=== PATIENT | female | born 1960 | race Caucasian/White ===

== ENCOUNTER 2020-06-20 12:07 | Outpatient (CLI) | payer BC, SELFPAY ==
[2020-06-20 12:49] LABS: Hematocrit 35.3 % (37.0-47.0); Hemoglobin 11.3 g/dL (12.0-15.0); Mean Corpuscular Hemoglobin 24.6 pg (26-34); Mean Corpuscular Volume 76.7 fl (80-100); Mean Platelet Volume 9.1 fl (7.4-10.4); Platelet Count Result 274 k/mm3 (150-375); Reticulocyte Hemoglobin Conten 27.4 pg (28.2-35.7); Reticulocytes Absolute 0.07 B/L (32.2-175.7); White Blood Count 6.6 K/mm3 (4.5-10.0)
[2020-06-20 13:51] LABS: Iron 34 ug/dL (37-170)
[2020-06-20 14:08] LABS: Folic Acid 12.9 ng/mL (2.76->20)
[2020-06-20 14:27] LABS: Ferritin 5.94 ng/mL (11.1-264)
== END 2020-06-20 12:08 | disposition home or self-care (01) ==
PROVIDERS: PCP Internal Medicine
DX: D50.0 Iron deficiency anemia secondary to blood loss (chronic) (principal)
CPT/HCPCS: 36415; 82607; 82728; 82746; 83540; 85027; 85046

== ENCOUNTER 2022-01-20 19:01 | Emergency (ER) | payer BC, SELFPAY ==
--- NOTE | ~2022-01-20 | XR_ITS ---
XR chest 2V 01/20/2022 19:21 Indication: Cough. Nonsmoker. Procedure: 2 view chest Comparison: 12/10/2016 Findings: There is subsegmental atelectasis of both lungs in the mid thorax. No focal pneumonia, juanito a, effusion or pneumothorax. Borderline heart size. Impression: 1: Bilateral subsegmental atelectasis of the mid lungs. Reviewed, dictated and finalized at location A. Impression: 1: Bilateral subsegmental atelectasis of the mid lungs.
[2022-01-20 19:10] VITALS: BP 219/97; PULSE 82; RESP 16; TEMP 37.1; O2SAT 98
--- NOTE | 2022-01-20 19:11 | ED.URI ---
HPI - URI/Sore Throat General Stated Complaint: sob Time Seen by Provider: 01/20/22 19:11 Source: patient and RN notes reviewed Mode of arrival: ambulatory Limitations: no limitations History of Present Illness HPI Narrative: 61-year-old female presents to the [facility] with complaints of chest pressure, cough and shortness of breath for approximately 1 week. States he got worse 2 days ago. patient called her primary care provider was called in a steroid but came here requesting a chest x-ray. Has not started her medications. Patient states that she did call her primary care provider and was not able to see her in office, was instructed to go the ER if she is having chest pressure. Patient states that when she was talking to her primary they told her to use an inhaler and if it does not get better to go to the ER. Pertinent past history: pneumonia, asthma, seasonal allergies and other (Hypertension) Onset (ago): day(s) (2) Related Data Home Medications Medication Instructions Recorded Confirmed albuterol sulfate 90 mcg/actuation 2 puff inhalation Q4H PRN 06/22/19 aerosol inhaler (ProAir HFA) baclofen 10 mg tablet 10 mg PO BID 06/22/19 celecoxib 200 mg capsule (Celebrex) 200 mg PO DAILY 06/22/19 clobetasol 0.05 % topical ointment 1 applic topical BID 06/22/19 epinephrine 0.1 mg/mL injection 0.1 mg IM Q10M PRN 06/22/19 syringe esomeprazole magnesium 40 mg 40 mg PO DAILY 06/22/19 capsule,delayed release (Nexium) estradiol 0.01% (0.1 mg/gram) 1 gm vaginal 3XW 06/22/19 vaginal cream (Estrace) ketoconazole 2 % topical cream 1 applic topical DAILY 06/22/19 labetalol 200 mg tablet 200 mg PO Q12H 06/22/19 montelukast 10 mg tablet 10 mg PO DAILY 06/22/19 (Singulair) pregabalin 75 mg capsule (Lyrica) 75 mg PO BID 06/22/19 sertraline 100 mg tablet 100 mg PO DAILY 06/22/19 tacrolimus 0.1 % topical ointment 1 applic topical BID 06/22/19 levothyroxine 100 mcg tablet 100 mcg DIRECTED 01/20/22 01/20/22 (Synthroid) losartan 100 mg tablet 100 mg DIRECTED 01/20/22 01/20/22 rosuvastatin 10 mg tablet 10 mg DIRECTED 01/20/22 01/20/22 trazodone 50 mg tablet 50 mg DIRECTED 01/20/22 01/20/22 Allergies Allergy/AdvReac Type Severity Reaction Status Date / Time acetaminophen Allergy Intermediate Unknown Verified 10/03/19 08:54 kiwi Allergy Unknown Swelling Unverified 10/03/19 08:54 propoxyphene AdvReac Unknown Nausea and Unverified 10/03/19 08:54 Vomiting Wasp Allergy Severe Swelling Uncoded 10/03/19 08:54 [employer] Allergy Unknown Swelling Uncoded 10/03/19 08:54 Review of Systems Review of Systems: All systems reviewed & are unremarkable except as noted in HPI and below Constitutional: Constitutional: Reports no additional constitutional complaints, Denies chills and Denies fever(s) Eyes: Eyes: Reports no additional eye complaints ENT: Reports system reviewed and no additional complaints, except as documented Cardiovascular: Cardiovascular: Reports as per HPI and Denies chest pain Respiratory: Respiratory: Reports as per HPI, Reports chest congestion, Reports cough and Reports dyspnea Gastrointestinal: Gastrointestinal: Reports no additional gastrointestinal complaints Musculoskeletal: Musculoskeletal: Reports no additional musculoskeletal complaints Integumentary/Breasts: Skin/Breast: Reports system reviewed and no additional complaints, except as docu Neurologic: Reports system reviewed and no additional complaints, except as documented Psychiatric: Psychiatric: Reports no additional psychiatric complaints Allergic/Immunologic: Allergic/Immunologic: Reports no additional allergic/immunologic complaints [facility] Past Medical History Medical History (Updated 01/20/22 @ 19:49 by Blank Barnes, ADRIANA) FESTUS positive Berg's palsy Chronic cough 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
[2022-01-20 19:47] VITALS: BP 180/106
--- NOTE | 2022-01-20 20:33 | ECG_ITS ---
Measurements Intervals [place] Rate: 75 P: 60 [place]: 155 QRS: 15 QRSD: 92 T: 21 QT: 345 QTc: 387 Interpretive Statements SINUS RHYTHM POSSIBLE LEFT ATRIAL ENLARGEMENT DELAYED PRECORDIAL R/S TRANSITION BORDERLINE ECG Electronically Signed On 01-21-2022 13:25:53 CDT by Mateo Morillo D.O.
== END 2022-01-20 19:47 | disposition short-term general hospital (02) ==
PROVIDERS: Emergency Provider Nurse Practitioner
DX: R06.02 Shortness of breath (principal); I10 Essential (primary) hypertension; J98.11 Atelectasis; M47.816 Spondylosis without myelopathy or radiculopathy, lumbar region
CPT/HCPCS: 71046; 93005; 99213; G0463

== ENCOUNTER 2022-01-20 20:06 | Observation (INO) | payer BC, SELFPAY ==
--- NOTE | 2022-01-20 20:10 | ECG_ITS ---
Measurements Intervals [place] Rate: 74 P: 57 AR: 151 QRS: 13 QRSD: 90 T: 18 QT: 357 QTc: 397 Interpretive Statements SINUS RHYTHM POSSIBLE LEFT ATRIAL ENLARGEMENT DELAYED PRECORDIAL R/S TRANSITION BORDERLINE ECG Electronically Signed On 01-20-2022 21:27:40 CDT by Mateo Morillo D.O.
[2022-01-20 20:31] LABS: Basophils Percent Auto 0.4 % (0.2-1.2); Eosinophils Absolute Auto 0.4 K/mm3 (0-0.3); Eosinophils Percent Auto 4.6 % (0-4.4); Hematocrit 42.1 % (37.0-47.0); Hemoglobin 14.5 g/dL (12.0-15.0); Immature Granulocyte Absolute 0.05 K/mm3 (0.00-0.031); Immature Granulocyte Percent A 0.6 % (0-0.5); Lymphocytes Absolute Auto 1.53 K/mm3 (0.9-3.2); Lymphocytes Percent Auto 16.9 % (18.3-44.2); Mean Corpuscular HGB Conc 34.4 g/dl (32-36); Mean Corpuscular Hemoglobin 31.9 pg (26-34); Mean Corpuscular Volume 92.5 fl (80-100); Mean Platelet Volume 8.6 fl (7.4-10.4); Monocytes Absolute Auto 0.8 K/mm3 (0.1-0.6); Monocytes Percent Auto 8.8 % (2.6-8.5); Neutrophils Absolute Auto 6.2 K/mm3 (1.3-6.7); Neutrophils Percent Auto 68.7 % (45.5-73.1); Platelet Count Result 227 k/mm3 (150-375); Red Blood Count 4.55 M/mm3 (4.2-5.4); Red Cell Distribution Width 13.1 % (11.5-14.5); White Blood Count 9.1 K/mm3 (4.5-10.0)
[2022-01-20 20:34] VITALS: BP 180/86; PULSE 78; RESP 20; TEMP 36.4; O2SAT 98
[2022-01-20 20:41] LABS: Alanine Aminotransferase 22 U/L (6-35); Albumin Level 4.2 g/dL (3.5-5.1); Alkaline Phosphatase 105 U/L (38-126); Anion Gap 6 mmol/L (8-16); Aspartate Amino Transferase 21 U/L (14-36); Bilirubin,Total 0.3 mg/dL (0.2-1.3); Blood Urea Nitrogen 16 mg/dL (7-17); Calcium 9.7 mg/dL (8.4-10.2); Carbon Dioxide 29 mmol/L (22-30); Chloride 98 mmol/L (98-107); Estimated Glomerular Filt Rate > 60; Glucose 113 mg/dL (65-110); Lipase 83 U/L (23-300); Sodium 133 mmol/L (137-145)
[2022-01-20 20:42] LABS: Prothrombin Time 13.2 Seconds (11.1-14.7)
[2022-01-20 20:43] LABS: Partial Thromboplastin Time 25.7 SECONDS (22.3-36.8)
[2022-01-20 20:53] LABS: Troponin I < 0.012 ng/mL (0.000-0.034)
[2022-01-21] VITALS (16 sets, daily range): BP systolic 146–188; BP diastolic 68–100; PULSE 62–88; RESP 15–19; TEMP 36.6–37.1; O2SAT 95–99; BMI 52.6
--- NOTE | 2022-01-21 02:14 | ED.CHESTPAIN ---
HPI - Chest Pain General Chief Complaint: Chest Pain Stated Complaint: chest pain, cough Time Seen by Provider: 01/21/22 01:46 History of Present Illness HPI narrative: Patient is a 61-year-old female who presents ER with central chest pain. Pressure. Constant for 3 days. Makes her short of breath especially with walking. No runny nose or sore throat or productive cough. Took a home COVID test but it was negative. 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 She was referred here by urgent care due to chest pain. No history of coronary disease. No alleviating factors. No radiation. Related Data Home Medications Medication Instructions Recorded Confirmed albuterol sulfate 90 mcg/actuation 2 puff inhalation Q4H PRN 06/22/19 01/20/22 aerosol inhaler (ProAir HFA) Shortness Of Breath Or Wheezing baclofen 10 mg tablet 10 mg PO BID 06/22/19 01/20/22 celecoxib 200 mg capsule (Celebrex) 200 mg PO DAILY 06/22/19 01/20/22 clobetasol 0.05 % topical ointment 1 applic topical BID 06/22/19 01/20/22 epinephrine 0.1 mg/mL injection 0.1 mg IM Q10M PRN Shortness Of 06/22/19 01/20/22 syringe Breath esomeprazole magnesium 40 mg 40 mg PO DAILY 06/22/19 01/20/22 capsule,delayed release (Nexium) estradiol 0.01% (0.1 mg/gram) 1 gm vaginal 3XW 06/22/19 01/20/22 vaginal cream (Estrace) ketoconazole 2 % topical cream 1 applic topical DAILY 06/22/19 01/20/22 labetalol 200 mg tablet 200 mg PO Q12H 06/22/19 01/20/22 montelukast 10 mg tablet 10 mg PO DAILY 06/22/19 01/20/22 (Singulair) pregabalin 75 mg capsule (Lyrica) 75 mg PO BID 06/22/19 01/20/22 sertraline 100 mg tablet 100 mg PO DAILY 06/22/19 01/20/22 tacrolimus 0.1 % topical ointment 1 applic topical BID 06/22/19 01/20/22 levothyroxine 100 mcg tablet 100 mcg DIRECTED 01/20/22 01/20/22 (Synthroid) losartan 100 mg tablet 100 mg DIRECTED 01/20/22 01/20/22 rosuvastatin 10 mg tablet 10 mg DIRECTED 01/20/22 01/20/22 trazodone 50 mg tablet 50 mg DIRECTED 01/20/22 01/20/22 Allergies Allergy/AdvReac Type Severity Reaction Status Date / Time kiwi Allergy Unknown Swelling Verified 01/20/22 20:39 oseltamivir [From Tamiflu] Allergy Hives Verified 01/20/22 20:39 tramadol Allergy Other Verified 01/20/22 20:39 propoxyphene AdvReac Unknown Nausea and Verified 01/20/22 20:39 Vomiting Wasp Allergy Severe Swelling Uncoded 10/03/19 08:54 [place] Allergy Unknown Swelling Uncoded 10/03/19 08:54 Review of Systems Review of Systems: All systems reviewed & are unremarkable except as noted in HPI and below Constitutional: Constitutional: Denies chills and Denies fever(s) ENT: Denies nasal congestion and Denies sore throat Cardiovascular: Cardiovascular: Reports chest pain, Denies rapid heart rate and Denies radiating jaw, neck or arm pain Respiratory: Respiratory: Reports cough, Reports dyspnea and Denies wheezing Gastrointestinal: Gastrointestinal: Denies abdominal pain, Denies nausea and Denies vomiting PMFSH Past Medical History Medical History (Updated 01/21/22 @ 04:34 by Rajendra Bowling MD) FESTUS positive Berg's palsy Chronic cough Hemorrhoid 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
[2022-01-21] MEDS: NITROGLYCERIN SL 0.4 MG TABLET SUBLINGUAL (02:37)
[2022-01-21 02:38] LABS: D Dimer < 0.27 ug/mL (<0.48)
[2022-01-21 02:52] LABS: Troponin I < 0.012 ng/mL (0.000-0.034)
[2022-01-21 05:30] LABS: SARS-CoV-2 RNA PCR Negative
--- NOTE | 2022-01-21 07:35 | ADMGEN ---
This patient, Alan Santiago, was admitted to Intensive Care Unit-4. Patient/family oriented to hospital policies and general routines including ID bracelet, bed and alarms, visiting hours, pain management, procedures, bathroom and other care routines, personal items, smoking policy, room service/diet, and visiting hours. Information on how to activate the Rapid Response Team has been discussed. Patient/Family are encouraged to report perceived risks to care and to ask questions if they do not understand what they are told or what they should do.
[2022-01-21] MEDS: carBAMazepine 200 MG TABLET 400 MG PO (09:29)
[2022-01-21] MEDS: MIRABEGRON 25 MG ER TABLET PO (11:05)
[2022-01-21] MEDS: hydroCHLOROthiazide 12.5 MG CAPSULE PO (11:06)
[2022-01-21] MEDS: LABETALOL HCL 100 MG TABLET 200 MG PO ×2 (11:06→21:26)
[2022-01-21] MEDS: BACLOFEN 10 MG TABLET PO ×2 (11:07→21:25)
[2022-01-21] MEDS: LOSARTAN POTASSIUM 100 MG TABLET BY MOUTH (11:09)
[2022-01-21] MEDS: SERTRALINE HCL 50 MG TABLET 100 MG PO (11:09)
[2022-01-21] MEDS: ROSUVASTATIN 10 MG TABLET PO (11:10)
[2022-01-21] MEDS: CELECOXIB 200 MG CAPSULE PO (11:10)
--- NOTE | 2022-01-21 11:52 | PM.IMHP ---
H&P: HPI History of Present Illness Date/Time: 01/21/22 11:52 Chief Complaint: Patient is a 61-year-old female who presents ER with central chest pain.? Pressure.? Constant for 3 days.? Makes her short of breath especially with walking.? No runny nose or sore throat or productive cough.? Took a home COVID test but it was negative.? 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 She was referred here by urgent care due to chest pain.? No history of coronary disease.? No alleviating factors.? No radiation. 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mily history of congestive heart failure Mother Family history of malignant neoplasm Family history of emphysema Hypertension Family history of arthritis Family history of chronic obstructive pulmonary disease Social History Social History Smoking status: Never smoker Alcohol intake: never Substance use: never Spiritual care concerns: No Meds Home Medications and Allergies Home Medications Medication Instructions Recorded Confirmed Type albuterol sulfate 90 mcg/actuation 2 puff inhalation Q4H PRN 06/22/19 01/21/22 History aerosol inhaler (ProAir HFA) Shortness Of Breath Or Wheezing baclofen 10 mg tablet 10 mg PO BID 06/22/19 01/21/22 History celecoxib 200 mg capsule (Celebrex) 200 mg PO DAILY 06/22/19 01/21/22 History clobetasol 0.05 % topical ointment 1 applic topical BID 06/22/19 01/21/22 History epinephrine 0.1 mg/mL injection 0.1 mg IM Q10M PRN Allergic 06/22/19 01/21/22 History syringe Reaction esomeprazole magnesium 40 mg 40 mg PO BID 06/22/19 01/21/22 History capsule,delayed release (Nexium) estradiol 0.01% (0.1 mg/gram) 1 gm vaginal 3XW 06/22/19 01/21/22 History vaginal cream (Estrace) ketoconazole 2 % topical cream 1 applic topical HS 06/22/19 01/21/22 History labetalol 200 mg tablet 200 mg PO Q12H 06/22/19 01/21/22 History sertraline 100 mg tablet 100 mg PO DAILY 06/22/19 01/21/22 History tacrolimus 0.1 % topical ointment 1 applic topical BID 06/22/19 01/21/22 History levothyroxine 100 mcg tablet 100 mcg DAILY 01/20/22 01/21/22 History (Synthroid) losartan 100 mg tablet 100 mg DAILY 01/20/22 01/21/22 History rosuvastatin 10 mg tablet 10 mg PO DAILY 01/20/22 01/21/22 History trazodone 50 mg tablet 50 mg PO HS 01/20/22 01/21/22 History carbamazepine 200 mg 400 mg PO Q12H 01/21/22 01/21/22 History capsule,extended release [id number] eluxadoline 100 mg tablet (Viberzi) 100 mg PO BID 01/21/22 01/21/22 History hydrochlorothiazide 12.5 mg tablet 12.5 mg PO DAILY 01/21/22 01/21/22 History ibandronate 150 mg tablet 150 mg PO ONCE 01/21/22 01/21/22 History mirabegron 25 mg tablet,extended 25 mg PO DAILY 01/21/22 01/21/22 History release 24 hr (Myrbetriq) Allergies Allergy/AdvReac Type Severity Reaction Status Date / Time kiwi Allergy Unknown Swelling Keyshawn
[2022-01-21] MEDS: PANTOPRAZOLE 40 MG TABLET PO (17:06)
[2022-01-21] MEDS: amLODIPine BESYLATE 5 MG TABLET 10 MG PO (17:07)
[2022-01-21] MEDS: CALCIUM CARBONATE (TUMS) 500 MG (200 MG ELEMENTAL) PO (21:24)
[2022-01-21] MEDS: CARBAMAZEPINE XR 200 MG TAB.ER.12H 400 MG PO (21:25)
[2022-01-21] MEDS: traZODone HCL 50 MG TABLET PO (21:26)
[2022-01-21] MEDS: MICONAZOLE NITRATE 2% CREAM 30 GM TUBE 1 APPLIC TOPICAL (21:27)
[2022-01-22] VITALS (8 sets, daily range): BP systolic 136–149; BP diastolic 75–78; PULSE 60–97; RESP 16–24; TEMP 36.5; O2SAT 95–96
[2022-01-22] MEDS: LEVOTHYROXINE SODIUM 100 MCG TABLET BY MOUTH (06:53)
[2022-01-22] MEDS: CELECOXIB 200 MG CAPSULE PO (08:52)
[2022-01-22] MEDS: ROSUVASTATIN 10 MG TABLET PO (08:52)
[2022-01-22] MEDS: amLODIPine BESYLATE 5 MG TABLET 10 MG PO (08:52)
[2022-01-22] MEDS: MIRABEGRON 25 MG ER TABLET PO (08:52)
[2022-01-22] MEDS: SERTRALINE HCL 50 MG TABLET 100 MG PO (08:52)
[2022-01-22] MEDS: CARBAMAZEPINE XR 200 MG TAB.ER.12H 400 MG PO (08:52)
[2022-01-22] MEDS: PANTOPRAZOLE 40 MG TABLET PO (08:52)
[2022-01-22] MEDS: LABETALOL HCL 100 MG TABLET 200 MG PO (08:52)
[2022-01-22] MEDS: hydroCHLOROthiazide 12.5 MG CAPSULE PO (08:52)
[2022-01-22] MEDS: LOSARTAN POTASSIUM 100 MG TABLET BY MOUTH (08:52)
[2022-01-22] MEDS: TACROLIMUS 0.1% 30 GM OINTMENT 1 APPLIC TOPICAL (08:54)
--- NOTE | 2022-01-22 11:52 | PM.DS ---
DS: Admitting Diagnosis Discharge Date January 22, 2022 Admitting Diagnosis Hypertensive urgency DS: Discharge Diagnosis Discharge Diagnosis (1) Atypical chest pain: Code(s): R07.89 - Other chest pain Status: Acute Assessment and Plan: Likely secondary to elevated blood pressure. Cardiac troponins have been negative. No more chest pain is noted. (2) Hypertension: Code(s): I10 - Essential (primary) hypertension Status: Acute Assessment and Plan: Patient was admitted for hypertensive urgency. Patient reports spikes of blood pressure at home. We adjusted her blood pressure medications and blood pressure came down last blood pressure was 147/90. Patient can be discharged home with increasing her dose of amlodipine. Otherwise she is to continue her prior home medications. (3) Left-sided Berg's palsy: Code(s): G51.0 - Berg's palsy Status: Acute Assessment and Plan: Continue home meds (4) GERD (gastroesophageal reflux disease): Code(s): K21.9 - Gastro-esophageal reflux disease without esophagitis Status: Acute Assessment and Plan: Continue home meds (5) Hyperlipemia: Code(s): E78.5 - Hyperlipidemia, unspecified Status: Acute Assessment and Plan: Continue home meds DS: Summary Hospital Course Hospital Course: See discharge plan diagnoses Time Spent with Patient Time attestation: Total time spent providing and/or coordinating discharge services: Exam Narrative: General: alert and oriented Psych: appropriate mood nad affect Eyes: PERRLA Neck: Trachea midline, no new lesions Skin: no changes Lungs: CTA Cardiac: Normal S1,S2, no MGR ABD: soft, nd, nt, nbs Ext: no new lesions, no cce Vasc: Pulses intact Discharge Plan Discharge Attending physician on discharge: Melvin Steel Discharging Clinician: Melvin Steel Patient Disposition: Home, Self-Care Activity: no preference Diet: as tolerated Patient Instructions: Antibiotic Form, Hypertensive Crisis (DC) Stand Alone Forms: General Discharge Information Follow-up/Referrals: Rik,Pratibha Carter MD [Primary Care Provider] - Discharge Medications: New amlodipine 10 mg tablet 10 mg PO DAILY 30 Days Qty: 30 0RF Continued trazodone 50 mg tablet 50 mg PO HS levothyroxine [Synthroid] 100 mcg tablet 100 mcg DAILY losartan 100 mg tablet 100 mg DAILY rosuvastatin 10 mg tablet 10 mg PO DAILY carbamazepine 200 mg Capsule, Er Multiphase 12 Hr 400 mg PO Q12H ibandronate 150 mg Tablet 150 mg PO ONCE hydrochlorothiazide 12.5 mg Tablet 12.5 mg PO DAILY Myrbetriq 25 mg Tablet Extended Release 24 Hr 25 mg PO DAILY Viberzi 100 mg Tablet 100 mg PO BID Rx Instructions: must administer with a meal/food clotrimazole 1 % cream 1 applic TOPICAL BID PRN (Reason: Yeast Infestion) Rx Instructions: Apply to skin folds baclofen 10 mg tablet 10 mg PO BID celecoxib [Celebrex] 200 mg capsule 200 mg PO DAILY clobetasol 0.05 % ointment 1 applic TOPICAL BID Rx Instructions: To left face epinephrine 0.1 mg/mL syringe 0.1 mg IM Q10M PRN (Reason: Allergic Reaction) estradiol [Estrace] 0.01 % (0.1 mg/gram) cream 1 gm VAGINAL 3XW ketoconazole 2 % cream 1 applic TOPICAL BID PRN (Reason: yeast infection) Rx Instructions: apply to under breast and skin folds labetalol 200 mg tablet 200 mg PO Q12H esomeprazole magnesium [Nexium] 40 mg capsule,delayed release(DR/EC) 40 mg PO BID albuterol sulfate [ProAir HFA] 90 mcg/actuation HFA aerosol inhaler 2 puff INHALATION Q4H PRN (Reason: Shortness Of Breath Or Wheezing) sertraline 100 mg tablet 100 mg PO DAILY tacrolimus 0.1 % ointment 1 applic TOPICAL BID Rx Instructions: Apply to peria[place] No Action amlodipine 5 mg tablet 5
== END 2022-01-22 12:41 | disposition home or self-care (01) ==
LOC: ANHED 01-21 04:34 → ANHICU 01-21 14:47
PROVIDERS: General Practice; Admitting Provider Internal Medicine; Emergency Provider Emergency Medicine; PCP Internal Medicine; Visit Provider Chiropractor
DX: R07.89 Other chest pain (principal); I10 Essential (primary) hypertension; M47.816 Spondylosis without myelopathy or radiculopathy, lumbar region; G51.0 Bell's palsy; Z90.710 Acquired absence of both cervix and uterus; K21.9 Gastro-esophageal reflux disease without esophagitis; E78.5 Hyperlipidemia, unspecified; J98.11 Atelectasis; R76.0 Raised antibody titer; Z20.822 Contact with and (suspected) exposure to COVID-19; Z79.51 Long term (current) use of inhaled steroids; Z79.899 Other long term (current) drug therapy
CPT/HCPCS: 36415; 80053; 83690; 84484; 85025; 85380; 85610; 85730; 93005; 99285; A9270; C9803; G0378; U0003; U0005

== ENCOUNTER 2022-03-25 08:43 | Outpatient (CLI) | payer BC, SELFPAY ==
--- NOTE | ~2022-03-25 | NM_ITS ---
EXAMINATION: NM gian stress w perfusion DATE: 03/25/2022 12:59 INDICATION: Chest pain TECHNIQUE: Rest images were obtained following intravenous administration of 10.4 mCi Tc99m tetrofosm in (Myoview). The patient was infused intravenously with Lexiscan (Regadenoson). Then, 3.8 mCi Tc99m tetrofosmin (Myoview) was administered intravenously, and stress images were obtained initially in th e supine position and with additional prone post stress images also obtained. Data was reconstructed into short axis and horizontal and vertical long axis SPECT images. Gated SPECT images were also obta ined. COMPARISON: None. FINDINGS: There is no definite reversible or fixed perfusion abnormality to suggest ischemia or infar ction. There is normal left ventricular chamber size, wall motion and ejection fraction. Left ventr icular ejection fraction measures >70%. IMPRESSION: 1. Normal myocardial perfusion at rest and during stress. 2. Left ventricular ejection fraction measuring >70%. Reviewed, dictated and finalized at location A.
--- NOTE | 2022-03-25 08:52 | ECHO_ITS ---
Patient Info Name: Alan Santiago Age: 62 years : 1960 Gender: Female Ht: 58 in Wt: 245 lbs BSA: 2.21 m2 HR: 69 bpm BP: 166 / 96 mmHg Technical Quality: Good Exam Date: 03/25/2022 9:18 AM Exam Location: [facility] Pulmonary Patient Status: Outpatient Admit Date: 03/25/2022 Staff Ordering Physician: Mateo Morillo DO Podiatric Medicine Doctor: Carlos Dyer RDCS Attending Provider: Mateo Morillo DO Referring Physician: Ilia SAMUELS; Exam Type: CA echo doppler color flow Study Info Indications R07.9 - Chest pain, unspecified Complete two-dimensional, color flow and Doppler transthoracic echocardiogram is performed. Summary 1. Complete two-dimensional, color flow and Doppler transthoracic echocardiogram is performed. 2. Left ventricular chamber dimension is normal. 3. Left ventricular systolic function is normal, estimated at 65-70%. 4. The left ventricular diastolic function is abnormal. 5. E/e' 14 is mildly elevated. 6. Left atrial chamber dimension is mildly enlarged. 7. There is mild aortic valve sclerosis. 8. The mitral valve has moderately calcified annulus. 9. There is trace pulmonic regurgitation. Left Ventricle E/e' 14 is mildly elevated. Left ventricular chamber dimension is normal. Left ventricular systolic function is normal, estimated at 65-70%. The left ventricular diastolic function is abnormal. Right Ventricle Right ventricular systolic function is normal and with normal TAPSE 2.0 cm. Right ventricular chamber dimension is normal. Left Atria Left atrial chamber dimension is mildly enlarged. Right Atria Right atrial chamber dimension is normal. Aortic Valve The aortic valve is trileaflet. There is mild aortic valve sclerosis. There is no aortic valve stenosis. There is no aortic valve regurgitation. Pulmonic Valve There is trace pulmonic regurgitation. Mitral Valve The mitral valve has moderately calcified annulus. There is no mitral valve stenosis. There is no mitral valve regurgitation. Tricuspid Valve There is no tricuspid valve regurgitation. Pericardium/Pleural There is no pericardial effusion. Inferior Vena Cava Normal inferior vena cava with >50% collapse upon inspiration consistent with normal right atrial pressure, 5 mmHg. Aorta The aortic root size at the sinus of Valsalva is normal. Left Ventricular Outflow Tract Name Value Normal LVOT 2D LVOT Diameter 1.7 cm LVOT Doppler LVOT Peak Gradient 12 mmHg LVOT Mean Gradient 8 mmHg LVOT VTI 40 cm LVOT VTI/AV VTI Ratio 0.9 LVOT Stroke Volume 85 ml LVOT CO 6.4 l/min LVOT CI 2.9 l/min/m2 Mitral Valve Name Value Normal MV Doppler
--- NOTE | 2022-03-25 10:18 | EST_ITS ---
Patient Info Name: Alan Santiago Age: 62 years : 1960 Gender: Female Ht: 60 in Wt: 245 lbs BSA: 2.24 m2 HR: 71 bpm BP: 173 / 74 mmHg Exam Date: 03/25/2022 11:13 AM Exam Location: [facility] Stress Patient Status: Outpatient Admit Date: 03/25/2022 Staff Ordering Physician: Mateo Morillo DO Attending Provider: Mateo Morillo DO Exercise Technologist: Syl Haro CT Exam Type: CA stress gian w NM Study Info Indications R07.9 - Chest pain, unspecified A regadenoson stress test was performed. Summary 1. 1. Negative lexiscan stress test for ischemic ST changes by ECG criteria. 2. 2. Baseline hypertension. 3. 3. Nuclear scan to follow and will be reported separately. Please correlate with it. 4. 4. Patient informed of the above results. Protocol: Lexiscan Stress ECG Details Stage: REST Duration (min): 2 min : 20 sec HR (bpm): 67 SBP (mmHg): 173 DBP (mmHg): 74 Stage: REST Duration (min): 12 min : 43 sec HR (bpm): 70 SBP (mmHg): 173 DBP (mmHg): 74 Stage: STAGE 1 Duration (min): 0 min : 59 sec HR (bpm): 89 SBP (mmHg): 194 DBP (mmHg): 71 Stage: RECOVERY Duration (min): 1 min : 0 sec HR (bpm): 92 SBP (mmHg): 194 DBP (mmHg): 71 Stage: RECOVERY Duration (min): 2 min : 0 sec HR (bpm): 90 SBP (mmHg): 194 DBP (mmHg): 71 Stage: RECOVERY Duration (min): 3 min : 0 sec HR (bpm): 90 SBP (mmHg): 194 DBP (mmHg): 71 Stage: RECOVERY Duration (min): 3 min : 18 sec HR (bpm): 88 SBP (mmHg): 158 DBP (mmHg): 67 Rest HR: 70 bpm Peak HR: 94 bpm Rest Sys BP: 173 mmHg Peak Sys BP: 194 mmHg Max Pred HR: 158 bpm % Max Pred HR: 59 % Target HR: 134 bpm Max RPP: 18,236 bpm*mmHg Termination Reason: Completed protocol Cardiac Symptoms: Shortness of breath, Headache, flushed, nausea Total Time: 1 min : 0 sec Rest Carranza BP: 74 mmHg Peak Carranza BP: 71 mmHg Total Dose: 0.4 mg Resting ECG Sinus rhythm. Stress ECG No ST changes. Arrhythmias None. Report Signatures
== END 2022-03-25 08:44 | disposition home or self-care (01) ==
LOC: ANHCARD 08:44
PROVIDERS: PCP Internal Medicine; Visit Provider Internal Medicine Cardiovascular Disease
DX: R07.89 Other chest pain (principal); R01.1 Cardiac murmur, unspecified
CPT/HCPCS: 78452; 93017; 93306; A9502; J2785

== ENCOUNTER 2022-04-24 14:04 | Emergency (ER) | payer BC, SELFPAY ==
[2022-04-24 14:12] VITALS: BP 151/73; PULSE 76; RESP 18; TEMP 37.5; O2SAT 98
--- NOTE | 2022-04-24 14:14 | ED.URI ---
HPI - URI/Sore Throat General Chief Complaint: Upper Respiratory Infection Stated Complaint: sore throat, cough Time Seen by Provider: 04/24/22 14:14 Source: patient, RN notes reviewed and old records reviewed Mode of arrival: ambulatory Limitations: no limitations History of Present Illness HPI Narrative: 62-year-old female presents to the [facility] with complaints of a sore throat that is progressively gotten worse over the last 2 weeks. Reports cough has been burning. Related Data Home Medications Medication Instructions Recorded Confirmed albuterol sulfate 90 mcg/actuation 2 puff inhalation Q4H PRN 06/22/19 04/24/22 aerosol inhaler (ProAir HFA) Shortness Of Breath Or Wheezing baclofen 10 mg tablet 10 mg PO HS 06/22/19 04/24/22 celecoxib 200 mg capsule (Celebrex) 200 mg PO DAILY 06/22/19 04/24/22 clobetasol 0.05 % topical ointment 1 applic topical BID 06/22/19 04/24/22 epinephrine 0.1 mg/mL injection 0.1 mg IM Q10M PRN Allergic 06/22/19 04/24/22 syringe Reaction esomeprazole magnesium 40 mg 40 mg PO BID 06/22/19 04/24/22 capsule,delayed release (Nexium) estradiol 0.01% (0.1 mg/gram) 1 gm vaginal 3XW 06/22/19 04/24/22 vaginal cream (Estrace) labetalol 200 mg tablet 200 mg PO Q12H 06/22/19 04/24/22 tacrolimus 0.1 % topical ointment 1 applic topical BID 06/22/19 04/24/22 levothyroxine 100 mcg tablet 100 mcg DAILY 01/20/22 04/24/22 (Synthroid) rosuvastatin 10 mg tablet 10 mg PO DAILY 01/20/22 04/24/22 trazodone 50 mg tablet 50 mg PO HS 01/20/22 04/24/22 carbamazepine 200 mg 400 mg PO Q12H 01/21/22 04/24/22 capsule,extended release [id number] eluxadoline 100 mg tablet (Viberzi) 100 mg PO BID 01/21/22 04/24/22 ibandronate 150 mg tablet 150 mg PO ONCE 01/21/22 04/24/22 mirabegron 25 mg tablet,extended 25 mg PO DAILY 01/21/22 04/24/22 release 24 hr (Myrbetriq) clotrimazole 1 % topical cream 1 applic topical BID PRN Itching 01/22/22 04/24/22 (Lotrimin AF (clotrimazole)) duloxetine 30 mg capsule,delayed 30 mg PO HS 01/22/22 04/24/22 release hydrochlorothiazide 12.5 mg tablet 25 mg PO DAILY 02/27/22 04/24/22 ketorolac 0.5 % eye drops 1 drp DIRECTED 04/24/22 04/24/22 Allergies Allergy/AdvReac Type Severity Reaction Status Date / Time kiwi Allergy Unknown Swelling Verified 02/27/22 10:24 oseltamivir [From Tamiflu] Allergy Hives Verified 02/27/22 10:24 tramadol Allergy Other Verified 02/27/22 10:24 propoxyphene AdvReac Unknown Nausea and Verified 02/27/22 10:24 Vomiting Wasp Allergy Severe Swelling Uncoded 02/27/22 10:24 [place] Allergy Unknown Swelling Uncoded 02/27/22 10:24 Review of Systems Review of Systems: All systems reviewed & are unremarkable except as noted in HPI and below Constitutional: Constitutional: Reports no additional constitutional complaints, Denies chills and Denies fever(s) Eyes: Eyes: Reports no additional eye complaints ENT: Reports as per HPI and Reports sore throat Cardiovascular: Cardiovascular: Reports no additional cardiovascular complaints Respiratory: Respiratory: Reports as per HPI and Reports cough Gastrointestinal: Gastrointestinal: Reports no additional gastrointestinal complaints Musculoskeletal: Musculoskeletal: Reports no additional musculoskeletal complaints Integumentary/Breasts: Skin/Breast: Reports system reviewed and no additional complaints, except as docu Neurologic: Reports system reviewed and no additional complaints, except as documented Psychiatric: Psychiatric: Reports no additional psychiatric complaints Allergic/Immunologic: Allergic/Immunologic: Reports no additional allergic/immunologic complaints [facility] Past Medical History Medical History (Updated 04/24/22 @ 20:17 by Blank Barnes APRN) FESTUS positive Berg's palsy Chronic cough Hemorrhoid 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
== END 2022-04-24 14:56 | disposition home or self-care (01) ==
PROVIDERS: Emergency Provider Nurse Practitioner; PCP Internal Medicine
DX: R05.9 Cough, unspecified (principal); J32.9 Chronic sinusitis, unspecified; J02.9 Acute pharyngitis, unspecified
CPT/HCPCS: 87081; 87880; 99213; G0463

== ENCOUNTER 2022-07-17 08:56 | Outpatient (CLI) | payer BC, SELFPAY ==
[2022-07-17 10:38] LABS: Vitamin D 25 Hydroxy 26.3 ng/mL
== END 2022-07-17 08:57 | disposition home or self-care (01) ==
LOC: ANHLAB 08:58
PROVIDERS: PCP Internal Medicine; Visit Provider Anesthesiology
DX: M81.0 Age-related osteoporosis without current pathological fracture (principal)
CPT/HCPCS: 36415; 82306

== ENCOUNTER 2022-11-05 08:21 | Outpatient (CLI) | payer BC, SELFPAY ==
--- NOTE | 2022-11-27 18:58 | WPDSLEEPSTUD ---
Sleep Study Date of Study: 11/05/22 Ordering Provider: Maegan Velazquez Interpreting Physician: Day Mathur MD Sleep Study Type: CPAP Titration Height: 1.5 m Weight: 113.398 kg Body Mass Index: 50.5 Neck Circumference (inches): 15 [place]: 18 Reason for Sleep Study Hypersomnolence; known obstructive sleep apnea Sleep History Alan Santiago is a 62-year-old woman with hypertension, hyperlipidemia and prior COVID infection; she has obstructive sleep apnea and uses CPAP at home. she says she has been struggling to catch her breath since she had COVID June 22, 2022. She has not fully recovered. Both her parents used oxygen with CPAP. She uses a medication to help get to sleep. She frequently awakens from sleep feeling short of breath. She does not awaken at night with heartburn, belching or coughing. Using CPAP, she does not snore. She frequently has trouble sleeping with a cold. She does not wake up gasping for breath at night. She does not sweat excessively at night or notice her heart pounding or beating irregularly at night. She occasionally falls asleep during the day, occasionally falls asleep involuntarily, rarely falls asleep while driving. She does not have loss of muscle tone with strong emotion. She rarely has daytime difficulties due to excessive sleepiness. 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 She does not feel paralyzed on waking or falling asleep. She does not have vivid dreamlike scenes on waking or falling asleep. She does not feel afraid to go to sleep. She does not have nightmares. She occasionally remembers her dreams. She does not have racing thoughts. She occasionally feels sad or depressed. She does not have anxiety. She frequently has muscular tension. She does not notice parts of her body jerking. She does not kick at night. She does not have crawling or aching feelings in her legs. She has no leg pain at night. She does not have morning jaw pain or grind her teeth at night. She always is bothered by pain during the day. She frequently is awakened by pain during the night. Normal bedtime is 11 pm, falling asleep within 5 minutes. She wakes between 2 and 4 times at night. 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 If she accidentally rolls on her left side, this wakes her. She wakes at 7 am. Weekend schedule is the same. She takes naps only since having COVID. A short nap lasting 10-15 minutes may be refreshing. She is drowsy for 3 horus after waking. She feel better i tneh evening compared to other times of day. Habits: Never smoked. Caffeine: 12 oz a day. No alcohol or recreational substances. [facility] Past Medical History Medical History (Updated 11/27/22 @ 19:59 by Day Mathur MD) FESTUS positive Berg's palsy Chronic cough Hemorrhoid Hypertension Left-sided Berg's palsy PREET (obstructive sleep apnea) Spondylosis without myelopathy or radiculopathy, lumbar region Surgical History Surgical History H/O: hysterectomy History of carpal tunnel release Family History Family History Grandparent Cerebrovascular accident Family history of malignant neoplasm Family history of malignant neoplasm of breast Sibling Family history of malignant neoplasm of breast Patient's sister is in good health Family history of malignant neoplasm of breast in first degree relative Father Family history of cardiovascular disease Family history of arthritis Malignant neoplasm of prostate Family history of congestive heart failure Mother Family history of malignant neoplasm Family history of emphysema Hypertension Family history of arthritis Family history of chronic obstructive pulmonary disease Social History Social History Smoking status: Never smoker Alcoho
[2022-11-27 20:10] VITALS: BMI 50.5
== END 2022-11-06 06:37 | disposition home or self-care (01) ==
LOC: ANHCSM 08:22
PROVIDERS: PCP Internal Medicine
DX: G47.33 Obstructive sleep apnea (adult) (pediatric) (principal)
CPT/HCPCS: 95811

== ENCOUNTER → 2023-04-09 07:46 | Outpatient (CLI) | payer BC, SELFPAY ==
--- NOTE | ~2023-04-09 | US_ITS ---
US right upper quadrant INDICATION: Elevated alkaline phosphatase levels PROCEDURE: Realtime right upper abdominal ultrasound. COMPARISON: No prior studies for comparison. FINDINGS: The pancreas is normal without focal mass or pancreatic ductal dilation. Liver echotexture is normal without focal mass or intrahepatic biliary dilatation. There is normal directional flow i n the portal vein. The gallbladder is normal without stones, gallbladder wall thickening or pericholecystic fluid. Comm on bile duct measures 5 mm. No sonographic Moore's sign. IMPRESSION: 1: Normal limited abdominal ultrasound. Reviewed, dictated and finalized at location B.
== END ==
PROVIDERS: PCP Student in an Organized Health Care Education/Training Program; Visit Provider Student in an Organized Health Care Education/Training Program
DX: R74.8 Abnormal levels of other serum enzymes (principal)
CPT/HCPCS: 76705

== ENCOUNTER → 2023-04-19 12:59 | Outpatient (CLI) | payer BC, SELFPAY ==
--- NOTE | ~2023-04-19 | US_ITS ---
EXAMINATION: US carotid duplex BI DATE: 04/19/2023 13:57 INDICATION: Bilateral carotid bruits TECHNIQUE: Grayscale, color Doppler, and pulsed Doppler images of the cervical carotid arteries were obtained. The degree of vessel stenosis is placed in one of the following categories: normal, <50%, 5 0-69%, >=70% but less than near-occlusion, near-occlusion, or total occlusion. Note that percent sten osis relative to normal distal artery lumen diameter is indirectly measured from velocity measurement s as described by Nate, et al. Radiology 2003; 229:340-346. Notes: Normal: Peak systolic velocity <125 centimeters/sec and no plaque <50%. Peak systolic velocity <125 ( EDV <40; ICA/CCA PSV ratio <2.0; used these factors only a tandem lesions or low cardiac output or co ntralateral disease) 50-69 %: PSV 125-230 (EDV 40-100; ratio 2-4) >= 70% but less than near occlusion: PSV greater than 230 (EDV > 100; ratio> 4.0) Near Occlusion: PSV that is variable; markedly narrowed lumen Occlusion: Absent flow on color/spectral Doppler and no lumen on khanna scale. COMPARISON: None. FINDINGS: RIGHT: The right common carotid artery (CCA) peak systolic velocity (PSV) is 78 cm/s. The right internal car otid artery (ICA) PSV is 66 cm/s. The right ICA end-diastolic velocity (EDV) is 12 cm/s. The right IC A/CCA PSV ratio is 0.9. The external carotid artery (ECA) PSV is 99 cm/s. There is antegrade flow in the right vertebral artery. LEFT: The left CCA PSV is 69 cm/s. The left ICA PSV is 54 cm/s. The left ICA EDV is 14 cm/s. The left ICA/C CA PSV ratio is 0.8. The ECA PSV is 90 cm/s. There is antegrade flow in the left vertebral artery. IMPRESSION: 1. Less than 50% stenosis in the right internal carotid artery by sonographic criteria. 2. Less than 50% stenosis in the left internal carotid artery by sonographic criteria. Reviewed, dictated and finalized at location B. IMPRESSION: 1. Less than 50% stenosis in the right internal carotid artery by sonographic c lorenzo. 2. Less than 50% stenosis in the left internal carotid artery by sonographic cr stephane.
== END ==
PROVIDERS: PCP Student in an Organized Health Care Education/Training Program; Visit Provider Nurse Practitioner Family
DX: I65.23 Occlusion and stenosis of bilateral carotid arteries (principal); R09.89 Other specified symptoms and signs involving the circulatory and respiratory systems
CPT/HCPCS: 93880

== ENCOUNTER 2024-06-04 15:19 | Emergency (ER) | payer BC, SELFPAY ==
[2024-06-04 15:28] VITALS: BP 146/75; PULSE 65; RESP 18; TEMP 37.3; O2SAT 98
[2024-06-04 15:40] LABS: EDUAAPPEAR Cloudy; EDUABILI 1+ (Negative); EDUABLOOD 2+ (Negative); EDUACOLOR1 Amber; EDUAGLUCOSE Negative (Negative); EDUAKETONE Trace (Negative); EDUALEUKO 1+ (Negative); EDUANITRATE Negative (Negative); EDUAPH 7.5; EDUAPROTEIN 2+ (Negative)
--- NOTE | 2024-06-04 15:47 | ED_ITS ---
HPI - Female Genitourinary General Chief complaint: Urogenital-Female Stated complaint: UTI Time Seen by Provider: 06/04/24 15:40 Source: patient and RN notes reviewed Mode of arrival: ambulatory Limitations: no limitations History of Present Illness HPI Narrative: Patient presents today complaining urinary frequency, urgency, 2 episodes of urinary incontinence, and pain at the end of her urine flow. Symptoms began last night. Denies abdominal pain, flank pain, fever, sweats or chills, nausea or vomiting. No [id number] treatment prior to arrival. Related Data Home Medications Medication Instructions Recorded Confirmed albuterol sulfate 90 mcg/actuation 2 puff inhalation Q4H PRN 06/22/19 06/04/24 aerosol inhaler (ProAir HFA) Shortness Of Breath Or Wheezing baclofen 10 mg tablet 10 mg PO HS 06/22/19 06/04/24 celecoxib 200 mg capsule (Celebrex) 200 mg PO DAILY 06/22/19 06/04/24 clobetasol 0.05 % topical ointment 1 applic topical BID 06/22/19 06/04/24 epinephrine 0.1 mg/mL injection 0.1 mg IM Q10M PRN Allergic 06/22/19 06/04/24 syringe Reaction esomeprazole magnesium 40 mg 40 mg PO BID 06/22/19 06/04/24 capsule,delayed release (Nexium) labetalol 200 mg tablet 200 mg PO Q12H 06/22/19 06/04/24 tacrolimus 0.1 % topical ointment 1 applic topical BID 06/22/19 06/04/24 carbamazepine 200 mg 400 mg PO Q12H 01/21/22 06/04/24 capsule,extended release [id number] mirabegron 25 mg tablet,extended 25 mg PO DAILY 01/21/22 06/04/24 release 24 hr (Myrbetriq) duloxetine 30 mg capsule,delayed 60 mg PO HS 04/07/24 06/04/24 release eluxadoline 100 mg tablet (Viberzi) 100 mg PO BID 04/07/24 06/04/24 ibandronate 150 mg tablet 150 mg PO MONTHLY 04/07/24 06/04/24 levothyroxine 100 mcg tablet 112 mcg PO DAILY 04/07/24 06/04/24 (Synthroid) trazodone 50 mg tablet 100 mg PO HS 04/07/24 06/04/24 Allergies Allergy/AdvReac Type Severity Reaction Status Date / Time amoxicillin Allergy Mild Hives Verified 06/04/24 15:21 levopropoxyphene Allergy Mild Hives Verified 06/04/24 15:21 kiwi Allergy Unknown Swelling Verified 06/04/24 15:21 oseltamivir [From Tamiflu] Allergy Hives Verified 06/04/24 15:21 tramadol Allergy Other Verified 06/04/24 15:21 propoxyphene AdvReac Unknown Nausea and Verified 06/04/24 15:21 Vomiting Wasp Allergy Severe Swelling Uncoded 06/04/24 15:21 [place] Allergy Unknown Swelling Uncoded 06/04/24 15:21 Review of Systems Review of Systems: CONSTITUTIONAL: Denies body aches, fever, chills, or sweats. EYES: Denies visual changes, redness, or discharge. ENT: Denies rhinorrhea, congestion, sore throat, or otalgia. CARDIOVASCULAR: Denies chest pain, palpitations, or edema. RESPIRATORY: Denies cough or dyspnea. GASTROINTESTINAL: Denies abdominal pain, nausea, vomiting, or diarrhea. GENITOURINARY: +dysuria, incontinence, frequency, urgency SKIN: Denies rash, itching, or wounds. MUSCULOSKELETAL: Denies back pain, joint pain, or myalgia. NEUROLOGIC: Denies headache, numbness, tingling, or weakness. PSYCH: Denies depression or anxiety. [facility] Past Medical History Medical History FESTUS positive Berg's palsy Chronic cough Hemorrhoid Hypertension Left-sided Berg's palsy PREET (obstructive sleep apnea) Spondylosis without myelopathy or radiculopathy, lumbar region Surgical History Surgical History H/O: hysterectomy History of carpal tunnel release Family History Family History Grandparent Cerebrovascular accident Family history of malignant neoplasm Family history of malignant neoplasm of breast Sibling Family history of malignant neoplasm of breast Patient's sister is in good health Family history of malignant neoplasm of breast in first degree relative Father Family history of cardiovascular disease Family history of arthritis Malignant neoplasm of prostate Family history of congestive heart failure Mother Family history of malignant neoplasm Family history of emphysema Hypertension Family history of arthritis Family history of chronic obstructive pulmonary disease Social History Social History Smoking status: Never smoker Alcohol intake: never Substance use: never Do You Feel Safe in your Home?: Yes Lack of Transportation: No Lack of Food: Never True Current Housing: I Have Housing Concerned About Future Housing: No Difficulty Paying Gas/Electric Bills: No Difficulty Paying for Meds: No Currently Unemployed: No Education: High School Diploma/GED Difficulty w/ Childcare or Family Care: No Spiritual care concerns: No Comments At time of signature, I have reviewed and agree with nursing past medical, surgical, social and family history unless otherwise noted. Please see nursing chart for further information. There is no relevant family history pertinent to the presenting complaint Exam Narrative: GENERAL: Well-appearing, well-nourished, and in no acute distress. HEAD: Normocephalic, atraumatic. Left facial droop due to previous Berg's Palsy EYES: EOMI. No redness or drainage. Conjunctivae normal. ENT: Mucous membranes pink and moist. NECK: Normal AROM. CHEST: No respiratory distress. Clear to auscultation. HEART: Regular rate and rhythm. No murmur appreciated. ABDOMEN: Soft, nontender, nondistended, normal active bowel sounds. SKIN: Warm, dry, no rash. Capillary refill normal. Normal skin turgor. NEURO: No focal deficits. Alert and oriented x3. Gait steady. PSYCH: Normal affect. No signs of depression or anxiety. Course Course Level of Care: Express Care Visit Vital Signs Vital signs: Vital Signs Temperature 99.1 F 06/04/24 15:28 Pulse Rate 65 06/04/24 15:28 Respiratory Rate 18 06/04/24 15:28 Blood Pressure 146/75 H 06/04/24 15:28 Pulse Oximetry 98 06/04/24 15:28 Oxygen Delivery Room Air 06/04/24 15:28 Temperature 99.1 F 06/04/24 15:28 Pulse Rate 65 06/04/24 15:28 Respiratory Rate 18 06/04/24 15:28 Blood Pressure 146/75 H 06/04/24 15:28 Pulse Oximetry 98 06/04/24 15:28 Oxygen Delivery Room Air 06/04/24 15:28 Reviewed MDM - Female Genitourinary MDM Narrative Medical decision making narrative: Urinalysis is consistent with UTI. Patient will be started on a course of Keflex. Culture pending. Anticipatory guidance given Differential Diagnosis Differential diagnosis: Likely urinary tract infection, vaginitis, cystitis and other (Pyelonephritis) Lab Data Attestation: I reviewed the patient's lab results. Labs: Lab Results 06/04/24 Range/Units 15:37 POC Urine Color Radha POC Urine Clarity Cloudy POC Urine pH 7.5 POC Ur Specif [place] 1.020 POC Urine Protein 2+ (Negative) POC Ur Glucose (UA) Negative (Negative) POC Urine Ketones Trace (Negative) POC Urine Blood 2+ (Negative) POC Urine Nitrite Negative (Negative) POC Urine Bilirubin 1+ (Negative) POC Urine Urobilinogen 1.0 POC U Leukocyte Esteras 1+ (Negative) Critical Care Time Critical Care Time Critical Care Time: No Discharge Plan Discharge Clinical Impression: UTI (urinary tract infection) Patient Disposition: Home, Self-Care Condition: Stable Instructions: Antibiotic Form, Urinary Tract Infection in Women (DC) Additional Instructions: Your urine shows infection today. Take Keflex as prescribed until gone. Your urine will be sent of for a culture to identify what type of bacteria is causing your infection. If the culture shows that your medication will not get rid of your infection, you will be notified and a new antibiotic will be called in for you. If your symptoms worsen to include fever, sweats, chills, nausea, vomiting, severe abdominal or back pain, please go to the ER for further evaluation. You may take some irro-tak-[id number] medications such as Cystex, Urostat or Azo to help with your urinary discomfort Your blood pressure was elevated above 120/80 today at Urgent Care. This puts you above the threshold for follow up. Please schedule a followup visit with your personal physician as soon as possible, for further evaluation and treatment. Even blood pressure exceeding 120/80 may indicate pre-hypertension. Prescriptions: New cephalexin 500 mg capsule 500 mg PO Q6H 7 Days Qty: 28 0RF No Action levothyroxine [Synthroid] 100 mcg tablet 112 mcg PO DAILY trazodone 50 mg tablet 100 mg PO HS amlodipine 10 mg tablet 5 mg PO DAILY 30 Days Qty: 15 0RF hydrochlorothiazide 50 mg tablet 50 mg PO DAILY Qty: 90 2RF carbamazepine 200 mg Capsule, Er Multiphase 12 Hr 400 mg PO Q12H mirabegron [Myrbetriq] 25 mg Tablet Extended Release 24 Hr 25 mg PO DAILY duloxetine 30 mg capsule,delayed release(DR/EC) 60 mg PO HS Viberzi 100 mg tablet 100 mg PO BID Rx Instructions: must administer with a meal/food ibandronate 150 mg tablet 150 mg PO MONTHLY fluticasone propionate [Flonase Allergy Relief] 50 mcg/actuation spray,suspension 1 spray intranasal Q12H Qty: 16 0RF Rx Instructions: administer into each nostril baclofen 10 mg tablet 10 mg PO HS celecoxib [Celebrex] 200 mg capsule 200 mg PO DAILY clobetasol 0.05 % ointment 1 applic TOPICAL BID Rx Instructions: To left face epinephrine 0.1 mg/mL syringe 0.1 mg IM Q10M PRN (Reason: Allergic Reaction) labetalol 200 mg tablet 200 mg PO Q12H esomeprazole magnesium [Nexium] 40 mg capsule,delayed release(DR/EC) 40 mg PO BID albuterol sulfate [ProAir HFA] 90 mcg/actuation HFA aerosol inhaler 2 puff INHALATION Q4H PRN (Reason: Shortness Of Breath Or Wheezing) tacrolimus 0.1 % ointment 1 applic TOPICAL BID Rx Instructions: Apply to per[place] hydralazine 50 mg tablet See Rx Instructions .ROUTE .COMPLEX Qty: 270 2RF Dose Instruction: TAKE 1 TABLET 3 TIMES A DAY Rx Instructions: TAKE 1 TABLET 3 TIMES A DAY Follow-up/Referrals: Carson,DO John [Primary Care Provider] - Time of Disposition: 15:49
== END 2024-06-04 16:00 | disposition home or self-care (01) ==
PROVIDERS: Emergency Provider Nurse Practitioner; PCP Student in an Organized Health Care Education/Training Program
DX: N39.0 Urinary tract infection, site not specified (principal); I10 Essential (primary) hypertension
CPT/HCPCS: 81003; 87086; 99213; G0463

== ENCOUNTER 2025-01-20 16:00 | Emergency (ER) | payer BC, SELFPAY ==
--- NOTE | ~2025-01-20 | CT_ITS ---
CT facial bones wo con Ordering provider: Chadwick Langston APRN History: . s/p fall . Comparison: None. Technique: Thin slice axial CT of the facial bones was performed without contrast. Coronal and sagit yomaira reformatted images were also obtained. . Automated exposure control and iterative reconstruction technique were employed. The dose-length product was 278.53 mGy-cm. FINDINGS: PARANASAL SINUSES: Minimal bilateral ethmoid sinus disease. Bilateral maxillary sinus disease. Otherw ise, Well aerated. BONES: No facial fracture including no nasal bone fracture. ORBITS AND SUPERFICIAL SOFT TISSUES: The optic globes and orbits are normal. Scalp hematoma is seen a nteriorly. The superficial soft tissues are normal. Right parapharyngeal lymph nodes enlargement seen with the largest measures 1.4 cm. VISUALIZED MASTOIDS: Well aerated. LIMITED VISUALIZED BRAIN PARENCHYMA: Normal. IMPRESSION: No facial fracture. Reviewed, dictated and finalized at location A. IMPRESSION: No facial fracture.
--- NOTE | ~2025-01-20 | CT_ITS ---
CT brain wo con Ordering provider: Chadwick Langston APRN History: 64 years Female with . s/p fall . Comparison: None. Technique: CT of the head without contrast. Radiation reduction technique utilized. The dose-length p roduct was 605.33 mGy-cm. FINDINGS: BRAIN PARENCHYMA AND CSF SPACES: No midline shift, mass effect or hemorrhage. The brain parenchyma a nd CSF spaces are otherwise normal. VISUALIZED PARANASAL SINUSES: Well aerated. MASTOIDS: Well aerated. BONES: The bones appear intact. SOFT TISSUES: Visualized nasopharynx is normal. Superficial soft tissues are normal. IMPRESSION: No acute intracranial findings. Reviewed, dictated and finalized at location A.
--- OUTSIDE RECORDS SUMMARY | 2025-01-20 16:03 | XMS_ITS | Encounter Summary ---
Author Organization [facility] Healthcare Address [address] [place] [address] Care Team Providers Care Business And Financial Counsel Name Role Phone Pratibha Jolly MD Primary Care Provider + Asia Tafoya MD Unavailable John Byrd DO Primary Care Provide r Encounter Details Date Type Department Care Team (Late st Contact Info) Description 03/26/2021 Telephone [facility] [address] [facility] 1st [place] [address] Ami Narvaez, RN Social History Tobacco Use Types Packs/Day Years Used Date Smoking Tobacco: Never Smokeless Tobacco: Never Alcohol Use Standard Drinks/Week Comments No 0 (1 standard drink = 0.6 oz pur e alcohol) rarely AUDIT-C Answer Date Recorded Q1: How often do you have a drink containing alc ohol? 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 Procedure Date, Time, Location 03/28/2021 0800 ??? Arrival 15 minutes prior to appointment yes Discharge transportation is needed yes ??? Oral intake: [x] Able to eat, drink, and take medications as normal. [] No solid food for 6 hours; No liquids for 3 hours; Take medications with sips of water. ??? Blood thinner: [x] Notify the office immediately if taking a new blood thinner [] Notify the office immediately if blood thinner: was not stopped on date: ??? Lab work [] Lab work is required prior to the procedure. Please arrive 1 hour early to have the following test: [] CBC [] PT/INR ??? Notify the office immediately if: a. In the last 10 days have you had any respiratory symptoms including cough, shortness of breath/trouble breathing, fever, sudden loss of taste or smell, sore throat, or body aches? b. Any antibiotics in the last 7 days? c. Have received a Covid-19 vaccine in the last 2 weeks or plan to receive a Covid-19 vaccine in the next 2 weeks? d. Are currently being tested for Covid-19? e. Have tested positive for Covid-19 within the last 14 days? f. Have had close contact with anyone confirmed or suspected Covid-19 in the past 2 weeks? documented in this encounter Plan of Treatment Not on file documented as of this encounter Goals Goal Patient Goal Type Associated Problems Recent Progress Patient-Stated? Author CCM Chronic Pain Care Plan Chronic Care Management On track(2024 7:58 AM CDT) No Renetta Grimm, LAISHA Note: Problem: Chronic Pain Goals: 1. Minimize further functional decline 2. Maximize quality of life 3. Control pain Strategies: - Activity/exercise program recommendation - Conservative stepwise pain medicine strategy with multi-disciplinary approach - Recommend healthy lifestyle strategies and compensatory methods as needed Reduce the likelihood of falling Lifestyle Improving( 7:58 AM CDT) No Renetta Grimm, LAISHA Note: Below are four things you can do to prevent falls: Begin an exercise program to improve your leg strength & balance Ask your doctor or pharmacist to review your medicines Get annual eye check-ups & update your eyeglasses Make your home safer by: Removing clutter & tripping hazards Putting railings on all stairs & adding grab bars in the bathroom Having good lighting, especially on stairs Contact your local community or [facility] for information on exercise, fall prevention programs, or options for improving home safety. documented as of this encounter Visit Diagnoses Not on filedocumented in this encounter Care Teams Business And Financial Counsel Relationship Specialty Start Date End Date Pratibha Jolly MD PCP - General Internal Medicine 02/17/18 08/17/22 John Byrd DO [address] [place] [id number] PCP - General Family Medicine 08/18/22 Asia Tafoya MD Consulting Physician Pain Management 01/05/22 documented as of this encounter
--- OUTSIDE RECORDS SUMMARY | 2025-01-20 16:03 | XMS_ITS | Clinical Summary ---
Author Organization [facility] Address [address] [place] [address] Phone Care Team Providers Care Crate Icer Name Role Phone Unavailable Primary Care Provider Unavailabl e Allergies Active Allergy Reactions Criticality Noted Date Comments Amoxicillin Hives High 06/04/2024 Amoxicillin-Pot Clavulanate Hives High 03/18/2022 Fruit Extracts Swelling Low 06/04/2024 LIPS Hymenoptera Allergenic Extract Swelling Medium 09/03/2014 Kiwi Hives,Swelling High 01/03/2015 Lip swelling Other reaction(s): Hives Lip swelling Levopropoxyphene Napsylate Hives High 03/18/2022 Mariposa Swelling High 01/03/2015 Lip swelling Oseltamivir Hives,Itching,Oth er (See Comments) High 08/29/2019 Other reaction(s): Hives Propoxyphene Nausea and Vomiting,Unknown Low 12/20/2020 Propoxyphene-Acetaminophe n Nausea and Vomiting Low 08/19/2020 Topiramate Hives,Other (See Comments) High 08/21/2015 Constipation & Insomnia Other reaction(s): Hives Constipation & Insomnia Constipation & Insomnia Other reaction(s): Hives Tramadol Dizziness,Other (See Comments) Low 10/07/2020 Venom-Wasp Protein Swelling Medium 09/03/2014 Medications Fish Oil-Montrose-3 Fatty Acids 300-500 mg Capsule Take 500 mg by mouth daily. Active ondansetron (ZOFRAN ODT) 4 mg Tablet, Rapid Dissolve 12/31/19 24 Active tacrolimus (PROTOPIC) 0.1 % Ointment Active traZODone (DESYREL) 50 mg tablet TAKE 2 TABLETS EVERY NIGHT AT BEDTIME 11/03/19 25 Active amLODIPine (NORVASC) 5 mg tablet Take 5 mg by mouth daily. 11/15/19 23 Active aspirin (GERDA CHEWABLE) 81 mg Tablet, Chewable Take 81 mg by mouth daily. 09/01/19 25 026 Active atorvastatin (LIPITOR) 40 mg tablet Take 40 mg by mouth daily at bedtime. 08/31/19 25 Active baclofen (LIORESAL) 10 mg tablet Take 1 Tablet by mouth daily at bedtime. 11/24/19 24 Active calcium as CARBONATE-gema min D3 (OS-JENN 500+D) 500 mg-5 mcg (200 unit) tablet Take 1 Tablet by mouth. Active carBAMazepine (CARBATROL) 200 mg Extended Release 12 hour capsule Take 400 mg by mouth 2 times daily. 11/02/19 25 Active celecoxib (CeleBREX) 200 mg capsule Take 200 mg by mouth daily. Active DULoxetine (CYMBALTA) 30 mg Capsule, Delayed Release(E.C.) Take 60 mg by mouth daily. 02/20/20 22 Active esomeprazole (NexIUM) 40 mg Capsule, Delayed Release(E.C.) Take 20 mg by mouth 2 times daily. 11/01/19 25 Active ibandronate (BONIVA) 150 mg tablet Take 150 mg by mouth every 30 days. 12/24/19 24 Active labetaloL (NORMODYNE) 200 mg tablet Take 200 mg by mouth 2 times daily. 07/24/19 25 Active levothyroxine 100 mcg tablet Take 112 mcg by mouth daily in the morning. Active mirabegron (MYRBETRIQ) 50 mg Extended Release 24 hour tablet Take 50 mg by mouth daily. 11/03/19 25 Active semaglutide, weight loss, (WEGOVY) 0.25 mg/0.5 mL Pen InjectorIndica tions:Spinal cord infarction (CMS/HCC),Clas s 2 obesity,BMI 39.0-39.9,adul t Inject 0.5 mL (0.25 mg) by subcutaneous injection every 7 days. 2 mL 2 01/11/20 25 Active semaglutide, weight loss, (Wegovy) 0.25 mg/0.5 mL Pen Injector INJECT 0.25 MG INTO THE SKIN ONCE A WEEK. INDICATIONS: WEIGHT LOSS 11/05/19 24 025 Discontinued Active Problems Problem Noted Date Diagnosed Date Incontinence of feces 11/02/2024 Spinal cord infarction 11/02/2024 Urinary incontinence 08/26/2024 Tendinitis of right rotator cuff 08/09/2024 Tendinitis of left rotator cuff 10/18/2023 GERD (gastroesophageal reflux disease) Obstructive sleep apnea syndrome 12/18/2022 Hyperlipidemia 07/17/2022 Irritable bowel syndrome 07/17/2022 Osteoporosis 07/17/2022 Osteoarthritis of knee 11/20/2021 Trochanteric bursitis of both hips 11/20/2021 PVD (posterior vitreous detachment), bilateral 0 11/10/2021 Overview (01/10/2025): Last Assessment & Plan: Urgent visit today for new floater right eye (OD) X 2 days -retina flat and attached both eyes (OU) -pt ed s/s retinal detachment (RD); RTC nishant if noted -otherwise rtc as scheduled with RW Pseudophakia of both eyes 08/10/2020 Overview (01/10/2025): Last Assessment & Plan: POW#3 sp phaco/IOL right eye (OD); Doing well; cont pred/ket per taper schedule right eye (OD) left eye (OS) with mild PCO; follow Atypical face pain 02/09/2020 Moderate major depression 10/30/2019 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 MRI of the brain, Chuck level, Lyme antibody titers have all been unrevealing. Supportive care is appropriate at this time. 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 cpm with celluvisc 5 times per day. Add pm ramone. Keep f/u with Dr. Garcia as scheduled. 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 01/03/2015 Herniation of intervertebral disc of cervical re gion 08/16/2014 Hypertension 09/15/2001 Hypothyroidism 06/07/2001 Asthma 06/10/2000 Encounters Date Type Department Care Team Description 01/16/2025 External Device Data [facility] ABSTRACTION Provider, Abstract 01/16/2025 External Device Data [facility] ABSTRACTION Provider, Abstract 01/16/2025 External Device Data [facility] ABSTRACTION Provider, Abstract 01/10/2025 2:30 PM CDT Office Visit [facility] - [address] [id number] Tiffanie Bowers MD Berry, Kym Tomas RD Spinal cord infarction (CMS/HCC) (Primary Dx); Class 2 obesity; BMI 39.0-39.9,adult; Primary hypertension; Osteoarthritis of lumbar spine, unspecified spinal osteoarthritis complication status; Irritable bowel syndrome with diarrhea; Primary osteoarthritis of knee, unspecified laterality from Last 3 Months Social History Tobacco Use Types Packs/Day Years Used Date Smoking Tobacco: Never Assessed Comments Unknown Sex and Gender Information Value Date Recorded Sex Assigned at Not on file Legal Sex Female 10:36 AM CDT Gender Identity Not on file Sexual Orientation Not on file Last Filed Vital Signs Vital Sign Reading Time Taken Comments Blood Pressure 134/82 01/10/2025 2:32 PM CDT Pulse 78 01/10/2025 2:32 PM CDT Temperature - - Respiratory Rate - - Oxygen Saturation 98% 01/10/2025 2:32 PM CDT Inhaled Oxygen Concentration - - Weight 87.7 kg (193 lb 6.4 oz) 01/10/2025 2:32 P M CDT Height 148.6 cm (4' 10.5) 01/10/2025 2:32 PM CD T Body Mass Index 39.73 01/10/2025 2:32 PM CDT Plan of Treatment Upcoming Encounters Date Type Department Care Team (Late st Contact Info) Description 04/16/2025 2:00 PM CDT Video Visit [facility] - [facility] [address] [facility], [facility] [address] [place] [address] [place] [address] [place] [place] [address] Health Maintenance Due Date Last Done Comments Pre-Diabetes and Diabetes Screening 1960 COLORECTAL SCREENING 2005 Colorectal Cancer Screening 2005 FIT-DNA Q 3 years 2005 FIT/FOBT Q 1 year 2005 Flex Sig/CT Colonography Q 5 years 2005 RSV VACCINE (60+ or ) (1 - Risk 60-74 years 1-dose series) 2020 DTAP/TDAP/TD VACCINES (2 - T d or Tdap) 07/17/2024 07/17/2014 BREAST CANCER SCREENING 09/19/2024 09/20/19 24, 09/20/2023, 06/05/2022, Additional history exists INFLUENZA VACCINE (#1) 2025 , 05/06/2021, 05/01/2020, Additional history exists ZOSTER VACCINE Completed 10/11/2018, 10/2018, 05/01/2018 COVID-19 Vaccine Completed 04/24/2024, , 05/15/2022, Additional history exists Insurance FEDERAL
--- OUTSIDE RECORDS SUMMARY | 2025-01-20 16:03 | XMS_ITS | Encounter Summary ---
Author Organization [facility] Address [facility] [place] [address] Care Team Providers Care Financial Business Analyst Name Role Phone John Byrd DO Primary Care Provider + Encounter Details Date Type Department Care Team (Late st Contact Info) Description 07/30/2023 MyChart Message Enc [facility] Family Medicine - [place] [address] [facility], [address] [place] [address] [place] [address] [place] [address] counseling options Social History Tobacco Use Types Packs/Day Years Used Date Smoking Tobacco: Never Passive Smoke Exposure: Never Smokeless Tobacco: Never Alcohol Use Standard Drinks/Week Comments Not Currently 0 (1 standard drink = 0.6 oz pur e alcohol) rarely PHQ-2 Answer Date Recorded Patient Health Questionnaire-2 Score 4 07/17/2022 Comments No Sex and Gender Information Value Date Recorded Sex Assigned at Female 08/22/2024 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 Legal Sex Female 7:06 PM CDT Gender Identity Female 09/19/2024 11:04 AM CDT Sexual Orientation Not on file documented as of this encounter Plan of Treatment Upcoming Encounters Date Type Department Care Team (Latest Contact Info) Description 01/23/2025 11:40 AM CDT Appointment [facility] Mammography [address] [place] [address] John Byrd DO [address] [place] [address] 02/09/2025 11:20 AM CDT Office Visit [facility] Family & Internal Medicine - [place] [address] [place] [address] John Byrd DO [address] [place] [address] 03/28/2025 3:30 PM CDT Hospital Encounter [facility] [place] [address] Ed Mi MD [address] [address] 03/28/2025 3:30 PM CDT - 03/28/2025 4:00 PM CDT Surgery [facility] [place] Endo/[place] [address] Ed Mi MD [address] [address] COLONOSCOPY DIAGNOSTIC WITH/WITHOUT SPECIMEN BRUSH/WASH Scheduled Procedures Name Priority Associated Diagnoses Date/Ti me COLONOSCOPY DIAGNOSTIC WITH/WITHOUT SPECIMEN BRUSH/WASH Incontinence of feces, unspecified fecal incontinence type Diarrhea, unspecified type History of adenomatous and serrated colon polyps 03/28/2025 3:30 PM CDT documented as of this encounter Visit Diagnoses Not on filedocumented in this encounter Care Teams Financial Business Analyst Relationship Specialty Start Date End Date John Byrd DO [address] [place] [address] PCP - General FAMILY PRACTICE 07/17/22 documented as of this encounter
--- OUTSIDE RECORDS SUMMARY | 2025-01-20 16:03 | XMS_ITS | Encounter Summary ---
Author Organization [facility] Healthcare Address [address] [place] [address] Care Team Providers Care Coffee Shop Attendant Name Role Phone Pratibha Jolly MD Primary Care Provider + Asia Tafoya MD Unavailable John Byrd DO Primary Care Provide r Encounter Details Date Type Department Care Team (Late st Contact Info) Description 06/07/2019 Telephone [facility] [address] [facility] 1st [place] [address] Venice Echavarria RN Social History Tobacco Use Types Packs/Day Years Used Date Smoking Tobacco: Never Smokeless Tobacco: Never Alcohol Use Standard Drinks/Week Comments No 0 (1 standard drink = 0.6 oz pur e alcohol) rarely Comments No Sex and Gender Information Value Date Recorded Sex Assigned at Not on file Legal Sex Female 10:45 AM 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
--- OUTSIDE RECORDS SUMMARY | 2025-01-20 16:03 | XMS_ITS | Clinical Summary ---
Author Organization [facility] Address [address] [place] [address] Care Team Providers Care Marketing Intelligence Manager Name Role Phone Asia Tafoya MD Unavailable John Byrd DO Primary Care Provide r Allergies Active Allergy Reactions Criticality Noted Date Comments Amoxicillin-Pot Clavulanate Hives Medium 03/18/2022 Propoxyphene-Acetaminophen Vomiting Low Flavoring Agent (Bulk) Hives Medium 03/18/2022 Kiwi Swelling High 01/03/2015 Lip swelling Kiwi (Actinidia Chinensis) Hives,Swelling High 01/03 Lip swelling Other reaction(s): Hives Levopropoxyphene Napsylate Hives Medium 2 Black Swelling High 01/03/2015 Lip swelling Black Flavor Hives Medium 03/18/2022 Oseltamivir Hives,Itching,Other (See comments) Medium 08/29/2019 Other reaction(s): Hives Propoxyphene Unknown 03/12/2022 Topiramate Other (See comments),Hives Medium 08/21/2015 Constipation & Insomnia Constipation & Insomnia Other reaction(s): Hives Tramadol Dizziness,Other (See comments) Low 10/07/2020 Allergen Jo-Tnchi-Wrlu Protein Swelling Medium 09/03/2014 Medications PROAIR HFA 90 mcg/actuation inhaler Inhale 2 puffs every 6 (six) hours as needed for wheezing (asthma) 12/12/19 18 Active calcium carbonate-vitamin D3 1,250mg (500mg elemental) - 5 mcg (200 units) per tablet Take 1 tablet by mouth daily after lunch Active celecoxib (CeleBREX) 200 mg capsule Take 1 capsule (200 mg total) by mouth nightly Active esomeprazole DR (NexIUM) 40 mg capsuleIndications :Mucositis Prophylaxis Take 1 capsule (40 mg total) by mouth 2 (two) times a day Active ibandronate (BONIVA) 150 mg tabletIndications: Post-Menopausal Osteoporosis Take 1 tablet (150 mg total) by mouth every 30 (thirty) days Active labetalol (NORMODYNE,TRANDAT E) 200 mg tabletIndications: hypertension Take 1 tablet (200 mg total) by mouth 2 (two) times a day Active levothyroxine (SYNTHROID) 100 mcg tablet Take 112 mcg by mouth sea foam kiss maker before breakfast Active diclofenac sodium (VOLTAREN) 1 % gel Apply 1 g topically 2 (two) times a day as needed (R knee) 07/10/20 19 Active traZODone (DESYREL) 50 mg tablet Take 1 tablet (50 mg total) by mouth nightly 11/23/[address] (CYMBALTA) 30 mg capsule Take 2 capsules (60 mg total) by mouth daily 11/21/19 22 Active hydrALAZINE (APRESOLINE) 50 mg tablet Take 1 tablet (50 mg total) by mouth 3 (three) times a day 02/28/20 22 Active hydroCHLOROthiazid e (HYDRODIURIL) 50 mg tablet Take 1 tablet (50 mg total) by mouth daily Active amLODIPine (NORVASC) 5 mg tablet Take 1 tablet (5 mg total) by mouth daily 11/15/19 23 Active Wegovy 0.25 mg/0.5 mL auto-injector Inject 0.25 mg under the skin once a week 11/05/19 24 Active ondansetron ODT (ZOFRAN-ODT) 4 mg disintegrating tablet Take 1 tablet (4 mg total) by mouth every 8 (eight) hours as needed 12/31/19 24 Active acetaminophen 500 mg capsule Take 2 capsules (1,000 mg total) by mouth every 6 (six) hours 08/31/19 25 Active atorvastatin (LIPITOR) 40 mg tablet Take 1 tablet (40 mg total) by mouth nightly 08/31/19 25 Active aspirin 81 mg chewable tablet Take 1 tablet (81 mg total) by mouth daily 30 tablet 11 09/01/19 25 026 Active senna-docusate (PERICOLACE) 8.6-50 mg Take 1 tablet by mouth 2 (two) times a day Hold for diarrhea 08/31/19 25 Active lidocaine (LIDODERM) 5 % Place 1 patch on the skin daily Remove & discard patch within 12 hours or as directed by . 09/01/19 25 Active carBAMazepine ER (CARBATROL) 200 mg 12 hr capsule TAKE 2 CAPSULES TWICE DAILY, MAY TAKE AN EXTRA CAPSULE ONCE DAILY NEEDED 400 capsule 11/02/19 25 Active baclofen (LIORESAL) 10 mg tablet TAKE 1 AND 1/2 TABLETS TWICE DAILY 270 tablet 1 11/02/19 25 Active Additional Information Patient taking differently: 10 mg oral Nightly, Reported on 01/04/2025 mirabegron ER (MYRBETRIQ) 50 mg tablet extended release 24 hr Take 1 tablet (50 mg total) by mouth daily 11/04/19 25 Active eluxadoline (Viberzi) 100 mg tablet Take 1 tablet (100 mg total) by mouth as needed Active nystatin powder Apply topically 4 (four) times a day Active docosahexaenoic acid/epa (FISH OIL ORAL) Take by mouth Active EPINEPHRINESNAP INJ Inject as directed Active Active Problems Problem Noted Date Diagnosed Date Constipation 08/30/2024 Assessment & Plan (09/01/2024 9:28 AM INSURANCE ADMINISTRATIVE ASSISTANT): Patient has not been able to have a BM for the past several day -> Miralax, Senna, Mag citrate x1 given -Lactulose 08/30 --> multiple bowel movements subsequently -RESOLVED Spinal cord stroke 08/26/2024 Assessment & Plan (09/01/2024 9:29 AM INSURANCE ADMINISTRATIVE ASSISTANT): Presented to OSH with acute low back pain, weakness in bilateral legs, incontinence, and poor rectal tone initially concerning for cauda equina syndrome. - MRI L spine without evidence of cauda equina syndrome - MRI T/C spine with potential cord signal change at the level of the conus followed by dedicated MRI of the T-spine showing two areas of diffusion restriction concerning for infarct - Neurosurgery consulted, initially recommended dexamethasone, but subsequently signed off given results as above - Neurology consulted -- overall concern for infarct > myelitis, will f/u outpatient for longitudinal response, no LP needed curently - MOG antibody ordered - TTE showed Ef of 71% with left ventricular diastolic parameters consistent with Grade I diastolic dysfunction. No left ventricular thrombus visualized - Cardiology asked for a repeat TTE on 08/29 and was not diagnostic for HCM; does have features borderline with HCM and will need clincial correlation and 1 year follow up TTE to see if there have been any changes - Increased atorvastatin to 40mg - Start asa 81mg daily - SMART consult - Stroke clinic referral at d/c - PT/OT rec IPR Incontinence of urine 08/26/2024 Assessment & Plan (08/28/2024 6:12 PM INSURANCE ADMINISTRATIVE ASSISTANT): - Hole home mirabegron while galan in place Depression, major, recurrent 08/26/2024 Assessment & Plan (08/26/2024 2:31 AM INSURANCE ADMINISTRATIVE ASSISTANT): Cont cymbalta and trazodone Posterior capsular opacification, right eye 08/0 11/2021 PVD (posterior vitreous detachment), bilateral 0 11/10/2021 Assessment & Plan (11/10/2021 2:44 PM CDT): Urgent visit today for new floater right eye (OD) X 2 days -retina flat and attached both eyes (OU) -pt ed s/s retinal detachment (RD); RTC nishant if noted -otherwise rtc as scheduled with RW Pseudophakia of both eyes 08/10/2020 Assessment & Plan (11/10/2021 2:45 PM CDT): POW#3 sp phaco/IOL right eye (OD); Doing well; cont pred/ket per taper schedule right eye (OD) left eye (OS) with mild PCO; follow Medication monitoring encounter 04/08/2020 Assessment & Plan (04/08/2020 10:11 AM CDT): I will obtain a CBC and electrolyte panel to screen for leukopenia and hyponatremia, both of which are potential complications of continued carbamazepine usage. Atypical face pain 02/09/2020 Assessment & Plan (03/31/2021 10:13 AM CDT): Patient continues on carbamazepine 200 mg t.i.d. at this time. She reports a recent exacerbation in facial pain is interested in augmentation of her treatment. Gone laboratory demonstrating normal sodium level. I will increase her carbamazepine to 200 mg q.i.d. an effort to further reduce facial pain. She will follow-up in 6 months time for reassessment. Assessment & Plan (10/07/2020 10:13 AM CDT): Since last being seen 6 months ago, patient had exacerbation of her left rebekah facial atypical face pain. Carbamazepine was increased to 200 mg t.i.d. from 100 mg t.i.d. with some interval improvement. She still says she notices the pain to return when the medication effect or wearing off. I will maintain her carbamazepine to 200 mg t.i.d.. She has had a recent CBC which is unrevealing upon personal review. I will obtain electrolyte panel to screen for potential hyponatremia associated with continued carbamazepine dosing. I will see her back in office in 6 months for reassessment. Assessment & Plan (04/08/2020 10:10 AM CDT): Patient has history of left-sided atypical facial pain and has received symptomatic improvement with carbamazepine 100 mg t.i.d.. MRI brain with and without contrast, Chuck level, and Lyme antibody titers are all normal. I will continue her carbamazepine 100 mg t.i.d. for neuropathic pain relief, and I will obtain a CBC and electrolyte panel to screen for neutropenia and hyponatremia which can be associated with continued carbamazepine usage. I will plan on seeing her back in 6 months. Assessment & Plan (02/09/2020 5:05 PM CDT): Patient has a history of left facial pain involving all 3 branches of the trigeminal nerve beginning in 2014 which today have been unresponsive to trials of gabapentin and pregabalin. Her onset of left facial pain which predated 2 years earlier with the abrupt onset of a left facial motor nerve paralysis bring into question the possibility of conditions producing multiple cranial neuropathies. Trigeminal neuralgia is a possibility but in concert with her antecedent facial nerve palsy, alternate etiologies must be excluded. For pain control I will place her on a trial of carbamazepine 100 mg t.i.d., and I have asked that she reduce her pregabalin by 1 tab per day each week until weaning herself completely off of the in 5 weeks time. She within remain on the carbamazepine 100 mg t.i.d. for face pain, and I will plan on seeing her back in 2 months time for reassessment. In the interim I will check a MRI of the brain with and without contrast to exclude current structural aberration, and I will also check angiotensin-converting enzyme and Lyme antibody titer levels to screen for sarcoidosis and Lyme disease, respectively. 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 MRI of the brain, Chuck level, Lyme antibody titers have all been unrevealing. Supportive care is appropriate at this time. Assessment & Plan (02/09/2020 5:01 PM CDT): Patient has a history he from 2015 of the left facial nerve palsy. She has undergone trials of medication including steroids and antiviral therapy at the time of onset and more recent a rehabilitative course of treatment without much resolution. In 2017 she started to develop the left atypical face pain, which brings in the possibility almost of bulbar pathologies which could affect multiple cranial nerves. Assessment & Plan (01/10/2019 9:19 AM CDT): Longstanding left bells palsy and left hemifacial spasm, treated by Dr. Garcia with botox injections. 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 cpm with celluvisc 5 times per day. Add pm ramone. Keep f/u with Dr. Gacria as scheduled. Exposure keratopathy, left 01/10/2019 Assessment & Plan (01/10/2019 9:21 AM CDT): Very mild. Minimal impact on vision today. 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 She recently has had an exacerbation of lower cervical and upper thoracic pain. She currently exhibits normal neurological examination with no evidence of radicular sensory loss or motor weakness. I will place her through a course of physical therapy with follow-up in Neurology Clinic thereafter. Spondylosis of cervical spine without myelopathy 04/16/2015 Hemifacial spasm of left side of face 03/14/2015 Auriculotemporal syndrome 01/03/2015 Dizziness 01/03/2015 Hypothyroidism, unspecified 01/03/2015 Assessment & Plan (08/28/2024 6:11 PM INSURANCE ADMINISTRATIVE ASSISTANT): Continue home synthroid Facial pain 12/04/2014 Decreased thyroid stimulating hormone (TSH) leve l 09/03/2014 Hypertension 09/03/2014 Assessment & Plan (08/26/2024 2:09 AM INSURANCE ADMINISTRATIVE ASSISTANT): Home medication are 5 mg amlodipine, 50 mg HCTZ at night, 50 mg hydralazine t.i.d., 200 mg labetalol b.i.d. We will continue all home blood pressure medications Herniation of intervertebral disc of cervical re gion 08/16/2014 Resolved Problems Problem Noted Date Diagnosed Date Resolved Date Osteoporosis 08/26/2024 08/28/2024 Assessment & Plan (08/26/2024 2:07 AM INSURANCE ADMINISTRATIVE ASSISTANT): Take ibanddronate every month, hold during admission Lichen planus 08/26/2024 08/26/2024 Assessment & Plan (08/26/2024 2:08 AM INSURANCE ADMINISTRATIVE ASSISTANT): Monitor, will hold vario IBS (irritable bowel syndrome) 08/26/2024 08/28/2024 Assessment & Plan (08/26/2024 2:17 AM INSURANCE ADMINISTRATIVE ASSISTANT): On viberzi will hold during admission Left posterior capsular opacification 01/10/2019 08/10/2020 Assessment & Plan (01/10/2019 9:18 AM CDT): With complaints of glare and decreased VA OS. Schedule for yag cap consult with RHW. Wait on SRx until after yag. Age-related nuclear cataract of right eye 01/10/2019 10/22/2021 Assessment & Plan (01/10/2019 9:19 AM CDT): Approaching vis sig. Refractive shift today. Surgery not yet indicated. SRx after yag. 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 Asthma 06/13/2019 Encounters Date Type Department Care Team Description 01/18/2025 9:00 AM CDT Procedure visit [facility] [address] [facility] 6th [place] [address] Nik Garcia MD Facial nerve spasm (Primary Dx) 01/17/2025 11:40 AM CDT - 01/17/2025 11:59 PM CDT Hospital Encounter [facility] Neuro Interventional Radiology [address] [place] [address] Spinal cord stroke (HCC); Leg weakness, bilateral Discharge Disposition: Discharge to home or self care 01/16/2025 Telephone [facility] Cardiology [address] [facility] 8th [place] [address] [place] [address] Tip Holley MD 01/16/2025 Telephone [facility] Interventional Radiology [address] [place] [address] Gisel Velasquez, LAISHA 01/15/2025 3:15 PM CDT Therapy [facility] - [place] [address] [place] [address] Riccardo Juarez, PT Spinal cord stroke (HCC) (Primary Dx) 01/15/2025 Telephone [facility] Interventional Radiology [address] [place] [address] Gisel Velasquez, LAISHA 01/11/2025 10:32 AM CDT - 01/11/2025 11:59 PM CDT Hospital Encounter [facility] [address] [place] [id number] Spinal cord stroke (HCC); Atypical face pain Discharge Disposition: Discharge to home or self care 01/09/2025 3:15 PM CDT Therapy [facility] - [place] [address] [place] [address] Juliet Olivares, PT Spinal cord stroke (HCC) (Primary Dx) 01/09/2025 Telephone [facility] Interventional [facility]iology [address] [place] [address] Gisel Velasquez RN 01/04/2025 9:42 AM CDT - 01/04/2025 11:59 PM CDT Hospital Encounter [facility] [address] [phone] Asia Tafoya MD Cervical radiculopathy (Primary Dx); Sacroiliitis Discharge Disposition: Discharge to home or self care 01/03/2025 1:00 PM CDT Therapy [facility] - [place] [address] [place] [address] Juliet Olivares, PT Spinal cord stroke (HCC) (Primary Dx) 01/02/2025 Telephone [facility] [address] [facility] 1st [place] [phone] Pam Alvarado RN Pre Arrival 01/01/2025 8:30 AM CDT Therapy [facility] [place] [address] Riccardo Juarez, PT Spinal cord stroke (HCC) (Primary Dx) 12/29/2024 8:30 AM CDT Therapy [facility] Physical Therapy [place] [address] Riccardo Juarez, PT Spinal cord stroke (HCC) (Primary Dx) 12/28/2024 3:15 PM CDT Therapy [facility] [place] [address] Juliet Olivares, PT Spinal cord stroke (HCC) (Primary Dx) 12/21/2024 6:15 PM CDT Therapy [facility] [place] [address] Riccardo Juarez, PT Spinal cord stroke (HCC) (Primary Dx) 12/20/2024 1:00 PM CDT Therapy [facility] [place] [address] Juliet Olivares, PT Spinal cord stroke (HCC) (Primary Dx); Urge incontinence; Neuromuscular dysfunction of bladder, unspecified 12/15/2024 8:30 AM CDT Therapy [facility] [place] [address] Riccardo Juarez, PT Spinal cord stroke (HCC) (Primary Dx) 12/13/2024 1:45 PM CDT Therapy [facility] [place] [address] Juliet Olivares, PT Spinal cord stroke (HCC) (Primary Dx); Urge incontinence; Neuromuscular dysfunction of bladder, unspecified 12/06/2024 7:45 AM CDT Therapy [facility] [place] [address] Juliet Olivares, PT Spinal cord stroke (HCC) (Primary Dx); Urge incontinence; Neuromuscular dysfunction of bladder, unspecified 11/29/2024 2:30 PM CDT Therapy [facility] [place] [address] Riccardo Juarez, PT Spinal cord stroke (HCC) (Primary Dx) 11/22/2024 4:00 PM CDT Therapy [facility] Physical [facility] [place] [address] Juliet Olivares, PT Neuromuscular dysfunction of bladder, unspecified (Primary Dx); Urge incontinence; Spinal cord stroke (HCC) 11/17/2024 Telephone [facility] Cardiology [address] [place] [address] 8th [place] [address] [place] [address] Tip Holley MD 11/15/2024 2:30 PM CDT Therapy [facility] Physical [facility] [place] [address] Juliet Olivares, PT Neuromuscular dysfunction of bladder, unspecified; Urge incontinence 11/15/2024 Plan of Care Documentation [facility] Physical [facility] [place] [address] 11/15/2024 Telephone [facility] General Neurology [address] [facility] 6th [address] [place] [address] Micah Salcido RN 11/09/2024 [facility]phone [facility] [address] [facility] [address] [place] [address] Yash Britton MD 11/08/2024 4:30 PM CDT Office Visit [facility] Neurology [address] [facility] 6th [address] [place] [address] Darwin Hoskins MD PhD Atypical face pain (Primary Dx); Spinal cord stroke (HCC) 11/07/2024 7:37 AM CDT - 11/07/2024 11:59 PM CDT Hospital Encounter [facility] at [address] [address] Asia Tafoya MD Spondylosis of lumbar region without myelopathy or radiculopathy (Primary Dx); Cervical radiculopathy Discharge Disposition: Discharge to home or self care 11/03/2024 Telephone [facility] [address] [address] Pam Alvarado RN Pre Arrival 11/02/2024 4:00 PM CDT - 11/02/2024 11:59 PM CDT Hospital Encounter [address] [address] Asia Tafoya MD Torticollis, acquired (Primary Dx); Facial pain; Cervical radiculopathy; Spondylosis of lumbar region without myelopathy or radiculopathy Discharge Disposition: Discharge to home or self care 10/23/[address]th [place] [address] [place] [address] Tip Holley MD from Last 3 Months Immunizations Immunization Administration Dates Next Due Influenza, Quadrivalent, Rec ombinant, Egg Free, Preservative Free, Intramuscular 05/01/2020,03/27/2019 Influenza, Quadrivalent, Spl it, Intramuscular 04/26/2018 Influenza, Quadrivalent, Spl it, Preservative Free, Intramuscular 05/06/2021,04/19/2017 Influenza, Trivalent, IM (MDV) 04/13/2017,2015 Pfizer SARS-CoV-2 Monovalent Vaccination (12+ Yrs) PURPLE 10/02/2020,09/10/2020 Pneumococcal Polysaccharide PPV23 05/30/2014 Tdap 07/17/2014 ZOSTER LIVE 05/01/2018 ZOSTER Recombinant 10/11/2018,08/15/2018, 018 Surgical History Surgery Date Site/Laterality Comments EPIDURAL INJECTION LUMBOSACRAL 09/26/2015 N/A EPIDURAL INJECTION LUMBOSACRAL 08/09/2015 N/A EPIDURAL INJECTION LUMBOSACRAL 06/24/2015 N/A HEMORROIDECTOMY CARPAL TUNNEL RELEASE 07/12/1992 - 07/11/1993 Right OTHER SURGICAL HISTORY ulner release and elbow surgery CATARACT EXTRACTION W/ INTRAOCULAR LENS IMPLANT 07/12/2014 - 07/11/[address] Morrison EYE SURGERY 07/12/2012 - 07/11/2013 Dr Garcia HYSTERECTOMY 07/12/2014 - 07/11/2015 STEROID INJECTION KNEE Left IR INJECTION KNEE RIGHT Right synovisc LUMBAR PUNCTURE WO INJECTION , DIAGNOSTIC 01/17/2025 N/A Medical History Medical History Date Comments Allergy status to unspecifie d drugs, medicaments and biological substances status History of seasonal allergie s - (Added by TW Conv) Personal history of other di seases of the respiratory system History of asthma - (Added b y TW Conv) Personal history of other di seases of the nervous system and sense organs History of catarac t - (Added by TW Conv) Personal history of other di seases of the nervous system and sense organs History of glaucom a - (Added by TW Conv) Personal history of other me ntal and behavioral disorders History of depression - (Add ed by TW Conv) Anxiety disorder Anxiety - (Adde d by TW Conv) Personal history of other di seases of the circulatory system History of hypertension - (A dded by TW Conv) Personal history of other di seases of the digestive system History of gastroesophageal reflux (GERD) - (Added by TW Conv) Hypertension Depression Neck pain Cataract GERD (gastroesophageal reflux disease) 1994 Arthritis 2002 Asthma 1992 Osteoporosis 2015 Thyroid disease 1998 Autoimmune disease 2018 Sleep apnea 2016 uses cpap Family History Medical History Relation Name Comments Arthritis Father Reymundo Cancer Father Reymundo Heart disease Father Reymundo Arthritis Mother Era COPD Mother Era Cancer Mother Era Hypertension Mother Era Stroke Mother Era Breast cancer Sister 1 Hypertension Sister 1 Thyroid disease Sister 1 Breast cancer Sister 2 Hypertension Sister 2 Thyroid disease Sister 2 Cancer Sister 3 Angi Hypertension Sister 3 Angi Cancer Sister 4 [place] Glaucoma Neg Hx Macular degeneration Neg Hx Relation Name Status Comments Father Reymundo Mother Era Sister 1 Alive Sister 2 Alive Sister 3 Angi Sister 4 [place] Social History Tobacco Use Types Packs/Day Years Used Date Smoking Tobacco: Never Smokeless Tobacco: Never Tobacco Cessation:Counseling Given: Not Answered Alcohol Use Standard Drinks/Week Comments No 0 (1 standard drink = 0.6 oz pur e alcohol) rarely AUDIT-C Answer Date Recorded Q1: How often do you have a drink containing alc ohol? Never 07/15/2022 Average Number of Drinks Not on file 023 Frequency of Binge Drinking Not on file 10/2022 Personal Safety Answer Date Recorded Have you ever been in or are you currently in a harmful physical or emotional relationship or is someone making you feel afraid or unsafe? Denies 08/26/2024 Comments No Sex and Gender Information Value Date Recorded Sex Assigned at Not on file Legal Sex Female 10:45 AM INSURANCE ADMINISTRATIVE ASSISTANT Gender Identity Not on file Sexual Orientation Not on file Obstetrics History Last Filed Vital Signs Vital Sign Reading Time Taken Comments Blood Pressure 180/77 01/17/2025 2:00 PM CDT Pulse 60 01/17/2025 2:00 PM CDT Temperature 36.4 C (97.5 F) 01/17/2025 2:00 PM CDT Respiratory Rate 14 01/17/2025 2:00 PM CDT Oxygen Saturation 97% 01/17/2025 2:00 PM CDT Inhaled Oxygen Concentration - - Weight 89.1 kg (196 lb 8 oz) 11/08/2024 4:20 PM CDT Height 148.6 cm (4' 10.5) 11/08/2024 4:20 PM CD T Body Mass Index 40.37 11/08/2024 4:20 PM CDT Plan of Treatment Health Maintenance Due Date Last Done Comments Colon Cancer Screening-Colonoscopy 1960 Depression Screening 1960 Hepatitis C Screening 1960 Hepatitis B Screening 1978 Regular Well Visit/Exam 18-64 1978 Pneumococcal vaccine <65 (2 of 2 - PCV) 05/30/2015 05/30/2014 Covid-19 Vaccine ( - 2023-2 5 season) 2024 05/15/2022, 05/30/2021, 10/02/2020, Additional history exists DTaP/Tdap/Td Vaccine (2 - Td or Tdap) 07/17/2024 07/17/2014 Breast Cancer Screening-Mammogram 09/19/2024 09/20/2023, 09/20/2023, 06/05/2022, Additional history exists Influenza Vaccine (#1) 2025 , 05/30/2023, 05/15/2022, Additional history exists Zoster Vaccine Completed 10/11/2018, 10/2018, 05/01/2018, Additional history exists Goals Goal Patient Goal Type Associated Problems Recent Progress Patient-Stated? Author CCM Chronic Pain Care Plan Chronic Care Management On track(2024 7:58 AM CDT) No Renetta Grimm, RN Note: Problem: Chronic Pain Goals: 1. Minimize further functional decline 2. Maximize quality of life 3. Control pain Strategies: - Activity/exercise program recommendation - Conservative stepwise pain medicine strategy with multi-disciplinary approach - Recommend healthy lifestyle strategies and compensatory methods as needed Reduce the likelihood of falling Lifestyle Improving( 7:58 AM CDT) Renetta Longo, LAISHA Note: Below are four things you [...] on stairs Contact your local community or senior center for information on exercise, fall prevention programs, or options for improving home safety. Medical Devices Implanted Type Area Laundry Machine Tender Device Identifier Shelf Expiration Date Model / Serial / Lot [employer] Acrysof Iq Natural Stableforce Acrysert 6mm 13mm 1 Piece Foldable [id number] - [id number] - [id number] Implanted:Qty: 1 on 10/22/2021 by Tip Morrison MD at [facility] Lens Right: Eye [employer] [id number] 04/16/2026 [id number].18 0 / [id number] / Procedures Procedure Name Priority Date/Time Associated Diagnosis Comments FUNCTIONAL INJECTION, BOTULINUMTOXIN - FACIAL NERVE - OS - LEFT EYE Routine 01/18/2025 2:27 PM CDT Facial nerve spasm IR LUMBAR PUNCTURE, DIAGNOSTIC INCL FLUORO GUIDANCE Schedule Routine, Read Routine (OP Routine) 01/17/2025 12:50 PM CDT Spinal cord stroke (HCC) Leg weakness, bilateral OLIGOCLONAL BANDS Routine 01/17/2025 12:22 PM CDT GLUCOSE, CSF Routine 01/17/2025 12:22 PM CDT CELL COUNT W REFLEX DIFFERENTIAL, CSF Routine 01/17/2025 12:22 PM CDT CSF PROTEIN Routine 01/17/2025 12:22 PM CDT CYTOLOGY Routine 01/17/2025 12:20 PM CDT Spinal cord stroke (HCC) Leg weakness, bilateral MRI THORACIC SPINE W WO CONTRAST Schedule Routine, Read Routine (OP Routine) 01/11/2025 12:39 PM CDT Spinal cord stroke (HCC) Atypical face pain MRI INTERNAL AUDITORY CANAL INCL BRAIN W WO CONTRAST Schedule Routine, Read Routine (OP Routine) 01/11/2025 12:39 PM CDT Spinal cord stroke (HCC) Atypical face pain PAIN MGMT IMAGING CERVICAL/THORACIC EPIDURAL STEROID INJ Schedule Routine, Read Routine (OP Routine) 01/04/2025 10:28 AM CDT Cervical radiculopathy PAIN MGMT IMAGING LUMBAR/SACRAL ABLATION BILATERAL Schedule Routine, Read Routine (OP Routine) 11/07/2024 8:38 AM CDT Spondylosis of lumbar region without myelopathy or radiculopathy from Last 3 Months Results * Functional Injection, Botulinumtoxin - Facial Nerve - OS - Left Eye (01/18/2025 2:27 PM CDT) Anatomical Region Laterality Modality Head Other Narrative 01/18/2025 2:27 PM CDT Injection, Botulinumtoxin The injection site was prepped with a alcohol prep pad. Bacteriostatic saline at 5 units per 0.1ml. The medication administered today will not be billed to the patient or insurance. Post-op there were no complications during today's treatment. The patient received verbal post procedure care education. Nik Garcia MD [facility] PROCEDURES Final Result * IR Lumbar Puncture, Diagnostic incl Fluoro Guidance (01/17/2025 12:50 PM CDT) Anatomical Region Laterality Modality Spine N/A Radio Fluoroscop y 01/17/2025 1:52 PM CDT Impressions 01/17/2025 3:26 PM CDT Successful diagnostic lumbar puncture under fluoroscopic guidance. Dictated by: Patricio Aguilera M.D. The radiology attending physician has personally reviewed this study, and had reviewed and/or edited this written report and agrees with it. Electronically signed by: Cammy Gold M.D. Narrative 01/17/2025 3:26 PM CDT EXAMINATION: Diagnostic fluoroscopically guided lumbar puncture HISTORY: Concern for atypical cord infarct versus demyelination. TECHNIQUE: The risks and benefits of the lumbar puncture including, but not limited to infection, bleeding, spinal headache, cerebrospinal fluid (CSF) leak requiring blood patch procedure, and irritation or damage to nerves causing pain or permanent injury were discussed with the patient. The patient was given the opportunity to ask questions. The patient acknowledged understanding, gave verbal and written consent, and wished to proceed. A time-out was performed prior to the procedure. Attending physician: Dr. Cammy Gold M.D. was present for the entire procedure. The L3-L4 level was localized with fluoroscopy. The ribs were counted and this level confirmed. The skin overlying this level was sterilely prepped, draped, and infiltrated with 1% lidocaine for local anesthesia. Under intermittent fluoroscopic guidance, a 20 gauge 5 inch Quincke spinal needle was inserted into the thecal sac at this level. Clear CSF was identified. A total of 12 ml of CSF was removed and placed into 5 specimen tubes. The patient was then transferred to the nursing area for further observation and 1 hour of bedrest. OPENING PRESSURE: Not performed. Procedure Note Cammy Gold MD - 01/17/2025 EXAMINATION: Diagnostic fluoroscopically guided lumbar puncture HISTORY: Concern for atypical cord infarct versus demyelination. TECHNIQUE: The risks and benefits of the lumbar puncture including, but not limited to infection, bleeding, spinal headache, cerebrospinal fluid (CSF) leak requiring blood patch procedure, and irritation or damage to nerves causing pain or permanent injury were discussed with the patient. The patient was given the opportunity to ask questions. The patient acknowledged understanding, gave verbal and written consent, and wished to proceed. A time-out was performed prior to the procedure. Attending physician: Dr. Cammy Gold M.D. was present for the entire procedure. The L3-L4 level was localized with fluoroscopy. The ribs were counted and this level confirmed. The skin overlying this level was sterilely prepped, draped, and infiltrated with 1% lidocaine for local anesthesia. Under intermittent fluoroscopic guidance, a 20 gauge 5 inch Quincke spinal needle was inserted into the thecal sac at this level. Clear CSF was identified. A total of 12 ml of CSF was removed and placed into 5 specimen tubes. The patient was then transferred to the nursing area for further observation and 1 hour of bedrest. OPENING PRESSURE: Not performed. IMPRESSION: Successful diagnostic lumbar puncture under fluoroscopic guidance. Dictated by: Patricio Aguilera M.D. The radiology attending physician has personally reviewed this study, and had reviewed and/or edited this written report and agrees with it. Electronically signed by: Cammy Gold M.D. Darwin Hoskins MD PhD IMG FLUOROSCOPY PROCE SONNY Final Result * (ABNORMAL) Cell count w/reflex diff, CSF (01/17/2025 12:22 PM CDT) Tube Number, CSF Tube 1 Color, CSF Colorless Colorless [facility] Clarity, CSF Clear Clear [facility] Xanthochromia , CSF Absent Absent [facility] Nucleated cells, CSF 0 0 - 5 /cumm [facility] RBC, CSF 21(H) 0 - 0 /cumm [facility] CSF 01/17/2025 12:2 2 PM CDT 01/17/2025 2:50 PM CDT us Darwin Hoskins MD PhD LAB BODY FLUIDS AND S TOOLS ORDERABLES Final Result [facility] [place] [address] * Oligoclonal banding (01/17/2025 12:22 PM CDT) Oligoclonal bands, CSF 5 bands [place] ref [facility] Oligoclonal bands 5 bands [facility] Oligoclonal bands, interp 0 <2 bands [facility] Comment: The oligoclonal band assay detected no unique IgG bands in the CSF. This is a negative result. Test Performed by: [facility] [address] [place] [address] Analyst Microbiology Lab: Harriett Vazquez Ph.D.; CLIA# [id number] Blood/Cerebrospi nal fluid 01/17/2025 12:22 PM CDT 01/17/2025 3:55 PM CDT us Darwin Hoskins MD PhD LAB BLOOD ORDERABLES Final Result Performing Organization Address [facility] Co de Phone Number [facility] Department [place] [address] [place] ref [facility] * (ABNORMAL) Protein, total, CSF (01/17/2025 12:22 PM CDT) Protein, CSF 51(H) 5 - 45 mg/dL CSF 01/17/2025 12:2 2 PM CDT 01/17/2025 3:19 PM CDT us Darwin Hoskins MD PhD LAB BODY FLUIDS AND S TOOLS ORDERABLES Final Result Performing Organization Address City/[facility]/ZIP Co de Phone Number [facility] Department [place] [address] * Glucose, CSF (01/17/2025 12:22 PM CDT) Glucose, CSF 52 mg/dL Comment: Reference Interval Information: CSF Glucose should be 60-66% of the most current plasma glucose concentration (milligrams/deciliter) CLIN. CHEM. 41/3, 343-360 (1994), Clinical Utility of Biochemical Analysis of Cerebrospinal Fluid, Shaggy Lombardo and Dayne Steinberg. Current interpretive data was last revised on 2019. CSF 01/17/2025 12:2 2 PM CDT 01/17/2025 3:19 PM CDT Darwin Hoskins MD PhD LAB BODY FLUIDS AND S TOOLS ORDERABLES Final Result [facility] [place] [address] * Cytology (01/17/2025 12:20 PM CDT) Fluid (Cerebrospinal Fluid (Cytology)) 01/17/2025 12:20 PM CDT Narrative PATHOLOGY [facility] - 01/20/2025 12:26 PM CDT EPIC results best viewed via link to PDF [facility] [place] [address] Note to Patients: This report may contain a detailed description of human tissue sent by a health care provider to the laboratory for pathologic evaluation. The content of this report is essential for diagnosis and may provide important critical findings. This information may be unfamiliar to patients to review without a medical professional present. It is advised that the patient review this report in the presence of a health care provider who can answer questions and explain the details. CYTOPATHOLOGY REPORT FINAL Patient Name: BLADE KENNEDY Gender: F : 1960 (Age: 64) Address: [address] [place] [id number] [facility] #: [id number] Taken:01/17/2025 Received:01/17/2025 Reported: 01/20/2025 Patient Type: [facility] Ancillary Service: UNKNOWN Location: Physician(s): MD John Chadwick D.O. Enmanuel J. Perez, MD, PhD FINAL DIAGNOSIS A. Cerebrospinal fluid: - Negative for malignancy gp/01/18/2025 12:37 By this signature, I attest that the above diagnosis is based upon my personal examination of the slides(and/or other material indicated in the diagnosis). Mirtha Burnett M.D. Report Electronically Reviewed and Signed Out By Mirtha Burnett M.D. 01/20/2025 12:26:59 [facility] Gross Description A. Cerebrospinal fluid: 5 ml clear fluid - 2 Diff-Quik stained cytospins. (vo) Clinical Diagnosis and History The patient is a 64 year old woman with spinal cord stroke. REPORT IMAGES AND SCANNED DOCUMENTS, IF INCLUDED, ONLY VIEWABLE IN PDF VERSION OF REPORT The performance characteristics of some immunohistochemical stains, in-situ hybridization and fluorescence in-situ hybridization tests and immunophenotyping by flow cytometry cited in this report (if any) were determined by the Surgical Pathology and Flow Cytometry Departments at [facility] as part of an ongoing clinical quality analyst program and in compliance with federally mandated regulations drawn from the Clinical Laboratory Improvement Act of 1988 (CLIA '88). Some of these tests rely on the use of analyte specific reagents and are subject to specific labeling requirements by the US Food and Drug Administration. Such diagnostic tests may only be performed in a facility that is certified by the Department of Health and Human Services as a high complexity laboratory under CLIA '88. The FDA has determined that such clearance or approval is not necessary. This test is used for clinical purposes. It should not be regarded as investigational or for research. Nevertheless, federal rules concerning the medical use of analyte specific reagents require that the following disclaimer be attached to the report: This test was developed and its performance characteristics determined by the Surgical Pathology and Flow Cytometry Departments of [facility]. It has not been cleared or approved by the U. S. Food and Drug Administration. us Darwin Vicente Gato MD PhD LAB CYTOLOGY ORDERABL ES Final Result PATHOLOGY 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 Dictated by: Jovon Bello M.D. The radiology attending physician has personally reviewed this study, and had reviewed and/or edited this written report and agrees with it. Electronically signed by: Yolanda Ruth M.D. Narrative 01/11/2025 3:35 PM CDT EXAMINATION: Magnetic resonance imaging (MRI) of the thoracic spine without and with contrast HISTORY: Myelopathy, follow-up of previous conus lesion, concerning for spinal cord infarct versus myelitis TECHNIQUE: Multiplanar multi-weighted MRI of the thoracic was performed without and with intravenous contrast using the standard protocol. Contrast information: 18 mL Gadoterate Meglumine IV COMPARISON: MR thoracic spine 08/27/2024, and 08/28/2024 FINDINGS: The khanna matter within the distal thoracic spinal cord and conus medullaris demonstrates patchy high T2 signal and volume loss (for example series 5 image #4), most prominent in the ventral horns, consistent with chronic infarct/encephalomalacia. There is no associated abnormal contrast enhancement. A single axial series of postcontrast T1 images were obtained of the internal auditory canals, which are unremarkable. The alignment of the thoracic spine is normal. Vertebral bodies demonstrate predominantly hematopoietic bone marrow signal. There are a few small vertebral hemangiomas. There are no compression fractures. Intervertebral disks have normal height and signal intensity. Cardiomegaly is present. Multiple nonenhancing bilateral renal cysts are present. The aorta is normal. Procedure Note Yolanda Rosenbaum MD - 01/11/2025 EXAMINATION: Magnetic resonance imaging (MRI) of the thoracic spine without and with contrast HISTORY: Myelopathy, follow-up of previous conus lesion, concerning for spinal cord infarct versus myelitis TECHNIQUE: Multiplanar multi-weighted MRI of the thoracic was performed without and with intravenous contrast using the standard protocol. Contrast information: 18 mL Gadoterate Meglumine IV COMPARISON: MR thoracic spine 08/27/2024, and 08/28/2024 FINDINGS: The khanna matter within the distal thoracic spinal cord and conus medullaris demonstrates patchy high T2 signal and volume loss (for example series 5 image #4), most prominent in the ventral horns, consistent with chronic infarct/encephalomalacia. There is no associated abnormal contrast enhancement. A single axial series of postcontrast T1 images were obtained of the internal auditory canals, which are unremarkable. The alignment of the thoracic spine is normal. Vertebral bodies demonstrate predominantly hematopoietic bone marrow signal. There are a few small vertebral hemangiomas. There are no compression fractures. Intervertebral disks have normal height and signal intensity. Cardiomegaly is present. Multiple nonenhancing bilateral renal cysts are present. The aorta is normal. 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 Dictated by: Jovon Bello M.D. The radiology attending physician has personally reviewed this study, and had reviewed and/or edited this written report and agrees with it. Electronically signed by: Yolanda Ruth M.D. Darwin Hoskins MD PhD IMG MRI PROCEDURES Fi nal Result * MRI Internal Auditory Canal Brain W WO Contrast (01/11/2025 12:39 PM CDT) Anatomical Region Laterality Modality Head and Neck N/A Magnetic Resonan ce 01/11/2025 1:47 PM CDT Impressions 01/11/2025 1:47 PM CDT Enhancement involving the left 7th nerve. This is a nonspecific finding and may represent an inflammatory or infectious process, sequela of prior injury, or perhaps a neoplastic process. Ongoing follow-up imaging is recommended. Electronically signed by: Suhail Garcia M.D. Narrative 01/11/2025 1:47 PM CDT EXAMINATION: Magnetic resonance imaging (MRI) of the brain and brainstem without and with contrast HISTORY: Chronic left facial palsy. Atypical facial pain. TECHNIQUE: Multiplanar multi-weighted MRI of the brain and brainstem was performed without and with intravenous contrast using the general brain protocol. Additionally sequences detailing the internal auditory canals and posterior fossa were acquired as a part of the internal auditory canal protocol. Contrast information: 18 mL Gadoterate Meglumine IV COMPARISON: 02/26/2020, though this prior exam was limited by motion FINDINGS: There is enhancement involving the left facial nerve from its anterior genu to the stylomastoid foramen. There is possibly slight nodular enhancement near the anterior genu of the facial nerve. The right facial nerve appears normal. No mass nor abnormal enhancement is seen at the cerebellopontine angles. The scalp and calvarium are normal. The superior sagittal sinus demonstrates normal venous flow. The corpus callosum is normal in shape and signal intensity. The posterior fossa is unremarkable. The pituitary and sella are normal. The brainstem and craniocervical junction are unremarkable. Diffusion weighted images reveal no hyperintensities to suggest acute cerebral infarction. The susceptibility weighted sequences reveal no evidence of acute or chronic hemorrhage. The ventricles are normal in size and position without evidence of hydrocephalus. There are a few scattered punctate white matter FLAIR hyperintensities, which are typical for age. The paranasal sinuses are normal. The visualized portions of the mastoids are unremarkable. The orbits appear normal. Normal flow voids are demonstrated in the carotid arteries and basilar artery. Procedure Note Suhail Garcia MD - 01/11/2025 EXAMINATION: Magnetic resonance imaging (MRI) of the brain and brainstem without and with contrast HISTORY: Chronic left facial palsy. Atypical facial pain. TECHNIQUE: Multiplanar multi-weighted MRI of the brain and brainstem was performed without and with intravenous contrast using the general brain protocol. Additionally sequences detailing the internal auditory canals and posterior fossa were acquired as a part of the internal auditory canal protocol. Contrast information: 18 mL Gadoterate Meglumine IV COMPARISON: 02/26/2020, though this prior exam was limited by motion FINDINGS: There is enhancement involving the left facial nerve from its anterior genu to the stylomastoid foramen. There is possibly slight nodular enhancement near the anterior genu of the facial nerve. The right facial nerve appears normal. No mass nor abnormal enhancement is seen at the cerebellopontine angles. The scalp and calvarium are normal. The superior sagittal sinus demonstrates normal venous flow. The corpus callosum is normal in shape and signal intensity. The posterior fossa is unremarkable. The pituitary and sella are normal. The brainstem and craniocervical junction are unremarkable. Diffusion weighted images reveal no hyperintensities to suggest acute cerebral infarction. The susceptibility weighted sequences reveal no evidence of acute or chronic hemorrhage. The ventricles are normal in size and position without evidence of hydrocephalus. There are a few scattered punctate white matter FLAIR hyperintensities, which are typical for age. The paranasal sinuses are normal. The visualized portions of the mastoids are unremarkable. The orbits appear normal. Normal flow voids are demonstrated in the carotid arteries and basilar artery. IMPRESSION: Enhancement involving the left 7th nerve. This is a nonspecific finding and may represent an inflammatory or infectious process, sequela of prior injury, or perhaps a neoplastic process. Ongoing follow-up imaging is recommended. Electronically signed by: Suhail Garcia M.D. Darwin Hoskins MD PhD IMG MRI PROCEDURES Fi nal Result * Imaging Cervical/Thoracic Epidural Steroid INJ ([id number]) (01/04/2025 10:28 AM CDT) Narrative [facility] - 01/04/2025 1:01 PM CDT The images from this study are not interpreted by Radiology. Please refer to the physician's procedure / OR operative note. Asia Tafoya MD [facility] [place] PA[place] MGMT PROCEDURES Final R esult [facility] * Imaging Lumbar/Sacral Medial Branch RFA Bilateral ([id number]) (11/07/2024 8:38 AM CDT) Narrative [facility] - 11/07/2024 8:41 AM CDT The images from this study are not interpreted by Radiology. Please refer to the physician's procedure / OR operative note. Result [facility] Asia Tafoya MD IMG PAIN MGMT PROCEDURES Final R esult [facility] from Last 3 Months Insurance [facility] Advance Directives For more information, please contact: [phone] * Full Code (Latest Code Status on File) Date Activated Date Inactivated Comments 08/26/2024 1:51 AM 09/02/2024 1:48 AM Care Teams Marketing Intelligence Manager Relationship Specialty Start Date End Date John Byrd DO [address] [place] [id number] PCP - General Family Medicine 08/18/22 Asia Tafoya MD Consulting Physician Pain Management 01/05/22
--- OUTSIDE RECORDS SUMMARY | 2025-01-20 16:03 | XMS_ITS | Referral Summary ---
Author Organization [facility] Address [address] [place] [address] Care Team Providers Care Grip Wrapper Name Role Phone Asia Tafoya MD Unavailable John Byrd DO Primary Care Provide r Encounters Date Type Department Care Team Description 01/18/2025 9:00 AM CDT Procedure visit [facility] Ophthalmology [address] [facility] 6th [place] [phone] Nik Garcia MD Facial nerve spasm (Primary Dx) 01/17/2025 11:40 AM CDT - 01/17/2025 11:59 PM CDT Hospital Encounter [facility] Neuro Interventional Radiology [address] [place] [address] Spinal cord stroke (HCC); Leg weakness, bilateral Discharge Disposition: Discharge to home or self care 01/16/2025 Telephone [facility] Cardiology [address] [place] [address] [facility] 8th [place] [address] [place] [address] Tip Holley MD 01/16/2025 Telephone [facility] Neuro Interventional Radiology [address] [place] [address] Gisel Velasquez, LAISHA 01/15/2025 Telephone [facility] Neuro Interventional Radiology [address] [place] [address] RonGisel moreland RN 01/15/2025 3:15 PM CDT Therapy [facility] [place] [address] Riccardo Juarez, PT Spinal cord stroke (HCC) (Primary Dx) 01/11/2025 10:32 AM CDT - 01/11/2025 11:59 PM CDT Hospital Encounter [facility] [address] [place] [address] Spinal cord stroke (HCC); Atypical face pain Discharge Disposition: Discharge to home or self care 01/09/2025 Telephone [facility] Neuro Interventional Radiology [address] [place] [address] Gisel Velasquez RN 01/09/2025 3:15 PM CDT Therapy [facility] [place] [address] Juliet Olivares, PT Spinal cord stroke (HCC) (Primary Dx) 01/04/2025 9:42 AM CDT - 01/04/2025 11:59 PM CDT Hospital Encounter [facility] [place] [address] [facility] [address] [place] [address] Asia Tafoya MD Cervical radiculopathy (Primary Dx); Sacroiliitis Discharge Disposition: Discharge to home or self care 01/03/2025 1:00 PM CDT Therapy [facility] [place] [address] Juliet Olivares, PT Spinal cord stroke (HCC) (Primary Dx) 01/02/2025 Telephone [facility] [place] [address] [facility] 1st [place] [address] Pam Alvarado RN Pre Arrival 01/01/2025 8:30 AM CDT Therapy [facility] [place] [address] Riccardo Juarez, PT Spinal cord stroke (HCC) (Primary Dx) 12/29/2024 8:30 AM CDT Therapy [facility] Physical [facility] [place] [address] Riccardo Juarez, PT Spinal cord stroke (HCC) (Primary Dx) 12/28/2024 3:15 PM CDT Therapy [facility] [place] [address] Juliet Olivares, PT Spinal cord stroke (HCC) (Primary Dx) 12/21/2024 6:15 PM CDT Therapy [facility] [place] [address] Riccardo Juarez, PT Spinal cord stroke (HCC) (Primary Dx) 12/20/2024 1:00 PM CDT Therapy [facility] [place] [address] Juliet Olivares, PT Spinal cord stroke (HCC) (Primary Dx); Urge incontinence; Neuromuscular dysfunction of bladder, unspecified 12/15/2024 8:30 AM CDT Therapy [facility] [place] [address] Riccardo Juarez, PT Spinal cord stroke (HCC) (Primary Dx) 12/13/2024 1:45 PM CDT Therapy [facility] Physical [facility] [place] [address] Juliet Olivares, PT Spinal cord stroke (HCC) (Primary Dx); Urge incontinence; Neuromuscular dysfunction of bladder, unspecified 12/06/2024 7:45 AM CDT Therapy [facility] [place] [address] Juliet Olivares, PT Spinal cord stroke (HCC) (Primary Dx); Urge incontinence; Neuromuscular dysfunction of bladder, unspecified 11/29/2024 2:30 PM CDT Therapy [facility] [place] [address] Riccardo Juarez, PT Spinal cord stroke (HCC) (Primary Dx) 11/22/2024 4:00 PM CDT Therapy [facility] [place] [address] Juliet Olivares, PT Neuromuscular dysfunction of bladder, unspecified (Primary Dx); Urge incontinence; Spinal cord stroke (HCC) 11/17/2024 Telephone [facility] Cardiology [address] [place] [address] 8th [place] [address] [place] [phone] Tip Holley MD 11/15/2024 Plan of Care Documentation [facility] Physical [place] [address] 11/15/2024 Telephone [facility] General Neurology [address] [facility] 6th Floor [address] [place] [phone] Micah Salcido RN 11/15/2024 2:30 PM CDT Therapy [facility] Physical [place] [address] Juliet Olivares, PT Neuromuscular dysfunction of bladder, unspecified; Urge incontinence 11/09/2024 Telephone [facility] [address] [facility] [address] [place] [address] Yash Britton MD 11/08/2024 4:30 PM CDT Office Visit [facility] General Neurology [address] [facility] 6th Floor [address] [place] [address] Darwin Hoskins MD PhD Atypical face pain (Primary Dx); Spinal cord stroke (HCC) 11/07/2024 7:37 AM CDT - 11/07/2024 11:59 PM CDT Hospital Encounter [facility] at [facility] [address] [facility] 1st [place] [address] Asia Tafoya MD Spondylosis of lumbar region without myelopathy or radiculopathy (Primary Dx); Cervical radiculopathy Discharge Disposition: Discharge to home or self care 11/03/2024 Telephone [facility] [place] [address] [facility] 1st [place] [address] Pam Alvarado RN Pre Arrival 11/02/2024 4:00 PM CDT - 11/02/2024 11:59 PM CDT Hospital Encounter [facility] [place] [address] [facility] 1st [place] [address] Asia Tafoya MD Torticollis, acquired (Primary Dx); Facial pain; Cervical radiculopathy; Spondylosis of lumbar region without myelopathy or radiculopathy Discharge Disposition: Discharge to home or self care 10/23/2024 Telephone [place] [address] [facility] 8th [place] [address] [place] [address] Tip Holley MD from Last 3 Months Allergies Active Allergy Reactions Criticality Noted Date Comments Amoxicillin-Pot Clavulanate Hives Medium 03/18/2022 Propoxyphene-Acetaminophen Vomiting Low 1 Flavoring Agent (Bulk) Hives Medium 03/18/2022 Kiwi Swelling High 01/03/2015 Lip swelling Kiwi (Actinidia Chinensis) Hives,Swelling High 01/03 Lip swelling Other reaction(s): Hives Levopropoxyphene Napsylate Hives Medium 2 Black Swelling High 01/03/2015 Lip swelling [place] Flavor Hives Medium 03/18/2022 Oseltamivir Hives,Itching,Other (See comments) Medium 08/29/2019 Other reaction(s): Hives Propoxyphene Unknown 03/12/2022 Topiramate Other (See comments),Hives Medium 08/21/2015 Constipation & Insomnia Constipation & Insomnia Other reaction(s): Hives Tramadol Dizziness,Other (See comments) Low 10/07/2020 Allergen Ov-Thnvc-Ylpa Protein Swelling Medium 09/03/2014 Medications PROAIR HFA [...] mcg tablet Take 112 mcg by mouth bulk pigment reducer before breakfast Active diclofenac sodium (VOLTAREN) 1 [...] times a day Hold for diarrhea 08/31/19 Active lidocaine (LIDODERM) 5 % Place 1 patch on the skin daily Remove & discard patch within 12 hours or as directed by MD. 09/01/19 Active carBAMazepine ER (CARBATROL) 200 mg 12 hr capsule TAKE 2 CAPSULES TWICE DAILY, MAY TAKE AN EXTRA CAPSULE ONCE DAILY NEEDED 400 capsule 11/02/19 Active baclofen (LIORESAL) 10 mg tablet TAKE 1 AND 1/2 TABLETS TWICE DAILY 270 tablet 1 11/02/19 25 Active Additional Information Patient taking differently: 10 mg oral Nightly, Reported on 01/04/2025 mirabegron ER (MYRBETRIQ) 50 mg tablet extended release 24 hr Take 1 tablet (50 mg total) by mouth daily 11/04/19 Active eluxadoline (Viberzi) 100 mg tablet Take 1 tablet (100 mg total) by mouth as needed Active nystatin powder Apply topically 4 (four) times a day Active docosahexaenoic acid/epa (FISH OIL ORAL) Take by mouth Active EPINEPHRINESNAP INJ Inject as directed Active Active Problems Problem Noted Date Diagnosed Date Constipation 08/30/2024 Assessment & Plan (09/01/2024 9:28 AM PUNCHING MACHINE OPERATOR): Patient has not been able to have a BM for the past several day -> Miralax, Senna, Mag citrate x1 given -Lactulose 08/30 --> multiple bowel movements subsequently -RESOLVED Spinal cord stroke 08/26/2024 Assessment & Plan (09/01/2024 9:29 AM PUNCHING MACHINE OPERATOR): Presented to OSH with acute low back [...] 08/26/2024 Assessment & Plan (08/28/2024 6:12 PM PUNCHING MACHINE OPERATOR): - Hole home mirabegron while galan in place Depression, major, recurrent 08/26/2024 Assessment & Plan (08/26/2024 2:31 AM PUNCHING MACHINE OPERATOR): Cont cymbalta and trazodone Posterior capsular opacification, right eye 08/11/2021 PVD (posterior vitreous detachment), bilateral 0 11/10/2021 [...] 01/10/2019 Assessment & Plan (08/28/2024 6:11 PM PUNCHING MACHINE OPERATOR): Continue home baclofen,duloxetine, and carbamazepine Assessment & [...] Keep f/u with Dr. Garcia as scheduled. Exposure keratopathy, left 01/10/2019 Assessment [...] 01/03/2015 Assessment & Plan (08/28/2024 6:11 PM PUNCHING MACHINE OPERATOR): Continue home synthroid Facial pain 12/04/2014 Decreased thyroid stimulating hormone (TSH) leve l 09/03/2014 Hypertension 09/03/2014 Assessment & Plan (08/26/2024 2:09 AM PUNCHING MACHINE OPERATOR): Home medication are 5 mg amlodipine, 50 mg HCTZ at night, 50 mg hydralazine t.i.d., 200 mg labetalol b.i.d. We will continue all home blood pressure medications Herniation of intervertebral disc of cervical re gion 08/16/2014 Resolved Problems Problem Noted Date Diagnosed Date Resolved Date Osteoporosis 08/26/2024 08/28/2024 Assessment & Plan (08/26/2024 2:07 AM PUNCHING MACHINE OPERATOR): Take ibanddronate every month, hold during admission Lichen planus 08/26/2024 08/26/2024 Assessment & Plan (08/26/2024 2:08 AM PUNCHING MACHINE OPERATOR): Monitor, will hold vario IBS (irritable bowel syndrome) 08/26/2024 08/28/2024 Assessment & Plan (08/26/2024 2:17 AM PUNCHING MACHINE OPERATOR): On viberzi will hold during admission Left [...] yag. 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 Asthma 06/13/2019 Immunizations Immunization Administration Dates Next Due Influenza, Quadrivalent, Rec ombinant, Egg Free, Preservative Free, Intramuscular 05/01/2020,03/27/2019 Influenza, Quadrivalent, Spl it, Intramuscular 04/26/2018 Influenza, Quadrivalent, Spl it, Preservative Free, Intramuscular 05/06/2021,04/19/2017 Influenza, Trivalent, IM (MDV) 04/13/2017,2015 Pfizer SARS-CoV-2 Monovalent Vaccination (12+ Yrs) PURPLE 10/02/2020,09/10/2020 Pneumococcal Polysaccharide PPV23 05/30/2014 Tdap 07/17/2014 ZOSTER LIVE 05/01/2018 ZOSTER Recombinant 10/11/2018,08/15/2018, 018 Social History Tobacco Use Types Packs/Day Years [...] on file Legal Sex Female 10:45 AM PUNCHING MACHINE OPERATOR Gender Identity Not on file Sexual Orientation [...] 11/08/2024 4:20 PM CDT Plan of Treatment Not on file Goals Goal Patient Goal Type Associated Problems [...] falling Lifestyle Improving( 7:58 AM CDT) Renetta Longo RN Note: Below are four things you can [...] on stairs Contact your local community or [facility] for information on exercise, fall prevention programs, or options for improving home safety. Medical Devices Implanted Type Area Power Lineman Device Identifier Shelf Expiration Date Model / Serial / Lot [employer] Acrysof Iq Natural Stableforce Acrysert 6mm 13mm 1 Piece Foldable Sn60wf.180 - [id number] - [id number] Implanted:Qty: 1 on 10/22/2021 by Tip Morrison MD at [facility] Lens Right: Eye [employer] [id number] 04/16/2026 [id number].18 0 / [id number] / Procedures Procedure Name Priority Date/Time [...] post procedure care education. Nik Garcia MD [facility] PROCEDURES Final Result * IR Lumbar Puncture, [...] Darwin Hoskins MD PhD IMG FLUOROSCOPY PROCE DURES Final Result * (ABNORMAL) Cell count w/reflex diff, CSF (01/17/2025 12:22 PM CDT) Tube Number, CSF Tube 1 Color, CSF Colorless Colorless [facility] Clarity, CSF Clear Clear [facility] Xanthochromia , CSF Absent Absent [facility] Nucleated cells, CSF 0 0 - 5 /cumm [facility] RBC, CSF 21(H) 0 - 0 /cumm [facility] CSF 01/17/2025 12:2 2 PM CDT 01/17/2025 2:50 PM CDT Darwin Hoskins MD PhD LAB BODY FLUIDS AND S TOOLS ORDERABLES Final Result [facility] Department [place] [address] * Oligoclonal banding (01/17/2025 12:22 PM CDT) [facility] Oligoclonal bands, CSF 5 bands [facility] Oligoclonal bands 5 bands [facility] Oligoclonal bands, interp 0 <2 bands [facility] Comment: The oligoclonal band assay detected no unique IgG bands in the CSF. This is a negative result. Test Performed by: [facility] [address] [place] [address] Brazer Helper Induction: Harriett Vazquez Ph.D.; CLIA# [id number] Blood/Cerebrospi nal fluid 01/17/2025 12:22 PM CDT 01/17/2025 3:55 PM CDT Result [facility] Darwin Hoskins MD PhD LAB BLOOD ORDERABLES Final Result Performing Organization Address [facility] de Phone Number [facility] [place] [address] [place] [facility] * (ABNORMAL) Protein, total, CSF (01/17/2025 12:22 PM CDT) Protein, CSF 51(H) 5 - 45 mg/dL CSF 01/17/2025 12:2 2 PM CDT 01/17/2025 3:19 PM CDT Result [facility] Darwin Hoskins MD PhD LAB BODY FLUIDS AND S TOOLS ORDERABLES Final Result Performing Organization Address [facility] Phone Number [facility] [place] [address] * Glucose, CSF (01/17/2025 12:22 PM CDT) [...] 2 PM CDT 01/17/2025 3:19 PM CDT Result [facility] Darwin Hoskins MD PhD LAB BODY FLUIDS AND S TOOLS ORDERABLES Final Result Performing Organization Address [facility] Co de Phone Number [facility] [place] [address] * Cytology (01/17/2025 12:20 PM CDT) Fluid (Cerebrospinal Fluid (Cytology)) 01/17/2025 12:20 PM CDT Narrative PATHOLOGY [facility] - 01/20/2025 12:26 PM CDT EPIC results best viewed via link to PDF [facility] Freda Rodriguez [facility] [place] [address] Note to Patients: This report may contain [...] Gender: F : 1960 (Age: 64) Address: [address] [place], [place] [phone] Hospital #: [id number] Taken:01/17/2025 Received:01/17/2025 Reported: 01/20/2025 Patient Type: [facility] Ancillary Service: UNKNOWN Location: Physician(s): MD John [...] By Mirtha Burnett M.D. 01/20/2025 12:26:59 JAIRON Palafox(ASCP) Gross Description A. Cerebrospinal fluid: 5 ml [...] Surgical Pathology and Flow Cytometry Departments at [facility] as part of an ongoing coding quality analyst program and in compliance with [...] Surgical Pathology and Flow Cytometry Departments of [facility]. It has not been cleared or approved by the U. S. Food and Drug Administration. Darwin Hoskins MD PhD LAB CYTOLOGY ORDERABL ES Final Result PATHOLOGY [facility] 3rd Floor [place], [place] [phone] * MRI Thoracic Spine W WO Contrast [...] present. The aorta is normal. Procedure Note Robbie Ruth, Yolanda Hopkins MD - 01/11/2025 EXAMINATION: Magnetic resonance imaging [...] it. Electronically signed by: Yolanda Ruth M.D. us Darwin Hoskins MD PhD IMG MRI PROCEDURES [...] imaging is recommended. Electronically signed by: Suhail Gacria M.D. Narrative 01/11/2025 1:47 PM CDT EXAMINATION: [...] follow-up imaging is recommended. Electronically signed by: Manu Doc Jose, M.D. Darwin Hoskins MD PhD IMG MRI PROCEDURES Fi nal Result * Imaging Cervical/Thoracic Epidural Steroid INJ ([id number]) (01/04/2025 10:28 AM CDT) Narrative [facility] - 01/04/2025 1:01 PM CDT The images from this study are not interpreted by Radiology. Please refer to the physician's procedure / OR operative note. Asia Tafoya MD IMG PAIN MGMT PROCEDURES Final R esult [facility] * Imaging Lumbar/Sacral Medial Branch RFA Bilateral ([id number]) (11/07/2024 8:38 AM CDT) Narrative [facility] - 11/07/2024 8:41 AM CDT The images from this study are not interpreted by Radiology. Please refer to the physician's procedure / OR operative note. Asia Tafoya MD [facility] PAIN MGMT PROCEDURES Final R [facility] Performing Organization Address City/[facility]/ZIP Co de Phone Number [facility] from Last 3 Months Insurance [facility] Advance Directives For more information, please contact: [phone] * Full Code (Latest Code Status on File) Date Activated Date Inactivated Comments 08/26/2024 1:51 AM 09/02/2024 1:48 AM Care Teams Grip Wrapper Relationship Specialty Start Date End Date John Byrd DO [address] [place] [id number] PCP - General Family Medicine 08/18/22 Asia Tafoya MD Consulting Physician Pain Management 01/05/22
--- OUTSIDE RECORDS SUMMARY | 2025-01-20 16:03 | XMS_ITS | Data Portability ---
Author Organization [place] [facility], Main Office Address [address] [place] [address] Care Team Providers Care Doctor Osteopathic Name Role Phone MILA CAMEJO Primary Care Provider MILA CAMEJO Referring Provider [phone] Assessment Encounter Date Assessment Date Assessment LastModified by Organization Details LastModified Time 01/24/2024 01/24/2024 The patient has moderately severe primary osteoarthritis both knee joints. Under sterile conditions I injected the patient's bilateral knee joints in the office today with Gelsyn 3 injections both knees. She tolerated the procedure well. This was injection 1. Both knees from the specialty pharmacy. I will see her back next week for the 2nd injection both knees she voiced understanding agrees above plan she will call for any further problems difficulties or questions. Not available 01/24/2024 09:20:09 01/31/2024 01/31/2024 The patient has moderately severe primary osteoarthritis both knee joints. Under sterile conditions I injected both knee joints in the office today with Gelsyn-3 injection number 2 both knees. She brings the medication from the specialty pharmacy with her today. The patient tolerated the procedures well. She was due for new x-rays today however she is in a hurry she has to be somewhere else so we will get the x-rays next week. We will review them at that time her previous x-rays are a year old now. We will get updated x-rays next week. She voiced understanding agrees above plan she will call for any further problems difficulties or questions. Not available 01/31/2024 09:32:44 02/07/2024 02/07/2024 By x-ray exam today the patient is noted to have moderate primary osteoarthritis of both knees. Under sterile conditions I injected both knee joints in the office today with Gelsyn 3 injections, the 3rd injection in both knees in the series. She tolerated the procedure well. She is feeling well I will see her back as needed we can do this again in 6 months if necessary or cortisone in between the shots. She has been making good progress with losing weight states she has lost about 35 lb she thinks this is helping her knees as well. I agree. She voiced understanding agrees above plan she will call for any further problems difficulties or questions. Today's x-rays did not show any significant exchange administrator the last year compared to previous x-rays. Not available 02/07/2024 09:37:23 05/12/2024 05/12/2024 The patient has moderate primary osteoarthritis of both knees of the right knee is feeling good the left 1 is continuing to bother her with recurrence of pain therefore under sterile conditions at her request I injected the patient's left knee joint in the office with 4 cc of 0.5% bupivacaine and 20 mg of Kenalog. Patient tolerated procedure well. As far as her right shoulder she has chronic rotator cuff tendonitis with impingement at her request under sterile conditions I injected the patient's right shoulder subacromial space in the office with 4 cc of 0.5% bupivacaine and 20 mg of Kenalog. Patient tolerated procedure well. We will give her a new order for physical therapy she is going to continue with this on her own at home. I will see her back in 6 weeks to see how she is doing she voiced understanding agrees above plan she will call for any further problems difficulties or questions. Not available 05/12/2024 15:03:06 08/10/2024 08/10/2024 The patient has rotator cuff tendonitis left shoulder x-rays today were fairly unremarkable she does have significant AC joint arthrosis but her acromion is only type 1-2. We talked about treatment options today she did very well with therapy and a cortisone injection into the right shoulder she would like to proceed with the left. Therefore under sterile conditions I injected the patient's left shoulder subacromial space in the office with 4 cc 0.5% bupivacaine and 20 mg of Kenalog. Patient tolerated the procedure well. We will start a course of physical therapy for her left shoulder as well she will continue to do the exercises on the right. I will see her back in 6 weeks see how she is coming along. She will continue with Celebrex as well she voiced understanding and agreed with the above plan she will call for any further problems difficulties or questions. She declined oral prednisone states she does not like the side effects Not available 08/10/2024 09:20:03 Plan of Treatment Reminders Order Date Submit Date Provider Last Modified By Organization Details Last Modified Time Details Appointments None recorded. Lab None recorded. Referral physical therapist referral - continue 2024 025 [facility], [address], [place], [address], 10:10:32 physical therapist referral - patient will schedule 2023 024 [facility], [address], [place], [address], 4 15:39:06 Procedures injection/ aspiration joint/burs a (PROC) 2024 025 In-Office Order, Internal Use Only DO Not Attach Compendium DO Not Attach Compendium, Do Not Delete/merge, [id number] 08:55:47 injection/ aspiration joint/burs a (PROC) 2023 024 In-Office Order, Internal Use Only DO Not Attach Compendium DO Not Attach Compendium, Do Not Delete/merge, [id number] 14:11:43 injection/ aspiration joint/burs a (PROC) 2023 024 In-Office Order, Internal Use Only DO Not Attach Compendium DO Not Attach Compendium, Do Not Delete/merge, [id number] 14:11:43 injection/ aspiration joint/burs a (PROC) - in office procedure, administer ed by provider 2023 024 In-Office Order, Internal Use Only DO Not Attach Compendium DO Not Attach Compendium, Do Not Delete/merge, [id number] 09:16:31 injection/ aspiration joint/burs a (PROC) - in office procedure, administer ed by provider 2023 024 [email or web address] In-Office Order, Internal Use Only DO Not Attach Compendium DO Not Attach Compendium, Do Not Delete/merge, [id number] 09:25:55 knee aspiration /injection (PROC) 2023 024 [email or web address] In-Office Order, Internal Use Only DO Not Attach Compendium DO Not Attach Compendium, Do Not Delete/merge, [id number] 09:06:14 Surgeries None recorded. Imaging XR, shoulder 2024 025 [email or web address] [facility] [place], [address], [place], [address], 5 09:25:07 XR, knee 2023 024 [facility] [place], [address], [place], [address], 4 09:46:10 Medication Orders bupivacain e HCl 0.5 % (5 mg/mL) injection solution 2024 025 [id number], [address], [place], [place], [id number], 5 09:03:25 Kenalog 10 mg/mL suspension for injection 2024 025 [facility] #[id number], [address], [place], [place], [id number], 5 09:03:25 bupivacain e HCl 0.5 % (5 mg/mL) injection solution 2023 024 [facility] #[id number], [address], [place], [place], [id number], 4 14:56:53 Kenalog 10 mg/mL suspension for injection [address] [facility], [address], [place], [place], [id number], 4 14:56:53 bupivacain e HCl 0.5 % (5 mg/mL) injection solution 2023 [address] [address]247[facility], [address], [place], [place], [id number], 4 14:56:53 Kenalog 10 mg/mL suspension for injection 2023 0[address] [email or web address] [facility] [facility], [address], [place], [place], [id number], 4 14:56:53 Patient TargetsNo targets recorded. Patient InstructionsNo instructions recorded. Reason for Referral Physical Therapist Referral for Pain of right shoulder joint patient will schedule Referring Physician: Idris Herrera, Orthopedic Surgery, Encounter Date: 05/12/2024 Physical Therapist Referral for Bilateral shoulder joint pain continue Referring Physician: Idris Herrera, Orthopedic Surgery, Encounter Date: 08/10/2024 Results Created Date Observation Date Name Description Value Unit Range Abnormal Flag Note LastModifiedBy Organization Detail LastModifiedTime 02/07/20 24 XR, knee No observ ation record ed. [facility] [place] [address], [place], [address], 02/07/2024 09:46:08 08/10/19 25 XR, shoul lenard No observ ation record ed. [facility] [place] [address], [place], [address], 08/10/2024 09:20:51 Result Notes None recorded. Problems Name Problem SNOMED Code Status Onset Date Resolution Date Notes Provider Name and Address Organization Details Recorded Time Osteoarthr itis of knee 681208784 Active 2021 Not Available [facility] 3 15:40:53 Low back pain 741924623 Active Not Available [facility] 3 15:40:53 Current tear of medial cartilage AND/OR meniscus of knee Active Not Available [facility] 3 15:40:53 Enthesopat hy of hip region 87673113 Active Not Available [facility] 3 15:40:53 Trochanter ic bursitis of right hip 7844215925519 00 Active 2021 Not Available [facility] 3 15:40:53 Osteoarthr itis 152486799 Active 2021 Not Available [facility] 3 15:40:53 Derangemen t of knee 75639049 Active Not Available [facility] 3 15:40:53 Osteoarthr itis of ankle and/or foot 90445264 Active Not Available [facility] 3 15:40:53 Pain in limb 54822795 Active Not Available [facility] 3 15:40:53 Bilateral osteoarthr itis of knees 7069931706765 07 Active 2022 Madison Perez CNA null, [place] [facility] [employer] 3 13:54:29 Pain of bilateral hip joints 1582030324434 9100 Active 2022 Madison Perez CNA null, [place] [facility] [employer] [employer] 3 09:50:04 Bilateral trochanter ic bursitis 9754035958768 9109 Active 2022 BJ Denis [address] [place] [address], [place], [address] , [place] [facility] [employer] 3 10:25:32 Pain of right shoulder joint 4611591723323 9100 Active 2023 Cyn islas, [place] [facility] 4 09:38:25 Tendinitis of rotator cuff tendon 933330317 Active 2023 Kenna Long RMAniceto null, [place] [facility] 4 09:05:02 Pain of bilateral knee joints 8191320650322 04 Active 2023 Madison Perez [employer] null, [place] [facility] 4 09:05:26 Pain of left knee joint 0961907231806 07 Active 2023 Madison Perez [employer] null, [place] [facility] 4 14:09:03 Pain of left shoulder joint 6663372079904 9109 Active 2024 Madison Perez [employer] null, [place] [facility] 5 08:54:12 Bilateral shoulder joint pain 0419720952633 9104 Active 2024 Cyn De Souza null, [place] [facility] 5 09:14:06 Tendinitis of left rotator cuff 8457347457345 9101 Active 2024 BJ Denis [address], [place] [address], [place], [address] , [facility] 5 09:21:29 Tendinitis of right rotator cuff 5522763933537 9104 Active 2024 BJ Denis [address], [place], [address] , [facility] 5 09:21:46 Notes:Some problems listed i n Document: #[id number] could not be added to this patient's chart. Please review this document and add these problems to the patient's chart manually as needed. Problem Notes None recorded. Procedures Surgical History Date Name Laterality Status Provider Name and Address Organization Details Recorded Time procedure on elbow completed Not Available [facility] 09/09/2022 15:40:05 hysterectomy completed Not Available [facility] 15:40:05 Imaging Results None recorded. Procedure Notes None recorded. Medical Equipment None Reported. Allergies Allergen ID Allergen Name Allergen Category Reaction Reaction Severity Criticality Documentation Date Start Date Code Code System Note Provider Name and Address Organization Details Recorded Time 67064 tramadol medicatio n dizziness Not available Not available 09/09/2022 08165 RxNorm Not Available [facility] 3 15:41:51 Medications Name Sig Start Date Stop Date Status Note LastModified by Organization Details LastModified Time losartan 50 mg tablet 01/30 completed Not Available Not Available Not Available celecoxib 200 mg capsule TAKE 1 CAPSULE DAILY active Not Available Not Available No t Available cyclobenzap rine 10 mg tablet 05/11 completed Not Available Not Available Not Available fluconazole 100 mg tablet 05/11 completed Not Available Not Available Not Available methocarbam ol 500 mg tablet 01/30 completed Not Available Not Available Not Available metformin 500 mg tablet active Not Available Not Available Not Available prednisone 10 mg tablet active Not Available Not Available Not Available labetalol 200 mg tablet TAKE 1 TABLET TWICE A DAY active Not Available Not Available No t Available trazodone 50 mg tablet TAKE 2 TABLETS EVERY NIGHT AT BEDTIME active Not Available Not Available No t Available atorvastati n 10 mg tablet active Not Available Not Available Not Available azithromyci n 250 mg tablet active Not Available Not Available Not Available ibuprofen 800 mg tablet active Not Available Not Available Not Available ofloxacin 0.3 % eye drops active Not Available Not Available Not Available fluconazole 150 mg tablet 05/11 completed Not Available Not Available Not Available metoprolol succinate ER 50 mg tablet,exte nded release 24 hr 05/11 completed Not Available Not Available Not Available hydrochloro thiazide 50 mg tablet 01/30 completed Not Available Not Available Not Available clarithromy jatin 500 mg tablet 05/11 completed Not Available Not Available Not Available hydrocodone 5 mg-acetamin ophen 325 mg tablet active Not Available Not Available No t Available Nystop 100,000 unit/gram topical powder active Not Available Not Available Not Available sucralfate 1 gram tablet 01/30 completed Not Available Not Available Not Available bupivacaine HCl 0.5 % (5 mg/mL) injection solution Take 20 mg by injection route. 2024 active Not Available Not Available Not Avai lable prednisone 20 mg tablet 01/30 completed Not Available Not Available Not Available Synthroid 100 mcg tablet 01/30 completed Not Available Not Available Not Available metoprolol succinate ER 100 mg tablet,exte nded release 24 hr 05/11 completed Not Available Not Available Not Available sertraline 100 mg tablet 01/30 completed Not Available Not Available Not Available amlodipine 2.5 mg tablet 01/30 completed Not Available Not Available Not Available amlodipine 5 mg tablet TAKE 1 TABLET DAILY active Not Available Not Available No t Available acyclovir 400 mg tablet 05/11 completed Not Available Not Available Not Available ketorolac 0.5 % eye drops active Not Available Not Available Not Available prednisone 10 mg tablets in a dose pack Take 1 tab by mouth, 3 times a day for 3 daysTake 1 tab by mouth 2 times a day for 2 daysTake 1 tab by mouth once a day for 1 day 2023 active Not Available Not Available Not Avai lable carbamazepi ne 200 mg tablet 01/30 completed Not Available Not Available Not Available oxycodone-a cetaminophe n 5 mg-325 mg tablet 05/11 completed Not Available Not Available Not Available prednisolon e acetate 1 % eye drops,suspe nsion 01/30 completed Not Available Not Available Not Available Kenalog 10 mg/mL suspension for injection Take 20 mg by injection route. 2024 active [facility]: [phone]- [phone] Not Available Not Available Not Available meclizine 25 mg tablet 01/30 completed Not Available Not Available Not Available baclofen 10 mg tablet TAKE 1 AND 1/2 TABLETS TWICE DAILY active Not Available Not Available No t Available amlodipine 10 mg tablet 01/30 completed Not Available Not Available Not Available benzonatate 100 mg capsule 01/30 completed Not Available Not Available Not Available doxycycline monohydrate 100 mg capsule 01/30 completed Not Available Not Available Not Available cephalexin 500 mg capsule active Not Available Not Available Not Available erythromyci n 5 mg/gram (0.5 %) eye ointment 05/11 completed Not Available Not Available Not Available tacrolimus 0.1 % topical ointment active Not Available Not Available Not Available esomeprazol e magnesium 40 mg capsule,del ayed release TAKE 1 CAPSULE TWICE DAILY active Not Available Not Available No t Available clotrimazol e-betametha sone 1 %-0.05 % topical cream 05/11 completed Not Available Not Available Not Available carbamazepi ne 100 mg chewable tablet 11/20 completed Not Available Not Available Not Available montelukast 10 mg tablet 05/11 completed Not Available Not Available Not Available hydralazine 50 mg tablet TAKE 1 TABLET 3 TIMES A DAY active Not Available Not Available No t Available hydrochloro thiazide 25 mg tablet 01/30 completed Not Available Not Available Not Available zolpidem 5 mg tablet 05/11 completed Not Available Not Available Not Available Synthroid 112 mcg tablet TAKE 1 TABLET EVERY MORNING active Not Available Not Available No t Available ergocalcife rol (vitamin D2) 1,250 mcg (50,000 unit) capsule active Not Available Not Available Not Available clobetasol 0.05 % topical ointment active Not Available Not Available Not Available estradiol 0.01% (0.1 mg/gram) vaginal cream 01/30 completed Not Available Not Available Not Available methylpredn isolone 4 mg tablets in a dose pack 01/30 completed Not Available Not Available Not Available albuterol sulfate HFA 90 mcg/actuati on aerosol inhaler active Not Available Not Available Not Available ketoconazol e 2 % topical cream active Not Available Not Available Not Available ondansetron 4 mg disintegrat ing tablet active Not Available Not Available N ot Available losartan 100 mg tablet 01/30 completed Not Available Not Available Not Available fluticasone propionate 50 mcg/actuati on nasal spray,suspe nsion 01/30 completed Not Available Not Available Not Available metformin ER 500 mg tablet,exte nded release 24 hr active Not Available Not Available Not Available clotrimazol e 1 % topical cream 01/30 completed Not Available Not Available Not Available sertraline 50 mg tablet 05/11 completed Not Available Not Available Not Available glycopyrrol ate 2 mg tablet 05/11 completed Not Available Not Available Not Available amoxicillin 875 mg-potassiu m clavulanate 125 mg tablet active Not Available Not Available Not Available moxifloxaci n 0.5 % eye drops active Not Available Not Available Not Available bupivacaine (PF) 0.25 % (2.5 mg/mL) injection solution in office 2023 active lot:3 bu230 25 ex: 10/04 [facility]:5 25064 6830 Not Available Not Available Not Available rosuvastati n 10 mg tablet 01/30 completed Not Available Not Available Not Available rosuvastati n 20 mg tablet 01/30 completed Not Available Not Available Not Available ORTHOVISC 30 mg/2 mL intra-artic ular syringe Inject 2 mL every week by intra-art icular route. 01/30 completed Not Available Not Available Not Available nitrofurant oin monohydrate /macrocryst als 100 mg capsule 01/30 completed Not Available Not Available Not Available duloxetine 30 mg capsule,del ayed release TAKE 2 CAPSULES DAILY active Not Available Not Available No t Available carbamazepi ne ER 200 mg capsule,ext ended release [id number] TAKE 2 CAPSULES TWICE DAILY, MAY TAKE AN EXTRA CAPSULE ONCE DAILY NEEDED active Not Available Not Available No t Available Clindesse 2 % vaginal cream,exten ded release 05/11 completed Not Available Not Available Not Available Enablex 7.5 mg tablet,exte nded release 05/11 completed Not Available Not Available Not Available ibandronate 150 mg tablet TAKE 1 TABLET EVERY 30 DAYS active Not Available Not Available No t Available pregabalin 75 mg capsule 01/30 completed Not Available Not Available Not Available pregabalin 150 mg capsule 01/30 completed Not Available Not Available Not Available chlorhexidi ne gluconate 0.12 % mouthwash active Not Available Not Available No t Available Euflexxa 10 mg/mL (mw 2.4-3.6 million) intra-artic ular syringe Inject 2 mL by intra-art icular route as directed for 21 days, for bilateral knee osteoarth ritis. 2023 active Not Available Not Available Not Avai lable lidocaine (PF) 10 mg/mL (1 %) injection solution In office injection administe red by the provider 11/20 completed [facility]: [phone]- [phone] Not Available Not Available Not Available lidocaine (PF) 5 mg/mL (0.5 %) injection solution Take 30 mg by injection route. 01/30 completed Not Available Not Available Not Available PreviDent 5000 Sensitive 1.1 %-5 % dental paste active Not Available Not Available Not Available hydrochloro thiazide 12.5 mg tablet 01/30 completed Not Available Not Available Not Available Symbicort 160 mcg-4.5 mcg/actuati on HFA aerosol inhaler 05/11 completed Not Available Not Available Not Available Symbicort 80 mcg-4.5 mcg/actuati on HFA aerosol inhaler 05/11 completed Not Available Not Available Not Available diclofenac 1 % topical gel 01/30 completed Not Available Not Available Not Available ropivacaine (PF) 5 mg/mL (0.5 %) injection solution IN OFFICE 01/30 completed [facility] [phone] Not Available Not Available Not Available Dymista 137 mcg-50 mcg/spray nasal spray 05/11 completed Not Available Not Available Not Available Myrbetriq 25 mg tablet,exte nded release TAKE 1 TABLET DAILY active Not Available Not Available No t Available Spiriva Respimat 1.25 mcg/actuati on solution for inhalation 05/11 completed Not Available Not Available Not Available Viberzi 100 mg tablet 01/30 completed Not Available Not Available Not Available Viberzi 75 mg tablet active Not Available Not Available No t Available Gelsyn-3 16.8 mg/2 mL intra-artic ular syringe Inject 2 mL by intra-art icular route as directed for 21 days, for BILATERAL KNEE OSTEOARTH RITIS. 2023 active Not Available Not Available Not Avai lable Shingrix (PF) 50 mcg/0.5 mL intramuscul ar suspension, kit 05/11 completed Not Available Not Available Not Available Wegovy 0.25 mg/0.5 mL subcutaneou s pen injector INJECT 0.25 MG INTO THE SKIN ONCE A WEEK. INDICATIO NS: WEIGHT LOSS active Not Available Not Available No t Available Lagevrio 200 mg capsule (EUA) 01/30 completed Not Available Not Available Not Available Vitals Date Recorded Body height Body mass index (BMI) Body weight Provider Name and Address Organization Details Last Updated DateTime 08/10/2024 149.86 cm 39.2 kg/m2 78331.92 g Madison Perez CNA [place] [facility] 08/10/2024 08:53:14 Date Recorded Body height Body mass index (BMI) Body weight Provider Name and Address Organization Details Last Updated DateTime 01/24/2024 148.59 cm 45.2 kg/m2 91492.32 g Cyn De Souza [employer] [facility] [employer] [facility] 01/24/2024 09:05:01 Date Recorded Body height Body mass index (BMI) Body weight Provider Name and Address Organization Details Last Updated DateTime 01/31/2024 148.59 cm 45.2 kg/m2 81096.32 g Cyn De Souza [employer] [facility] [employer] [facility] 01/31/2024 09:16:17 Date Recorded Body height Body mass index (BMI) Body weight Provider Name and Address Organization Details Last Updated DateTime 02/07/2024 148.59 cm 44.4 kg/m2 37782.95 g Madison Perez CNA [employer] [facility] [employer] [facility] 02/07/2024 09:15:56 Date Recorded Body height Body mass index (BMI) Body weight Provider Name and Address Organization Details Last Updated DateTime 05/12/2024 149.86 cm 41.4 kg/m2 55082.44 g Madison ChrisPRX [employer] [facility] [employer] [facility] 05/12/2024 14:07:53 Social History None recorded. Functional Status Question Answer Note LastModified by Organizat ion Details LastModified Time What is your level of alcohol consumption? Occasional [email or web address] Information not available 01/31/2024 Mental Status None recorded. Family History Relationship Description Onset Age of this Age Resolved Age Notes LastModified by Organization Details LastModified Time Father Heart disease [id number] Not available 09/09/2022 15:40:05 Mother Family history of stroke [email or web address] Not available 02/01 09:12:02 Mother Hypertensive disorder [email or web address] Not available 01/10 09:23:28 Sister Family history of malignant neoplasm [email or web address] Not available 02/01 09:12:02 Sister Hypertensive disorder [email or web address] Not available 01/10 09:23:25 Father Diabetes mellitus [email or web address] Not available 01/10 09:23:49 Medical History Condition Response ARTHRITIS Y ANEMIA/BLOOD DISORDER Y ASTHMA Y OSTEOPOROSIS Y USE OF NSAIDS Y LUNG DISEASE/DISORDER Y HYPERTENSION Y Gynecological HistoryNo gynecological history recorded. Obstetrics History GPAL:G 0 P 0 0 0 0 Past Encounters Encounter ID Performer Location Encounter Start Date Encounter Closed Date Diagnosis/Indication Diagnosis SNOMED-CT Code Diagnosis ICD10 Code Diagnosis Note [id number] BJ Denis [facility] [address] [place] [address] 09/13/2020 00:00:00 09/13/2020 15:12:02 [id number] BJ Denis [facility] [address] [place] [address] 10/25/2020 00:00:00 10/25/2020 14:15:49 [id number] BJ Denis [facility] [address] [place] [address] 10/31/2020 00:00:00 10/31/2020 14:23:09 [id number] BJ Denis [facility] [address] [place] [address] 11/08/2020 00:00:00 11/08/2020 14:28:21 [id number] Ed Reddy MD [facility] [address] [place] [address] 07/31/2021 00:00:00 07/31/2021 09:30:21 [id number] Ed Reddy MD [facility] [address] [place] [address] 11/20/2021 00:00:00 11/20/2021 10:41:34 [id number] Ed Reddy MD [facility] [address] [place] [address] 11/27/2021 00:00:00 11/27/2021 09:28:12 [id number] Ed Reddy MD [facility] [address] [place] [address] 12/04/2021 00:00:00 12/04/2021 09:35:53 [id number] Ed Reddy MD [facility] [address] [place] [address] 06/08/2022 00:00:00 06/08/2022 09:25:47 [id number] Ed Reddy MD [facility] [address] [place] [address] 02/01/2023 09:03:43 02/01/2023 11:08:01 Bilateral osteoarthritis of knees [id number] 74434 M17.0 Pain of bi lateral hip joints 1247824992 9449441 M25.551 M25.552 Bilateral trochanteric bursitis 1136041595 7058141 M70.61 M70.62 [id number] Ed Reddy MD [facility] [address] [place] [address] 02/08/2023 09:13:44 02/08/2023 09:53:51 Bilateral osteoarthritis of knees [id number] 40374 M17.0 Pain of bi lateral hip joints 7052359678 7920889 M25.551 M25.552 Bilateral trochanteric bursitis 6756381246 4233193 M70.61 M70.62 [id number] Ed Reddy MD [facility] [address] [place] [address] 02/15/2023 09:35:28 02/15/2023 10:59:35 Bilateral osteoarthritis of knees [id number] 80541 M17.0 Bilateral trochanteric bursitis 4069476328 8784787 M70.61 M70.62 [id number] Matthew Holloway MD [facility] [address] [place] [address] 06/01/2023 15:21:43 06/01/2023 15:59:26 Bilateral osteoarthritis of knees [id number] 19335 M17.0 [id number] Filipe Merino MD [facility] [address] [place] [address] 08/30/2023 09:23:09 08/30/2023 10:13:16 Bilateral osteoarthritis of knees 7181773276 19528 M17.0 Pain of ri ght shoulder joint 4474842042 8312772 M25.511 Tendinitis of right rotator cuff 5731604803 8373601 M67.818 [id number] Filipe Merino MD [facility] [address] [place] [address] 10/18/2023 09:00:19 10/21/2023 13:55:34 Pain of right shoulder joint 1812231762 0725191 M25.511 Bilateral osteoarthritis of knees 4491061423 56173 M17.0 Tendinitis of rotator cuff tendon 838961174 M67.816 [id number] Filipe Merino MD [facility] [address] [place] [address] 12/13/2023 08:58:07 12/13/2023 09:50:30 Bilateral osteoarthritis of knees 6284671600 45755 M17.0 Pain of bi lateral knee joints 7972907753 12232 M25.561 M25.562 Pain of ri ght shoulder joint 2307289397 0196311 M25.511 Tendinitis of rotator cuff tendon 496357863 M67.953 [id number] Filipe Merino MD [facility] [address] [place] [address] 01/24/2024 08:56:46 01/24/2024 09:29:30 Bilateral osteoarthritis of knees [id number] 04998 M17.0 Osteoarthr itis of knee 616679324 M17.11 [id number] Filipe Merino MD [facility] [address] [place] [address] 01/31/2024 08:58:14 01/31/2024 09:45:39 Bilateral osteoarthritis of knees 3772013481 77014 M17.0 Osteoarthr itis of knee 876617509 M17.11 Pain of bi lateral knee joints 5604495365 62886 M25.561 M25.677 [id number] Filipe Merino MD [facility] [address] [place] [address] 02/07/2024 09:11:14 02/07/2024 09:34:53 Bilateral osteoarthritis of knees 3250967634 65718 M17.0 Pain of bi lateral knee joints 3284066009 78987 M25.561 M25.595 [id number] Filipe Merino MD [facility] [address] [place] [address] 05/12/2024 14:03:45 05/12/2024 15:33:36 Pain of right shoulder joint 8446113138 8983385 M25.511 Tendinitis of rotator cuff tendon 934700056 M67.813 Osteoarthr itis of knee 332483468 M17.12 Pain of le ft knee joint 2879203089 61933 M25.385 [id number] Filipe Merino MD [facility] [address] [place] [address] 08/10/2024 08:48:50 08/10/2024 09:25:07 Pain of left shoulder joint 9659129402 2044168 M25.512 Bilateral shoulder joint pain 8029889092 3934298 M25.511 M25.512 Tendinitis of left rotator cuff 4880264674 1524880 M67.814 Tendinitis of right rotator cuff 2370901762 8583129 M67.813 Health Concerns Section Related Observation LastModified by Organization Detai ls LastModified Time None Recorded Concern Status LastModified by Organization Details LastModified Time None Recorded Advance Directives Directive None Recorded Payers Insurance Date Sequence Insurance Name Policy Number Policy Patrick Covered Member ID Patrick Member ID Guarantor Name 12/18/2024 1 [place] [id number] Alan Santiago [id number] Alan Santiago Notes Date Note Type Note Provider Name and Address Organization Details Recorded Time 01/24/2024 text/html Patient returns for bilateral knee gel shot injections that she brings with her from the specialty pharmacy. She has moderately severe primary osteoarthritis both knees her BMI is too high for total knee arthroplasty she is working on this she is lost 32 lb weight recently. She denies any new problems with her knees she has aching pain worse with activity somewhat relieved by rest denies any effusion swelling no erythema heat or other signs of infection previous cortisone and gel shots have worked well for her she would like to try the gel shots again today. She has tricompartmental moderately severe primary osteoarthritis. BJ Denis [address], [place], [address], [facility] [employer] [facility] [employer] 01/24/2024 09:20:19 01/31/2024 text/html patient returns for Gelsyn 3 injection number 2 both knees. The patient has moderately severe primary osteoarthritis of both knees this is tricompartmental in nature. Today we are reviewed her x-rays in detail, she is due for new x-rays as an update to monitor the progression of the osteoarthritis however she does not have time today we will get those next week. She is working on weight loss in anticipation of future total knee arthroplasty her BMI is still too high for surgery at this point. She is 4' 11 220 lb. Her knee pain is about a 2 on a scale of 1-10 today states the 1st round of shots have started to give her some relief she denies any erythema effusion or signs of infection.A new past medical history sheet was reviewed and signed on intake sheet of today's date drug allergies current medications family social history previous surgical history 10 point review of systems was reviewed and discussed in detail today with the patient. BJ Denis [address], [place], [address], [employer] [facility] 01/31/2024 09:34:02 02/07/2024 text/html Patient returns for Gelsyn 3 injection number 3 both knees. She brings the medication from the specialty pharmacy today. She is getting excellent relief for the 1st 2 rounds of injections denies any problems today. We are getting new x-rays today just as an update on her x-rays it has been more than a year since her last ones. Previous x-rays have shown moderate primary osteoarthritis both knee joints. BJ Denis [address], [place], [address], [facility] [employer] 02/07/2024 09:46:35 05/12/2024 text/html the patient retu rns complaining of left knee pain and right shoulder pain. She has narrowing and moderate degenerative changes in the bilateral tibial femoral articulations and patellofemoral articulations as well. Three months ago she had a gel shot series both knees she states the right knee is feeling good the left knee has started to flare up again. She denies any new specific trauma or injury she would like a cortisone injection in the left knee these typically worked well for her she states she did get excellent relief in the right knee and left knee for 2-3 months however the left knee has now flared up again. Denies any effusion or swelling no erythema heat or other signs of infection. States her pain is about 4 on a scale of 1-10. Cortisone typically works well for her. She also has a chronic problem with her right shoulder previous x-rays did not show any significant findings she has rotator cuff tendonitis and impingement she has pain with overhead motion she has been dealing with this for quite awhile now. Her last shot of cortisone was in October of this year. This helped quite a bit she has been going through physical therapy recently ordered by a different caregiver she has been taking Celebrex trying to work on her exercises on her own at home her therapy just finished but she would like some more therapy she would also like another shot of cortisone denies any new problems with the right shoulder her main symptoms are aching pain that radiates into the upper arm worse with overhead activity or heavy repetitive motion denies any weakness loss of motion numbness or tingling or neck pain. BJ Denis [address] [place] [address], [place] [address], [place], [address], [place] [facility] [employer] [facility] 05/12/2024 15:03:32 08/10/2024 text/html The patient retu rns today for new problem. She has left shoulder pain ongoing for a couple of months now. She denies any specific trauma or injury not sure why her left shoulder started bothering her. She is right handed she has had some previous problems with the right shoulder she is going through a course of physical therapy for that and to treat her neck as well. This is helping quite a bit the right shoulder starting to feel much better. Unfortunately her left shoulder now is bothering her. She denies any loss of motion no weakness but has trouble do anything heavy or repetitive with the left shoulder. She can get her arm all the way overhead and behind her back but extremes of motion also cause some pain. She states the pain is about a 4 on a scale of 1-10 today. She does take Celebrex daily but this is not helping she would rather not take oral steroids she states these have side effects and she is working on weight loss she would like to avoid weight gain she is trying to qualify for total knee arthroplasty which is also an issue for her she uses a cane for support. She is 4 ft 11 in tall 194 lb states her BMI is now just under 40 and she is working to maintain this and still lose some more weight so she can have total knee arthroplasty sometime in the near future. In the meantime her left shoulder keeps her awake at night limits her daily activities she comes in today for initial evaluation treatment. The patient's previous medical history was reviewed with her today in detail. BJ Denis [address] [place] [address], [facility] [address], [place], [address], [place] [facility] [employer] 08/10/2024 09:22:09 OBGyn Episode No OBEpisode recorded.
--- OUTSIDE RECORDS SUMMARY | 2025-01-20 16:03 | XMS_ITS | Encounter Summary ---
Author Organization [facility] Healthcare Address [address] [place] [address] Care Team Providers Care Director Of Email Marketing Name Role Phone Pratibha Jolly MD Primary Care Provider + Asia Tafoya MD Unavailable John Byrd DO Primary Care Provide r Encounter Details Date Type Department Care Team (Late st Contact Info) Description 03/21/2019 Telephone [facility] Speech Therapy [address] [place] [address] Marika Gross, LILY Social History Tobacco Use Types Packs/Day Years Used Date Smoking Tobacco: Never Smokeless Tobacco: Never Alcohol Use Standard Drinks/Week Comments No 0 (1 standard drink = 0.6 oz pur e alcohol) rarely Comments No Sex and Gender Information Value Date Recorded Sex Assigned at Not on file Legal Sex Female 10:45 AM PHYSICIAN Gender Identity Not on file Sexual Orientation Not on file documented as of this encounter Plan of Treatment Not on file documented as of this encounter Visit Diagnoses Not on filedocumented in this encounter Care Teams Director Of Email Marketing Relationship Specialty Start Date End Date Pratibha Jolly MD PCP - General Internal Medicine 02/17/18 08/17/22 John Byrd DO [address] [place] [address] PCP - General Family Medicine 08/18/22 Asia Tafoya MD Consulting Physician Pain Management 01/05/22 documented as of this encounter
--- OUTSIDE RECORDS SUMMARY | 2025-01-20 16:03 | XMS_ITS | Clinical Summary ---
Author Organization [facility] Address [address] [place] [address] Care Team Providers Care Marketing Administrative Assistant Name Role Phone Unavailable Primary Care Provider Unavailabl e Source Comments [facility],non-owned Affiliates and Associated Physician Practices is amultiple site organization consisting of ambulatory clinics and hospital sitesin [place], [place], [place] and [place]. This disclosure is being madepursuant to the Care Everywhere program and may not contain all information available regarding this patient. Last updated 18.[facility] Social History Tobacco Use Types Packs/Day Years Used Date Smoking Tobacco: Never Assessed Comments Unknown Sex and Gender Information Value Date Recorded Sex Assigned at Not on file Legal Sex Female 3:36 PM CDT Gender Identity Not on file Sexual Orientation Not on file Plan of Treatment Health Maintenance Due Date Last Done Comments COLOGUARD (AGES 45-75) - COL ON CA SCREENING 1960 COLON MONITORING 1960 COLONOSCOPY - COLON CA SCREENING 1960 CT COLONOGRAPHY - COLON CA SCREENING 1960 Colorectal Cancer Screening 1960 FIT - COLON CA SCREENING 1960 FLEX SIG - COLON CA SCREENING 1960 LIPID TESTING 1960 MAMMOGRAM 1960 HIV SCREENING 1975 HEPATITIS C SCREENING 03/19/1978 DTAP/TDAP/TD VACCINES (1 - Tdap) 1979 PAP SMEAR 1981 PNEUMOCOCCAL VACCINE 50+ (1 of 1 - PCV) 2010 ZOSTER VACCINE (1 of 2) 2010 COVID-19 VACCINE (1 - 2023-2 5 season) 2024 DEPRESSION SCREENING 07/12/2024 INFLUENZA VACCINE (#1) 2025 Respiratory Syncytial Virus (RSV) Vaccine Pt: or over 60 yrs (1 - 1-dose 75+ series) 2035 HEPATITIS B VACCINE Aged Out No longe r eligible based on patient's age to complete this topic HIB VACCINE Aged Out No longer eligi ble based on patient's age to complete this topic HPV VACCINE Aged Out No longer eligi ble based on patient's age to complete this topic MENINGOCOCCAL (Group B) VACC INE SHARED DECISION-MAKING Aged Out No longer eligibl e based on patient's age to complete this topic MENINGOCOCCAL GROUPS A/C/Y/W VACCINE Aged Out No longer eligible b ased on patient's age to complete this topic Insurance FRANCISCA
--- OUTSIDE RECORDS SUMMARY | 2025-01-20 16:03 | XMS_ITS | Clinical Summary ---
Author Organization [facility] Address [facility] [place] [address] Care Team Providers Care Healthcare Business Analyst Name Role Phone BenyrustyemmaomariMila Ulysses JAQUEZ Primary Care Provider + Allergies Active Allergy Reactions Criticality Noted Date Comments Amoxicillin Hives Low 06/04/2024 Amoxicillin-Pot Clavulanate Hives Low 03/18/2022 Fruit Swelling 06/04/2024 LIPS Kiwi Extract Swelling High 01/03/2015 Lip swelling Other reaction(s): Hives Kiwi Fruit Swelling 06/04/2024 LIPS Levopropoxyphene Napsylate Hives Low Mangifera Indica Swelling High 01/03/2015 Lip swelling Black Flavoring Agent (Non-Screening) Hives Low 03/18/2022 Oseltamivir Itching,Other (see comment),Hives Medium 08/29/2019 Other reaction(s): Hives Phosphate Hives Low 03/18/2022 Propoxyphene Nausea and Vomiting 12/20/2020 Topiramate Other (see comment) Low 08/21/2015 Constipation & Insomnia Other reaction(s): Hives Tramadol Dizziness,Other (see comment) Low 10/07/2020 Wasp Venom Swelling High 06/04/2024 Wasp Venom Protein Swelling Medium 09/03/2014 Medications EPINEPHrine 0.3 MG/0.3ML injection INJECT INTRAMUSCULARLY DIRECTED. Active Eluxadoline (VIBERZI) 100 MG Tab Viberzi 100 mg tablet Active clobetasol 0.05 % ointment clobetasol 0.05 % topical ointment Active Calcium Carb-Cholecalcif oriana (CALCIUM CARBONATE-VITAMI N D3 OR) Active carBAMazepine ER (CARBATROL) 200 MG 12 hr capsule Take 2 capsules (400 mg total) by mouth 2 (two) times daily. Active albuterol sulfate HFA 108 (90 Base) MCG/ACT inhaler albuterol sulfate HFA 90 mcg/actuation aerosol inhaler Active hydrALAZINE (APRESOLINE) 50 MG tablet Take 1 tablet (50 mg total) by mouth 3 (three) times daily. Active ketoconazole (NIZORAL) 2 % cream Active PREVIDENT 5000 SENSITIVE 1.1-5 % Gel Active Vincent-3 Fatty Acids (FISH OIL) 500 MG capsule Take 500 mg by mouth daily. Active ibandronate (BONIVA) 150 MG tabletIndication s:Age-related osteoporosis without current pathological fracture TAKE 1 TABLET EVERY 30 DAYS 3 tablet 3 024 Active baclofen (LIORESAL) 10 MG tablet 024 Active ondansetron (ZOFRAN-ODT) 4 MG disintegrating tabletIndication s:Medication side effect Take 1 tablet (4 mg total) by mouth every 8 (eight) hours as needed for Nausea. 30 tablet 024 Active DULoxetine (CYMBALTA) 30 MG capsuleIndicatio ns:Moderate major depression (CMS/HCC) TAKE 2 CAPSULES DAILY 180 capsule 1 024 Active Fbegrftx-Ihb-Px- FA ( OR) Act gina NYSTOP powderIndication s:Tinea corporis APPLY TO THE AFFECTED AREA THREE TIMES DAILY 60 g 024 Active amLODIPine (NORVASC) 5 MG tabletIndication s:Primary hypertension TAKE 1 TABLET DAILY 90 tablet 1 025 Active labetalol (NORMODYNE) 200 MG tabletIndication s:Primary hypertension TAKE 1 TABLET TWICE A DAY 180 tablet 1 025 Active celecoxib (CELEBREX) 100 MG capsule Take 1 capsule (100 mg total) by mouth daily. Active aspirin 81 MG chewable tablet Chew 1 tablet (81 mg total) by mouth daily. 025 2025 Active Acetaminophen 500 MG Cap Take 1,000 mg by mouth 4 (four) times daily. 025 Active atorvastatin (LIPITOR) 40 MG tabletIndication s:Primary hypertension Take 1 tablet (40 mg total) by mouth daily. 90 tablet 3 025 Active hydroCHLOROthiaz daniel (HYDRODIURIL) 25 MG tabletIndication s:Primary hypertension Take 1 tablet (25 mg total) by mouth every morning. 90 tablet 3 025 Active esomeprazole (NEXIUM) 40 MG capsuleIndicatio ns:Gastroesophag eal reflux disease without esophagitis TAKE 1 CAPSULE TWICE DAILY 180 capsule 025 Active levothyroxine (SYNTHROID) 112 MCG tabletIndication s:Hypothyroidism , unspecified type TAKE 1 TABLET EVERY MORNING 90 tablet 025 Active traZODone (DESYREL) 50 MG tabletIndication s:Moderate major depression (CMS/HCC) TAKE 2 TABLETS EVERY NIGHT AT BEDTIME 180 tablet 1 025 Active mirabegron ER (MYRBETRIQ) 50 MG 24 hr tabletIndication s:Overflow incontinence of urine Take 1 tablet (50 mg total) by mouth daily. 90 tablet 1 025 Active semaglutide-weig ht management (WEGOVY) 0.25 mg/dose injection (PEN)Indications :Weight Loss INJECT 0.25 MG INTO THE SKIN ONCE A WEEK. INDICATIONS: WEIGHT LOSS 6 mL 025 Active Na sulfate-K sulfate-Mg sulfate (SUPREP BOWEL PREP KIT) 17.5-3.13-1.6 GM/177ML SolutionIndicati ons:Incontinence of feces, unspecified fecal incontinence type,Diarrhea, unspecified type,History of adenomatous and serrated colon polyps Take 177 mLs by mouth every 12 (twelve) hours. Per GI instructions 354 mL 025 Active lidocaine (LIDODERM) 5 %Indications:Spi nal cord infarction (CMS/HCC HHS/HCC) Place 1 patch onto the skin daily. 90 patch 1 025 2024 Discontinued( Pt. elected to discontinue med) Active Problems Problem Noted Date Diagnosed Date Diarrhea, unspecified type 01/18/2025 History of adenomatous and serrated colon polyps 01/18/2025 Left facial pain 11/02/2024 Incontinence of feces, unspecified fecal inconti nence type 11/02/2024 Spinal cord infarction ([facility]/HCC HHS/HCC) 025 Overflow incontinence of urine 11/02/2024 Class 3 severe obesity due t o excess calories with serious comorbidity and body mass index (BMI) of 50.0 to 59.9 in adult 03/24/2024 Arthralgia of both knees 12/13/2023 Rotator cuff tendinitis 10/18/2023 Pain of both hip joints 02/01/2023 Trochanteric bursitis of both hips 02/01/2023 Osteoarthritis of both knees 01/15/2023 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 Obstructive sleep apnea syndrome 12/18/2022 GERD (gastroesophageal reflux disease) FESTUS positive 12/18/2022 Lichen planus 12/18/2022 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 08/14/2022 Osteoporosis 07/17/2022 Irritable bowel syndrome 07/17/2022 Hyperlipidemia, unspecified hyperlipidemia type 07/17/2022 Osteoarthritis of knee 11/20/2021 PVD (posterior vitreous detachment), bilateral 0 11/10/2021 Overview (07/17/2022): Last Assessment & Plan: Urgent visit today for new floater right eye (OD) X 2 days -retina flat and attached both eyes (OU) -pt ed s/s retinal detachment (RD); RTC nishant if noted -otherwise rtc as scheduled with RW Pseudophakia of both eyes 08/10/2020 Overview (07/17/2022): Last Assessment & Plan: POW#3 sp phaco/IOL right eye (OD); Doing well; cont pred/ket per taper schedule right eye (OD) left eye (OS) with mild PCO; follow Moderate major depression 10/30/2019 History of asthma 06/13/2019 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 MRI of the brain, Chuck level, Lyme antibody titers have all been unrevealing. Supportive care is appropriate at this time. 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 cpm with celluvisc 5 times per day. Add pm ramone. Keep f/u with Dr. Garcia as scheduled. 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 04/16/2016 Chronic low back pain 04/16/2016 Inflammation of sacroiliac joint 11/15/2015 Spondylosis of cervical spine without myelopathy 04/16/2015 Herniation of intervertebral disc of cervical re gion 08/16/2014 Stress incontinence in female 07/01/2010 Hypertension 09/15/2001 Hypothyroidism 06/07/2001 Asthma ([facility]) 06/10/2000 Encounters Date Type Department Care Team Description 01/18/2025 11:20 AM CDT Office Visit [facility]pecialty Care - [address] [place] [phone] Mila Camejo DO Barnes, Lawrence J, PA-C Incontinence; Consult For Colonoscopy 01/18/2025 Orders Only [facility] - [facility] [address] [place] [address] Ed Mi MD 01/18/2025 Travel 11/15/2024 Scan Giant Swarm HEALTH INFO SRVCS Scanned, [facility] 11/02/2024 8:40 AM CDT Office Visit [facility] Family & Internal Medicine [address] [address] Luchtefeld, Mila P, DO Neurologic Problem (The patient presents for follow up. The patient states she is confused with her medication list and what to take. ) 11/02/2024 Travel from Last 3 Months Immunizations Immunization Administration Dates Next Due Arexvy Respiratory Syncytial Virus (RSV, adjuvanted) 0.5 mL, PF 05/30/2023 Flublok (Quadrivalent) 03/27/2019 Flulaval Quad (Multi-Dose Vial) 04/19/2017 Fluzone (IIV3, Trivalent, 0. 5 ML Prefilled Syringe) 04/11/2024 Influenza (Generic) 05/01/2020, 9,04/13/2017,2015 Influenza Adult (Generic) 05/30/2023,10/2021,04/24/2022,2020,04/26/2018,04/19/2017 PFIZER COVID-19 (12+) MRNA, LNP-S, PF, ASHELY-SUCROSE, 30 MCG/0.3 ML (COMIRNATY) 04/24/2024,07/02/2023 PFIZER COVID-19 (ORIGINAL FORMULATION, PURPLE CAP) mRNA, LNP-S, PF, 30 MCG/0.3 ML DOSE 05/15/2022,05/30/2021,10/02/2020,2020 Pneumococcal (Pneumovax 23) 05/30/2014 Pneumococcal (Prevnar 20) 06/08/2022 Shingrix 10/11/2018,08/15/2018 Tdap (Generic) 07/17/2014 Zoster (Zostavax) 98247 Unt/0.65Ml 08/15/2018, Family History Medical History Relation Comments Depression Father Diabetes Father Prostate Cancer Father Arthritis Mother COPD Mother Hypertension Mother Stroke Mother Breast Cancer Sister 1 Breast Cancer Sister 2 new double maste ctomy Relation Status Comments Father Mother Sister 1 Sister 2 Social History Tobacco Use Types Packs/Day Years Used Date Smoking Tobacco: Never Passive Smoke Exposure: Never Smokeless Tobacco: Never Tobacco Cessation:Counseling Given: Yes Alcohol Use Standard Drinks/Week Comments Not Currently 0 (1 standard drink = 0.6 oz pur e alcohol) rarely PHQ-2 Answer Date Recorded Patient Health Questionnaire-2 Score 0 09/19/2024 Comments No Sex and Gender Information Value Date Recorded Sex Assigned at Female 08/22/2024 10: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 Legal Sex Female 7:06 PM CDT Gender Identity Female 09/19/2024 11:04 AM CDT Sexual Orientation Not on file Last Filed Vital Signs Vital Sign Reading Time Taken Comments Blood Pressure 138/88 01/18/2025 11:52 AM CDT Pulse 60 01/18/2025 11:52 AM CDT Temperature 37 C (98.6 F) 01/18/2025 11:52 AM CDT Respiratory Rate 18 01/18/2025 11:52 AM CDT Oxygen Saturation 98% 01/18/2025 11:52 AM CDT Inhaled Oxygen Concentration - - Weight 87.1 kg (192 lb) 01/18/2025 11:52 AM CDT Height 147.3 cm (4' 10) 01/18/2025 11:52 AM CDT Body Mass Index 40.13 01/18/2025 11:52 AM CDT Plan of Treatment Upcoming Encounters Date Type Department Care Team (Latest Contact Info) Description 01/23/2025 11:40 AM CDT Appointment [facility] Mammography [address] [place] [address] Mila Camejo DO [address] [place] [address] 02/09/2025 11:20 AM CDT Office Visit [facility] Family & Internal Medicine - [place] [address] [place] [address] Mila Camejo DO [address] [place] [address] 03/28/2025 3:30 PM CDT Hospital Encounter [facility] [place] [address] Ed Mi MD [address] [address] 03/28/2025 3:30 PM CDT - 03/28/2025 4:00 PM CDT Surgery [facility] [address] Ed Mi MD 3 [facility] [place] [address] [place] [address] COLONOSCOPY DIAGNOSTIC WITH/WITHOUT SPECIMEN BRUSH/WASH Scheduled Procedures Name Priority Associated Diagnoses Date/Ti me COLONOSCOPY DIAGNOSTIC WITH/WITHOUT SPECIMEN BRUSH/WASH Incontinence of feces, unspecified fecal incontinence type Diarrhea, unspecified type History of adenomatous and serrated colon polyps 03/28/2025 3:30 PM CDT Health Maintenance Due Date Last Done Comments Annual Physical 1963 Colorectal Cancer Screening Colonoscopy (10 Years) 12/21/2023 12/20/2020 DTaP, Tdap and Td Vaccines (2 - Td or Tdap) 07/17/2024 07/17/2014 Mammogram Screening 09/19/2024 09/20/2023, 06/05/2022, 05/23/2021, Additional history exists Zoster Vaccines Completed 10/11/2018, 10/2018, 08/15/2018, Additional history exists Pneumococcal Vaccine: 50+ Years Completed 06/08/2022, 05/30/2014 Hepatitis C Completed 12/18/2022 RSV Immunization or 60+ Years Completed 05/30/2023 COVID-19 Vaccine Completed 04/24/2024, , 05/15/2022, Additional history exists PHQ-2 (Physician [place]) Completed 09/19/2024 Meningococcal B Vaccine Aged Out No l onger eligible based on patient's age to complete this topic Meningococcal Vaccine Aged Out No glenda ajay eligible based on patient's age to complete this topic RSV Immunizations Under 20 Months Aged Out No longer eligible based on patient's age to complete this topic Goals Goal Patient Goal Type Associated Problems Recent Progress Patient-Stated? Author Autogenera afia Goal Care Plan Autogenerated Problem No Brandee Cheatham [facility] Implanted Type Area Electric Distribution Checker Device Identifier Shelf Expiration Date Model / Serial / Lot 36 Resoluition Clip Implanted:Qty: 1 on 12/20/2020 by Bernabe Dupree MD at [facility] N/A: Abdomen [employer] clip 06/10/2023 [id number] / / [id number] Procedures Procedure Name Priority Date/Time Associated Diagnosis Comments MG SCREENING W VERONICA CLINT DIGI Routine 09/20/2023 8:55 AM CDT Screening mammogram, encounter for HEPATITIS C ANTIBODY Routine 12/18/2022 10:12 AM CDT Age-related osteoporosis without current pathological fracture Screening for lipid disorders Screening for endocrine, metabolic and immunity disorder Need for hepatitis C screening test Annual physical exam from Last 3 Months or Most Recently Relevant to Health Maintenance Results * MG SCREENING W VERONICA CLINT DIGI (09/20/2023 8:55 AM CDT) Anatomical Region Laterality Modality Breast Bilateral Mammography 09/20/2023 10:2 1 AM CDT Narrative 09/20/2023 10:22 AM CDT Examination: Screening bilateral mammogram Exam Date/Time: 09/20/2023 8:33 AM Clinical history: No current complaints. Comparison: 06/05/2022 Technique: Digital screening mammography of both breasts was performed. Breast tomosynthesis acquisitions were obtained and reviewed. This study was read with the assistance of a computer-aided detection system. Tissue density: There are scattered areas of fibroglandular density. Findings: No suspicious masses, malignant appearing calcifications, skin thickening or other abnormalities are present. No significant change from the prior exam. IMPRESSION: No suspicious mammographic findings. Recommendation: 1. Routine Screening, Bilateral Assessment: ACR BI-RADS 2 - BENIGN FINDING(S) Ordered By: MILA CAMEJO Interpreted By: Juan Bedoya, 09/20/2023 10:21 AM us Mila Camejo DO MAMMO Final Re sult * HEPATITIS C ANTIBODY (12/18/2022 10:12 AM CDT) HEPATITIS C AB NON-REACTI VE NON-REACT GINA 12/18/2022 7:49 PM CDT [facility] Comment: ANTIBODIES TO HCV NOT DETECTED. DOES NOT EXCLUDE THE POSSIBILITY OF EXPOSURE TO HCV. 12/18/2022 10:1 2 AM CDT Mila Camejo DO LABORATORY Final Re sult [facility] [address] [place] [address], [id number] from Last 3 Months or Most Recently Relevant to Health Maintenance Additional Health Concerns Active Problems Noted Date Diagnosed Date Autogenerated Problem 01/18/2025 Insurance [facility] Care Teams Healthcare Business Analyst Relationship Specialty Start Date End Date Mila Camejo DO [address] [place] [id number] PCP - General FAMILY PRACTICE 07/17/22
--- OUTSIDE RECORDS SUMMARY | 2025-01-20 16:03 | XMS_ITS | Encounter Summary ---
Author Organization [facility] Address [address] [place] [address] [place] [address] Care Team Providers Care Tinware Lithograph Press Operator Name Role Phone Unavailable Primary Care Provider Unavailabl e Encounter Details Date Type Department Care Team (Late st Contact Info) Description 01/19/2024 Lab Requisition [facility] - DermPath Lab [address] [facility] [facility] [place] [address] Olimpia David MD [address] [facility] [address] [place] [address] Social History Tobacco Use Types Packs/Day Years Used Date Smoking Tobacco: Never Assessed Comments Unknown Sex and Gender Information Value Date Recorded Sex Assigned at Not on file Legal Sex Female 3:36 PM CDT Gender Identity Not on file Sexual Orientation Not on file documented as of this encounter Plan of Treatment Not on file documented as of this encounter Procedures Procedure Name Priority Date/Time Associated Diagnosis Comments DERMATOPATHOLOGY Routine 01/19/2024 3:21 PM CDT documented in this encounter Results * DERMATOPATHOLOGY (01/19/2024 3:21 PM CDT) Case Report Dermatopathology Report Case: [id number] Authorizing Provider: Olimpia David MD Collected: 01/19/2024 03:21 PM Ordering Location: [facility] - Received: 01/21/2024 07:27 AM DermPath Lab Pathologist: Cari Claire MD Specimen: Skin, beneath left breast 2:30 PM CDT DERMATOPATHOLOGY LABORATORY Final Diagnosis Specimen A. SKIN, beneath left breast: SEBORRHEIC KERATOSIS, INFLAMED (L82.0) 2:30 PM CDT DERMATOPATHOLOGY LABORATORY at 1430 CDT Clinical History R/O Nevus, irritated 4 2:30 PM CDT DERMATOPATHOLOGY LABORATORY Gross Description Specimen A: Received is one formalin filled container labeled with the patient's name and designated beneath left breast. The specimen consists of a shave biopsy measuring 10x7x4 mm. Jar 0. 4 2:30 PM CDT DERMATOPATHOLOGY LABORATORY Microscopic Description Specimen A. SKIN, beneath left breast: There is hyperkeratosis, parakeratosis, papillomatosis, and acanthosis of the epidermis. There is a lymphohistiocytic infiltrate within the papillary dermis that is focally lichenoid. 4 2:30 PM CDT DERMATOPATHOLOGY LABORATORY Disclaimer An external and internal positive and negative controls are appropriate for the histochemical, immunohistochemical and immunofluorescence stain(s) in this case (if any), except where stated explicitly. The performance characteristics of the stain(s) cited in this report were developed and its performance characteristic determined by the Dermatopathology Laboratory at [facility], directed by Dr. Maegan Tidwell. These tests need not be, and therefore are not, approved by the [place] Food and Drug Administration. The tests are used for clinical purposes. Billing Codes Specimen Charges Stain Charges 60391 1 4 2:30 PM CDT DERMATOPATHOLOGY LABORATORY Embedded Images 4 2:30 PM CDT DERMATOPATHOLOGY LABORATORY Pathology/Cytolo gy TISSUE SPECIMEN FROM SKIN / Unknown 01/19/2024 3:21 PM CDT 01/21/2024 7:27 AM CDT Olimpia David MD LAB - PATHOLOGY/CYTOLOGY OR DERABLES Final Result DERMATOPATHOLOGY LABORATORY [facility] - Department of Dermatology [address], [address] [phone] documented in this encounter Visit Diagnoses Not on filedocumented in this encounter
--- OUTSIDE RECORDS SUMMARY | 2025-01-20 16:03 | XMS_ITS | Encounter Summary ---
Author Organization [facility] Address [address] [place] [address] Phone Care Team Providers Care Enrobing Machine Feeder Name Role Phone Asia Tafoya MD Unavailable John Byrd DO Primary Care Provide r Encounter Details Date Type Department Care Team (Late st Contact Info) Description 01/16/2025 Telephone 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 Has anyone called her. I don't think she is a relative of any family member. So, we will not be setting up an office visit with you? documented in this encounter Plan of Treatment [...] on filedocumented in this encounter Care Teams Enrobing Machine Feeder Relationship Specialty Start Date End Date John Byrd DO [address] [place] [address] PCP - General Family Medicine 08/18/22 Asia Tafoya MD Consulting Physician Pain Management 01/05/22 documented as of this encounter
--- OUTSIDE RECORDS SUMMARY | 2025-01-20 16:03 | XMS_ITS | Encounter Summary ---
Author Organization [facility] Address [address] [place] [address] Care Team Providers Care Crime Scene Evidence Technician Name Role Phone John Byrd DO Primary Care Provider + Encounter Details Date Type Department Care Team (Late st Contact Info) Description 01/06/2023 MyChart Message Enc [facility] Medical [facility] - [facility] [address] [place], [place] [phone] [employer], [facility] Provider Air Quality Message Social History Tobacco Use Types Packs/Day Years Used Date Smoking Tobacco: Never Passive Smoke Exposure: Never Smokeless Tobacco: Never Alcohol Use Standard Drinks/Week Comments Not Currently 0 (1 standard drink = 0.6 oz pur e alcohol) rarely PHQ-2 Answer Date Recorded Patient Health Questionnaire-2 Score 4 07/17/2022 Comments No Sex and Gender Information Value Date Recorded Sex Assigned at Female 08/22/2024 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 No / Unsure 12/18/2022 8:22 AM CDT documented as of this encounter Plan of Treatment Upcoming Encounters Date Type Department Care Team (Latest Contact Info) Description 01/23/2025 11:40 AM CDT Appointment [facility] Mammography [address] [place], [place] [phone] John Byrd DO [address] [place] [address] 02/09/2025 11:20 AM CDT Office Visit [facility] Family & Internal Medicine - [place] [address] [place] [address] John Byrd DO [address] [place] [address] 03/28/2025 3:30 PM CDT Hospital Encounter [facility] [place] [address] Ed Mi MD [address] [address] 03/28/2025 3:30 PM CDT - 03/28/2025 4:00 PM CDT Surgery [facility] [place]o/[place] [address] Ed Mi MD [address] [address] COLONOSCOPY DIAGNOSTIC WITH/WITHOUT SPECIMEN BRUSH/WASH Scheduled Procedures Name Priority Associated Diagnoses Date/Ti me COLONOSCOPY DIAGNOSTIC WITH/WITHOUT SPECIMEN BRUSH/WASH Incontinence of feces, unspecified fecal incontinence type Diarrhea, unspecified type History of adenomatous and serrated colon polyps 03/28/2025 3:30 PM CDT documented as of this encounter Visit Diagnoses Not on filedocumented in this encounter Care Teams Crime Scene Evidence Technician Relationship Specialty Start Date End Date John Byrd DO [address] [place] [address] PCP - General FAMILY PRACTICE 07/17/22 documented as of this encounter
[2025-01-20 16:05] VITALS: BP 169/106; PULSE 60; RESP 16; TEMP 36.4; O2SAT 99
--- NOTE | 2025-01-20 16:27 | ED.FALL ---
HPI - Fall General Chief Complaint: Fall Stated Complaint: fall Time Seen by Provider: 01/20/25 16:08 Source: patient, RN notes reviewed and other (neighbor) Mode of arrival: ambulatory Limitations: no limitations History of Present Illness HPI Narrative: 56 y/o WF in the ED s/p fall today. Pt states she went out to get her [employer] packages. As she was coming back up the stairs, her foot caught the step and she fell forward into a plastic planting pot and her left cheek on a stone decoration. 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 Endorses pain to forehead and left face, has taken nothing for the pain. Patient sitting in a room with ice pack to affected areas. Pt denies LOC, blood thinner usage aside from 81mg ASA, dizziness, vision issues, worsening weakness, CP, SOB, left sided pain including shoulder, FA, and hand. Related Data Home Medications ?Medication ?Instructions ?Recorded ?Confirmed ?Last Taken ?Type albuterol sulfate 90 mcg/actuation 2 puff inhalation Q4H PRN 06/22/19 06/04/24 Unknown History aerosol inhaler (ProAir HFA) Shortness Of Breath Or Wheezing baclofen 10 mg tablet 10 mg PO HS 06/22/19 06/04/24 Unknown History celecoxib 200 mg capsule (Celebrex) 200 mg PO DAILY 06/22/19 06/04/24 Unknown History clobetasol 0.05 % topical ointment 1 applic topical BID 06/22/19 06/04/24 Unknown History epinephrine 0.1 mg/mL injection 0.1 mg IM Q10M PRN Allergic 06/22/19 06/04/24 Unknown History syringe Reaction esomeprazole magnesium 40 mg 40 mg PO BID 06/22/19 06/04/24 Unknown History capsule,delayed release (Nexium) labetalol 200 mg tablet 200 mg PO Q12H 06/22/19 06/04/24 Unknown History tacrolimus 0.1 % topical ointment 1 applic topical BID 06/22/19 06/04/24 Unknown History carbamazepine 200 mg 400 mg PO Q12H 01/21/22 06/04/24 Unknown History capsule,extended release [id number] mirabegron 25 mg tablet,extended 25 mg PO DAILY 01/21/22 06/04/24 Unknown History release 24 hr (Myrbetriq) duloxetine 30 mg capsule,delayed 60 mg PO HS 04/07/24 06/04/24 Unknown History release eluxadoline 100 mg tablet (Viberzi) 100 mg PO BID 04/07/24 06/04/24 Unknown History ibandronate 150 mg tablet 150 mg PO MONTHLY 04/07/24 06/04/24 Unknown History levothyroxine 100 mcg tablet 112 mcg PO DAILY 04/07/24 06/04/24 Unknown History (Synthroid) trazodone 50 mg tablet 100 mg PO HS 04/07/24 06/04/24 Unknown History Allergies Allergy/AdvReac Type Severity Reaction Status Date / Time amoxicillin Allergy Mild Hives Verified 01/20/25 16:09 levopropoxyphene Allergy Mild Hives Verified 01/20/25 16:09 kiwi Allergy Unknown Swelling Verified 01/20/25 16:09 oseltamivir (From Tamiflu) Allergy Hives Verified 01/20/25 16:09 tramadol Allergy Other Verified 01/20/25 16:09 propoxyphene AdvReac Unknown Nausea and Verified 01/20/25 16:09 Vomiting Wasp Allergy Severe Swelling Uncoded 01/20/25 16:09 Black Allergy Unknown Swelling Uncoded 01/20/25 16:09 Review of Systems Review of Systems: CONSTITUTIONAL: Denies fever, chills, or sweats. EYES: Denies visual changes, redness, or discharge. ENT: Denies rhinorrhea, congestion, sore throat, or otalgia. CARDIOVASCULAR: Denies chest pain, palpitations, or edema. RESPIRATORY: Denies cough or dyspnea. GASTROINTESTINAL: Denies abdominal pain, nausea, vomiting, or diarrhea. GENITOURINARY: Denies dysuria or hematuria. SKIN: Denies rash or itching. MUSCULOSKELETAL: Denies back pain, joint pain, or myalgia. NEUROLOGIC: Endorses headache. Denies numbness, or worsening weakness. PSYCHIATRIC: Denies anxiety or depression. 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, lumbar region Chronic cough FESTUS positive Berg's palsy Hemorrhoid Surgical History Surgical History H/O: hysterectomy History of carpal tunnel release Family History Family History Grandparent Cerebrovascular accident Family history of malignant neoplasm Family history of malignant neoplasm of breast Sibling Family history of malignant neoplasm of breast Patient's sister is in good health Family history of malignant neoplasm of breast in first degree relative Father Family history of cardiovascular disease Family history of arthritis Malignant neoplasm of prostate Family history of congestive heart failure Mother Family history of malignant neoplasm Family history of emphysema Hypertension Family history of arthritis Family history of chronic obstructive pulmonary disease Social History Social History Smoking status: Never smoker Alcohol intake: never Substance use: never Do You Feel Safe in your Home?: Yes Lack of Transportation: No Lack of Food: Never True Current Housing: I Have Housing Concerned About Future Housing: No Difficulty Paying Gas/Electric Bills: No Difficulty Paying for Meds: No Currently Unemployed: No Education: High School Diploma/GED Difficulty w/ Childcare or Family Care: No Spiritual care concerns: No Exam Narrative: GENERAL: Well-appearing, well-nourished, and in no acute distress. HEAD: Normocephalic. Pt has erythema and swelling to left forehead and cheek. Abrasion to left cheek, no bleeding noted. EYES: PERRLA and EOMI. ENT: Nares clear, no rhinorrhea or epistaxis. Mucous membranes moist. NECK: Supple. CHEST: Clear to auscultation. No respiratory distress. HEART: Regular rate and rhythm. No murmur heard. Normal peripheral pulses. ABDOMEN: Soft, nontender, nondistended, normal active bowel sounds. EXTREMITIES: Normal range of motion. No edema. Pt able to stand w/o issue. SKIN: Warm, dry, no rash. NEURO: No focal deficits. Alert and oriented x3. Left sided facial droop noted PSYCH: Normal mood and affect. Course Vital Signs Vital signs: Vital Signs Temperature 36.4 C 01/20/25 16:05 Pulse Rate 60 01/20/25 16:05 Respiratory Rate 16 01/20/25 16:05 Blood Pressure 169/106 H 01/20/25 16:05 Pulse Oximetry 99 01/20/25 16:05 Oxygen Delivery Room Air 01/20/25 16:05 Temperature 36.4 C 01/20/25 16:05 Pulse Rate 60 01/20/25 16:05 Respiratory Rate 16 01/20/25 16:05 Blood Pressure 169/106 H 01/20/25 16:05 Pulse Oximetry 99 01/20/25 16:05 Oxygen Delivery Room Air 01/20/25 16:05 MDM - Fall MDM Narrative Medical decision making narrative: No dizziness, chest pain, weakness or other rationale for labs found. Cat scans of head and face show no fracture per Radiology read. Patient given Tylenol in the emergency room to address pain, pain controlled on reassessment. Patient be released home with follow-up by primary care doctor. Differential Diagnosis Differential diagnosis: Likely syncope and dislocation of shoulder region Medical Records Attestation: I reviewed the patient's medical records. Imaging Data Radiologist's impression: ITS Impressions Head CT 01/20/25 17:22 IMPRESSION: No acute intracranial findings. Face CT 01/20/25 18:06 IMPRESSION: No facial fracture. Discharge Plan Discharge Clinical Impression: Fall, Head injury Patient Disposition: Home Condition: Stable Instructions: Antibiotic Form, Fall Prevention for Older Adults (ED), Head Injury (ED) Additional Instructions: Take Tylenol 650 mg to a 1000 mg 3 times a day, not to exceed 4000 mg a day. Patient to follow-up with primary care doctor a week. Patient Language: Tristanian Prescriptions: No Action levothyroxine [Synthroid] 100 mcg tablet 112 mcg PO DAILY trazodone 50 mg tablet 100 mg PO HS cephalexin 500 mg capsule 500 mg PO Q6H 7 Days Qty: 28 0RF amlodipine 10 mg tablet 5 mg PO DAILY 30 Days Qty: 15 0RF hydrochlorothiazide 50 mg tablet 50 mg PO DAILY Qty: 90 2RF carbamazepine 200 mg Capsule, Er Multiphase 12 Hr 400 mg PO Q12H mirabegron [Myrbetriq] 25 mg Tablet Extended Release 24 Hr 25 mg PO DAILY duloxetine 30 mg capsule,delayed release(DR/EC) 60 mg PO HS Viberzi 100 mg tablet 100 mg PO BID Rx Instructions: must administer with a meal/food ibandronate 150 mg tablet 150 mg PO MONTHLY fluticasone propionate [Flonase Allergy Relief] 50 mcg/actuation spray,suspension 1 spray intranasal Q12H Qty: 16 0RF Rx Instructions: administer into each nostril baclofen 10 mg tablet 10 mg PO HS celecoxib [Celebrex] 200 mg capsule 200 mg PO DAILY clobetasol 0.05 % ointment 1 applic TOPICAL BID Rx Instructions: To left face epinephrine 0.1 mg/mL syringe 0.1 mg IM Q10M PRN (Reason: Allergic Reaction) labetalol 200 mg tablet 200 mg PO Q12H esomeprazole magnesium [Nexium] 40 mg capsule,delayed release(DR/EC) 40 mg PO BID albuterol sulfate [ProAir HFA] 90 mcg/actuation HFA aerosol inhaler 2 puff INHALATION Q4H PRN (Reason: Shortness Of Breath Or Wheezing) tacrolimus 0.1 % ointment 1 applic TOPICAL BID Rx Instructions: Apply to periarea hydralazine 50 mg tablet See Rx Instructions .ROUTE .COMPLEX Qty: 270 2RF Dose Instruction: TAKE 1 TABLET 3 TIMES A DAY Rx Instructions: TAKE 1 TABLET 3 TIMES A DAY Follow-up/Referrals: Carson,DO John [Primary Care Provider] - 1 Week
--- OUTSIDE RECORDS SUMMARY | 2025-01-20 16:42 | XMS_ITS | Encounter Summary ---
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 documented as of this encounter Visit Diagnoses Not on filedocumented in this encounter Care Teams Dog Raiser Relationship Specialty Start Date End Date Pratibha Jolly MD PCP - General Internal Medicine 02/17/18 08/17/22 John Byrd DO [address] [place] [id number] PCP - General Family Medicine 08/18/22 Asia Tafoya MD Consulting Physician Pain Management 01/05/22 documented as of this encounter
--- OUTSIDE RECORDS SUMMARY | 2025-01-20 16:42 | XMS_ITS | Clinical Summary ---
Author Organization [facility] Address [address] [place] [address] Care Team Providers Care Fire Hydrant Operator Name Role Phone Asia Tafoya MD Unavailable [...] Tramadol Dizziness,Other (See comments) Low 10/07/2020 Allergen Ue-Bwimv-Rlan Protein Swelling Medium 09/03/2014 Medications PROAIR HFA [...] mcg tablet Take 112 mcg by mouth dental laboratory technology teacher before breakfast Active diclofenac sodium (VOLTAREN) 1 [...] 08/30/2024 Assessment & Plan (09/01/2024 9:28 AM CNC OPERATOR MACHINIST): Patient has not been able to have a BM for the past several day -> Miralax, Senna, Mag citrate x1 given -Lactulose 08/30 --> multiple bowel movements subsequently -RESOLVED Spinal cord stroke 08/26/2024 Assessment & Plan (09/01/2024 9:29 AM CNC OPERATOR MACHINIST): Presented to OSH with acute low back [...] 08/26/2024 Assessment & Plan (08/28/2024 6:12 PM CNC OPERATOR MACHINIST): - Hole home mirabegron while galan in place Depression, major, recurrent 08/26/2024 Assessment & Plan (08/26/2024 2:31 AM CNC OPERATOR MACHINIST): Cont cymbalta and trazodone Posterior capsular opacification, [...] 01/10/2019 Assessment & Plan (08/28/2024 6:11 PM CNC OPERATOR MACHINIST): Continue home baclofen,duloxetine, and carbamazepine Assessment & [...] 01/03/2015 Assessment & Plan (08/28/2024 6:11 PM CNC OPERATOR MACHINIST): Continue home synthroid Facial pain 12/04/2014 Decreased thyroid stimulating hormone (TSH) leve l 09/03/2014 Hypertension 09/03/2014 Assessment & Plan (08/26/2024 2:09 AM CNC OPERATOR MACHINIST): Home medication are 5 mg amlodipine, 50 mg HCTZ at night, 50 mg hydralazine t.i.d., 200 mg labetalol b.i.d. We will continue all home blood pressure medications Herniation of intervertebral disc of cervical re gion 08/16/2014 Resolved Problems Problem Noted Date Diagnosed Date Resolved Date Osteoporosis 08/26/2024 08/28/2024 Assessment & Plan (08/26/2024 2:07 AM CNC OPERATOR MACHINIST): Take ibanddronate every month, hold during admission Lichen planus 08/26/2024 08/26/2024 Assessment & Plan (08/26/2024 2:08 AM CNC OPERATOR MACHINIST): Monitor, will hold vario IBS (irritable bowel syndrome) 08/26/2024 08/28/2024 Assessment & Plan (08/26/2024 2:17 AM CNC OPERATOR MACHINIST): On viberzi will hold during admission Left [...] Description 01/18/2025 9:00 AM CDT Procedure visit [facility] Ophthalmology [address] [facility] 6th [place] [address] Nik Garcia MD Facial nerve spasm (Primary Dx) 01/17/2025 11:40 AM CDT - 01/17/2025 11:59 PM CDT Hospital Encounter [facility] Neuro Interventional Radiology [address] [place] [address] Spinal cord stroke (HCC); Leg weakness, bilateral Discharge Disposition: Discharge to home or self care 01/16/2025 Telephone [facility] Cardiology [address] [facility] [address] [place] [address] [place] [address] Tip Holley MD 01/16/2025 Telephone [facility] Neuro Interventional Radiology [address] [place] [address] Gisel Velasquez, LAISHA 01/15/2025 3:15 PM CDT Therapy [facility] Physical Therapy - [place] [address] [place] [address] Riccardo Juarez, PT Spinal cord stroke (HCC) (Primary Dx) 01/15/2025 Telephone [facility] Neuro Interventional Radiology [address] [place] [address] Gisel Velasquez, LAISHA 01/11/2025 10:32 AM CDT - 01/11/2025 11:59 PM CDT Hospital Encounter [facility] [address] [place] [address] Spinal cord stroke (HCC); Atypical face pain Discharge Disposition: Discharge to home or self care 01/09/2025 3:15 PM CDT Therapy [facility] - [place] [address] [place] [address] Juliet Olivares, PT Spinal cord stroke (HCC) (Primary Dx) 01/09/2025 Telephone [facility] Neuro Interventional Radiology [address] [place] [address] Gisel Velasquez RN 01/04/2025 9:42 AM CDT - 01/04/2025 11:59 PM CDT Hospital Encounter [facility] [address] [phone] Asia Tafoya MD Cervical radiculopathy (Primary Dx); Sacroiliitis Discharge Disposition: Discharge to home or self care 01/03/2025 1:00 PM CDT Therapy [facility] - [place] [address] [place] [address] Juliet Olivares, PT Spinal cord stroke (HCC) (Primary Dx) 01/02/2025 Telephone [facility] [address] [facility] 1st [place] [phone] Pam Alvarado RN Pre Arrival 01/01/2025 8:30 AM CDT Therapy [facility] - [place] [address] Riccardo Juarez, PT Spinal cord stroke (HCC) (Primary Dx) 12/29/2024 8:30 AM CDT Therapy [facility] - [place] [address] Riccardo Juarez, PT Spinal cord stroke (HCC) (Primary Dx) 12/28/2024 3:15 PM CDT Therapy [facility] - [place] [address] Juliet Olivares, PT Spinal cord stroke (HCC) (Primary Dx) 12/21/2024 6:15 PM CDT Therapy [facility] [place] [address] Riccardo Juarez, PT Spinal cord stroke (HCC) (Primary Dx) 12/20/2024 1:00 PM CDT Therapy [facility] [place] [address] Juliet Olivares, PT Spinal cord stroke (HCC) (Primary Dx); Urge incontinence; Neuromuscular dysfunction of bladder, unspecified 12/15/2024 8:30 AM CDT Therapy [facility] [place] [address] Riccardo Juarez, PT Spinal cord stroke (HCC) (Primary Dx) 12/13/2024 1:45 PM CDT Therapy [facility] [place] [address] Juliet Olivares, PT Spinal cord stroke (HCC) (Primary Dx); Urge incontinence; Neuromuscular dysfunction of bladder, unspecified 12/06/2024 7:45 AM CDT Therapy [facility] Physical [place] [address] Juliet Olivares, PT Spinal cord stroke (HCC) (Primary Dx); Urge incontinence; Neuromuscular dysfunction of bladder, unspecified 11/29/2024 2:30 PM CDT Therapy [facility] [place] [address] Riccardo Juarez, PT Spinal cord stroke (HCC) (Primary Dx) 11/22/2024 4:00 PM CDT Therapy [facility] Physical [facility] [place] [address] Juliet Olivares, PT Neuromuscular dysfunction of bladder, unspecified (Primary Dx); Urge incontinence; Spinal cord stroke (HCC) 11/17/2024 Telephone [facility] Cardiology [address] [place] [address] 8th [place] [address] [place] [address] Tip Holley MD 11/15/2024 2:30 PM CDT Therapy [facility] Physical [facility] [place] [address] Juliet Olivares, PT Neuromuscular dysfunction of bladder, unspecified; Urge incontinence 11/15/2024 Plan of Care Documentation [facility] Physical [facility] [place] [address] 11/15/2024 Telephone [facility] General Neurology [address] [facility] 6th Floor [address] [place] [address] Micah Salcido RN 11/09/2024 [facility]phone [facility] [address] [facility] [address] [place] [address] Yash Britton MD 11/08/2024 4:30 PM CDT Office Visit [facility] General Neurology [address] [facility] 6th Floor [address] [place] [address] Darwin Hoskins MD PhD Atypical face pain (Primary Dx); Spinal cord stroke (HCC) 11/07/2024 7:37 AM CDT - 11/07/2024 11:59 PM CDT Hospital Encounter [facility] Pain Center at [address] [address] Asia Tafoya MD Spondylosis of lumbar region without myelopathy or radiculopathy (Primary Dx); Cervical radiculopathy Discharge Disposition: Discharge to home or self care 11/03/2024 Telephone [facility] Pain [address] [address] Pam Alvarado RN Pre Arrival 11/02/2024 4:00 PM CDT - 11/02/2024 11:59 PM CDT Hospital Encounter [address] [address] Asia Tafoya MD Torticollis, acquired (Primary Dx); Facial pain; Cervical radiculopathy; Spondylosis of lumbar region without myelopathy or radiculopathy Discharge Disposition: Discharge to home or self care 10/23/[address] 8th [place] [address] [place] [address] Tip Holley MD from Last 3 Months [...] on file Legal Sex Female 10:45 AM CNC OPERATOR MACHINIST Gender Identity Not on file Sexual Orientation [...] home safety. Medical Devices Implanted Type Area Latex Ribbon Machine Operator Device Identifier Shelf Expiration Date Model / Serial / Lot [employer] Acrysof Iq Natural Stableforce Acrysert 6mm 13mm 1 Piece Foldable [id number].180 - [id number] - [id number] Implanted:Qty: 1 on 10/22/2021 by Tip Morrison MD at [facility] Lens Right: Eye [employer] [id number] 04/16/2026 [id number].18 0 / [id number] / Procedures Procedure Name Priority Date/Time [...] post procedure care education. Nik Garcia MD [facility] PROCEDURES Final Result * IR Lumbar Puncture, [...] FLUIDS AND S TOOLS ORDERABLES Final Result [facility] [place] [address] * Oligoclonal banding (01/17/2025 12:22 PM CDT) Oligoclonal bands, CSF 5 bands [facility] Oligoclonal bands 5 bands [facility] Oligoclonal bands, interp 0 <2 bands [facility] Comment: The oligoclonal band assay detected no unique IgG bands in the CSF. This is a negative result. Test Performed by: [facility] [address] [place] [address] Lamp Shade Assembler: Harriett Vazquez Ph.D.; CLIA# [id number] Blood/Cerebrospi nal fluid 01/17/2025 12:22 PM CDT 01/17/2025 3:55 PM CDT us Darwin Hoskins MD PhD LAB BLOOD ORDERABLES Final Result Performing Organization Address [facility] Co de Phone Number [facility] Department [place] [address] [facility] ref [facility] * (ABNORMAL) Protein, total, CSF (01/17/2025 12:22 PM CDT) Protein, CSF 51(H) 5 - 45 mg/dL CSF 01/17/2025 12:2 2 PM CDT 01/17/2025 3:19 PM CDT us Darwin Hoskins MD PhD LAB BODY FLUIDS AND S TOOLS ORDERABLES Final Result Performing Organization Address City/[facility]/ZIP Co de Phone Number [facility] Department [place] [address] * Glucose, CSF (01/17/2025 12:22 PM CDT) [...] AND S TOOLS ORDERABLES Final Result [facility] Department [place] [address] * Cytology (01/17/2025 12:20 PM CDT) Fluid (Cerebrospinal Fluid (Cytology)) 01/17/2025 12:20 PM CDT Narrative PATHOLOGY [facility] - 01/20/2025 12:26 PM CDT EPIC results best viewed via link to PDF [facility] [place] [address] Note to Patients: This report may contain [...] Gender: F : 1960 (Age: 64) Address: [address] [place] [phone] [facility] #: [id number] Taken:01/17/2025 Received:01/17/2025 Reported: 01/20/2025 Patient Type: [facility] Ancillary Service: UNKNOWN Location: Physician(s): MD John [...] By Mirtha Burnett M.D. 01/20/2025 12:26:59 JAIRON [facility]ox[facility] Gross Description A. Cerebrospinal fluid: 5 ml [...] Surgical Pathology and Flow Cytometry Departments at [facility] as part of an ongoing quality specialist program and in compliance with federally mandated [...] Surgical Pathology and Flow Cytometry Departments of [facility]. It has not been cleared or approved by the U. S. Food and Drug Administration. us Darwin Vicente Gato MD PhD LAB CYTOLOGY ORDERABL ES Final Result PATHOLOGY [facility] 3rd Floor [place], [place] [phone] * MRI Thoracic Spine W WO Contrast [...] Result * Imaging Cervical/Thoracic Epidural Steroid INJ ([id number]) (01/04/2025 10:28 AM CDT) Narrative [facility] - 01/04/2025 1:01 PM CDT The images from this study are not interpreted by Radiology. Please refer to the physician's procedure / OR operative note. Asia Tafoya MD [facility] [place] MGMT PROCEDURES Final R esult [facility] * Imaging Lumbar/Sacral Medial Branch RFA Bilateral ([id number]) (11/07/2024 8:38 AM CDT) Narrative [facility] - 11/07/2024 8:41 AM CDT The images from this study are not interpreted by Radiology. Please refer to the physician's procedure / OR operative note. Result [facility] Asia Tafoya MD IMG PAIN MGMT PROCEDURES Final R esult RAD_P[facility] from Last 3 Months Insurance [facility] Advance Directives For more information, please contact: [phone] * Full Code (Latest Code Status on File) Date Activated Date Inactivated Comments 08/26/2024 1:51 AM 09/02/2024 1:48 AM Care Teams Fire Hydrant Operator Relationship Specialty Start Date End Date John Byrd DO [address] [place] [address] PCP - General Family Medicine 08/18/22 Asia Tafoya MD Consulting Physician Pain Management 01/05/22
--- OUTSIDE RECORDS SUMMARY | 2025-01-20 16:42 | XMS_ITS | Encounter Summary ---
Author Organization [facility] Healthcare Address [address] [place] [address] Care Team Providers Care Senior Analyst Market Intelligence Name Role Phone Pratibha Jolly MD Primary Care Provider + Asia Tafoya MD Unavailable John Byrd DO Primary Care Provide r Encounter Details Date Type Department Care Team (Late st Contact Info) Description 06/07/2019 Telephone [facility] [address] [facility] 1st [place] [address] Venice Echavarria RN Social History Tobacco Use Types Packs/Day Years Used Date Smoking Tobacco: Never Smokeless Tobacco: Never Alcohol Use Standard Drinks/Week Comments No 0 (1 standard drink = 0.6 oz pur e alcohol) rarely Comments No Sex and Gender Information Value Date Recorded Sex Assigned at Not on file Legal Sex Female 10:45 AM 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
--- OUTSIDE RECORDS SUMMARY | 2025-01-20 16:42 | XMS_ITS | Encounter Summary ---
Author Organization [facility] Address [address] [place] [address] [place] [address] Care Team Providers Care Brim Buster Name Role Phone Unavailable Primary Care Provider Unavailabl e Encounter Details Date Type Department Care Team (Late st Contact Info) Description 01/19/2024 Lab Requisition [facility] - DermPath Lab [address] [facility], [facility] [place] [address] Olimpia David MD [address] [facility] [address] [place] [address] Social History Tobacco Use Types Packs/Day Years [...] PM CDT) Case Report Dermatopathology Report Case: [id number] Authorizing Provider: Olimpia David MD Collected: 01/19/2024 03:21 PM Ordering Location: [facility] Physician [facility] - Received: 01/21/2024 07:27 AM DermPath Lab [...] characteristic determined by the Dermatopathology Laboratory at [facility], directed by Dr. Maegan Tidwell. These tests need not be, and therefore are not, approved by the [place] Food and Drug Administration. The tests are used for clinical purposes. Billing Codes Specimen Charges Stain Charges 53650 1 4 2:30 PM CDT DERMATOPATHOLOGY LABORATORY Embedded Images 4 2:30 PM CDT DERMATOPATHOLOGY LABORATORY Pathology/Cytolo gy TISSUE SPECIMEN FROM SKIN / Unknown 01/19/2024 3:21 PM CDT 01/21/2024 7:27 AM CDT Olimpia David MD LAB - PATHOLOGY/CYTOLOGY OR DERABLES Final Result DERMATOPATHOLOGY LABORATORY [facility] - Department of Dermatology [address], 3rd Floor [address] [phone] documented in this encounter Visit Diagnoses Not on filedocumented in this encounter
--- OUTSIDE RECORDS SUMMARY | 2025-01-20 16:42 | XMS_ITS | Encounter Summary ---
Author Organization [facility] Healthcare Address [address] [place] [address] Care Team Providers Care Stereoptic Projection Topographer Name Role Phone Pratibha Jolly MD Primary Care Provider + Asia Tafoya MD Unavailable John Byrd DO Primary Care Provide r Encounter Details Date Type Department Care Team (Late st Contact Info) Description 03/21/2019 Telephone [facility] Speech Therapy [address] [place] [address] Marika Gross, LILY Social History Tobacco Use Types Packs/Day Years Used Date Smoking Tobacco: Never Smokeless Tobacco: Never Alcohol Use Standard Drinks/Week Comments No 0 (1 standard drink = 0.6 oz pur e alcohol) rarely Comments No Sex and Gender Information Value Date Recorded Sex Assigned at Not on file 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
--- OUTSIDE RECORDS SUMMARY | 2025-01-20 16:42 | XMS_ITS | Clinical Summary ---
Author Organization [facility] Address [facility] [place] [address] Care Team Providers Care Plastics Supervisor Name Role Phone BenyrustyemmaomariMila Ulysses JAQUEZ Primary Care Provider + Allergies Active Allergy Reactions Criticality Noted Date Comments Amoxicillin Hives Low 06/04/2024 Amoxicillin-Pot Clavulanate Hives Low 03/18/2022 Fruit Swelling 06/04/2024 LIPS Kiwi Extract Swelling High 01/03/2015 Lip swelling Other reaction(s): Hives Kiwi Fruit Swelling 06/04/2024 LIPS Levopropoxyphene Napsylate Hives Low Mangifera Indica Swelling High 01/03/2015 Lip swelling Balck Flavoring Agent (Non-Screening) Hives Low 03/18/2022 Oseltamivir [...] PREVIDENT 5000 SENSITIVE 1.1-5 % Gel Active Hinkley-3 Fatty Acids (FISH OIL) 500 MG capsule [...] CAPSULES DAILY 180 capsule 1 024 Active Pilrvefz-Lzi-Gq- FA ( OR) Act gina NYSTOP powderIndication [...] inconti nence type 11/02/2024 Spinal cord infarction ([facility]/HCC HHS/HCC) 025 Overflow incontinence of urine 11/02/2024 [...] female 07/01/2010 Hypertension 09/15/2001 Hypothyroidism 06/07/2001 Asthma ([facility]) 06/10/2000 Encounters Date Type Department Care Team Description 01/18/2025 11:20 AM CDT Office Visit [facility] - [address] [place] [phone] Mila Camejo DO Barnes, Lawrence J, PA-C Incontinence; Consult For Colonoscopy 01/18/2025 Orders Only [facility] - [facility] [address] [facility] [place] [address] Ed Mi MD 01/18/2025 Travel 11/15/2024 Scan [facility] SRVCS Scanned, [facility] 11/02/2024 8:40 AM CDT Office Visit [facility] Family & Internal Medicine [address] [address] Luchtefeld, Mila P, DO Neurologic Problem (The [...] Shingrix 10/11/2018,08/15/2018 Tdap (Generic) 07/17/2014 Zoster (Zostavax) 44206 Unt/0.65Ml 08/15/2018, Family History Medical History Relation [...] Sex Assigned at Female 08/22/2024 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 Sex Female 7:06 PM CDT Gender [...] Info) Description 01/23/2025 11:40 AM CDT Appointment [facility] Mammography [address] [place] [address] Mila Camejo DO [address] [place] [address] 02/09/2025 11:20 AM CDT Office Visit [facility] Family & Internal Medicine - [place] [address] [place] [address] Mila Camejo DO [address] [place] [address] 03/28/2025 3:30 PM CDT Hospital Encounter [facility] [place] [address] Ed Mi MD [address] [address] 03/28/2025 3:30 PM CDT - 03/28/2025 4:00 PM CDT Surgery [facility] [address] Ed Mi MD 3 [facility] [address] [place] [address] COLONOSCOPY DIAGNOSTIC WITH/WITHOUT SPECIMEN BRUSH/WASH Scheduled Procedures [...] , 05/15/2022, Additional history exists PHQ-2 (Physician [place]) Completed 09/19/2024 Meningococcal B Vaccine Aged Out [...] Care Plan Autogenerated Problem No Brandee Cheatham [facility] Medical Devices Implanted Type Area Health And Wellness Coordinator Device Identifier Shelf Expiration Date Model / Serial / Lot 36 Resoluition Clip Implanted:Qty: 1 on 12/20/2020 by Bernabe Dupree MD at [facility] N/A: Abdomen [employer] clip 06/10/2023 [id number] / / [id number] Procedures Procedure Name Priority Date/Time Associated Diagnosis [...] VE NON-REACT GINA 12/18/2022 7:49 PM CDT [facility] Comment: ANTIBODIES TO HCV NOT DETECTED. DOES NOT EXCLUDE THE POSSIBILITY OF EXPOSURE TO HCV. 12/18/2022 10:1 2 AM CDT Mila Camejo DO LABORATORY Final Re sult [facility] [address] [place] [address], [id number] from Last 3 Months or Most Recently Relevant to Health Maintenance Additional Health Concerns Active Problems Noted Date Diagnosed Date Autogenerated Problem 01/18/2025 Insurance [facility] Care Teams Plastics Supervisor Relationship Specialty Start Date End Date Mila Camejo DO [address] [place] [address] PCP - General FAMILY PRACTICE 07/17/22
--- OUTSIDE RECORDS SUMMARY | 2025-01-20 16:42 | XMS_ITS | Clinical Summary ---
Author Organization [facility] Address [address] [place] [address] Phone Care Team Providers Care Airline Manager Name Role Phone Unavailable Primary Care Provider Unavailabl e Allergies Active Allergy Reactions Criticality Noted Date Comments Amoxicillin Hives High 06/04/2024 Amoxicillin-Pot Clavulanate Hives High 03/18/2022 Fruit Extracts Swelling Low 06/04/2024 LIPS Hymenoptera Allergenic Extract Swelling Medium 09/03/2014 Kiwi Hives,Swelling High 01/03/2015 Lip swelling Other reaction(s): Hives Lip swelling Levopropoxyphene Napsylate Hives High 03/18/2022 [place] Swelling High 01/03/2015 Lip swelling Oseltamivir Hives,Itching,Oth er (See Comments) High 08/29/2019 Other reaction(s): Hives Propoxyphene Nausea and Vomiting,Unknown Low 12/20/2020 Propoxyphene-Acetaminophe n Nausea and Vomiting Low 08/19/2020 Topiramate Hives,Other (See Comments) High 08/21/2015 Constipation & Insomnia Other reaction(s): Hives Constipation & Insomnia Constipation & Insomnia Other reaction(s): Hives Tramadol Dizziness,Other (See Comments) Low 10/07/2020 Venom-Wasp Protein Swelling Medium 09/03/2014 Medications Fish Oil-Dukedom-3 Fatty Acids 300-500 mg Capsule Take 500 [...] Abstract 01/10/2025 2:30 PM CDT Office Visit [facility] - [address] [phone] Tiffanie Bowers MD Berry, Kym [address] [...] Description 04/16/2025 2:00 PM CDT Video Visit [facility] - [facility] [address] [facility] [address] [place] [address] [place] [address] [place] [address] Health Maintenance Due Date Last Done [...]
--- OUTSIDE RECORDS SUMMARY | 2025-01-20 16:42 | XMS_ITS | Encounter Summary ---
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 Legal Sex Female 7:06 PM CDT Gender Identity Female 09/19/2024 11:04 AM CDT Sexual Orientation Not on file documented as of this encounter Plan of Treatment Upcoming Encounters Date Type Department Care Team (Latest Contact Info) Description 01/23/2025 11:40 AM CDT Appointment [facility] Mammography [address] [place] [address] John Byrd DO [address] [place] [address] 02/09/2025 11:20 AM CDT Office Visit [facility] Family & Internal Medicine - [place] [address] [place] [address] John Byrd DO [address] [place] [address] 03/28/2025 3:30 PM CDT Hospital Encounter [facility] [place] [address] Ed Mi MD [address] [address] 03/28/2025 3:30 PM CDT - 03/28/2025 4:00 PM CDT Surgery [facility] [place] [address] Ed Mi MD [address] [address] COLONOSCOPY DIAGNOSTIC WITH/WITHOUT SPECIMEN BRUSH/WASH Scheduled Procedures Name Priority Associated Diagnoses Date/Ti me COLONOSCOPY DIAGNOSTIC WITH/WITHOUT SPECIMEN BRUSH/WASH Incontinence of feces, unspecified fecal incontinence type Diarrhea, unspecified type History of adenomatous and serrated colon polyps 03/28/2025 3:30 PM CDT documented as of this encounter Visit Diagnoses Not on filedocumented in this encounter Care Teams Rcis Relationship Specialty Start Date End Date John Byrd DO [address] [place] [address] PCP - General FAMILY PRACTICE 07/17/22 documented as of this encounter
--- OUTSIDE RECORDS SUMMARY | 2025-01-20 16:42 | XMS_ITS | Clinical Summary ---
Author Organization [facility] Address [address] [place] [address] Care Team Providers Care Skidder Runner Name Role Phone Unavailable Primary Care Provider Unavailabl e Source Comments [facility] [employer],non-owned Affiliates and Associated Physician Practices is amultiple site organization consisting of ambulatory clinics and hospital sitesin [place], [place], [place] and [place]. This disclosure is being madepursuant to the Care Everywhere program and may not contain all information available regarding this patient. Last updated 18.[facility] [employer] Social History Tobacco Use Types Packs/Day Years [...]
--- OUTSIDE RECORDS SUMMARY | 2025-01-20 16:42 | XMS_ITS | Encounter Summary ---
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 Legal Sex Female 7:06 PM CDT Gender [...] Info) Description 01/23/2025 11:40 AM CDT Appointment [facility] Mammography [address] [place], [place] [phone] John Byrd DO [address] [place] [address] 02/09/2025 11:20 AM CDT Office Visit [facility] Family & Internal Medicine - [facility] [address] [place] [address] John Byrd DO [address] [place] [address] 03/28/2025 3:30 PM CDT Hospital Encounter [facility] [place] [address] Ed Mi MD [address] [address] 03/28/2025 3:30 PM CDT - 03/28/2025 4:00 PM CDT Surgery [facility] [place] [address] Ed Mi MD [address] [address] COLONOSCOPY DIAGNOSTIC WITH/WITHOUT SPECIMEN BRUSH/WASH Scheduled Procedures Name Priority Associated Diagnoses Date/Ti me COLONOSCOPY DIAGNOSTIC WITH/WITHOUT SPECIMEN BRUSH/WASH Incontinence of feces, unspecified fecal incontinence type Diarrhea, unspecified type History of adenomatous and serrated colon polyps 03/28/2025 3:30 PM CDT documented as of this encounter Visit Diagnoses Not on filedocumented in this encounter Care Teams Critical Care Nurse Specialist Relationship Specialty Start Date End Date John Byrd DO [address] [place] [address] PCP - General FAMILY PRACTICE 07/17/22 documented as of this encounter
--- OUTSIDE RECORDS SUMMARY | 2025-01-20 16:42 | XMS_ITS | Encounter Summary ---
Author Organization [facility] Address [address] [place] [address] Phone Care Team Providers Care Weighter Name Role Phone Asia Tafoya MD Unavailable John Byrd DO Primary Care Provide r Encounter Details Date Type Department Care Team (Late st Contact Info) Description 01/16/2025 Telephone [facility] Cardiology [address] [facility] Advanced Medicine 8th [place] [address] [place] [address] Tip Holley MD [address] [facility] [address] [place] [address] Social History Tobacco Use Types Packs/Day Years [...] on file 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
--- OUTSIDE RECORDS SUMMARY | 2025-01-20 16:42 | XMS_ITS | Referral Summary ---
Author Organization [facility] Address [address] [place] [address] Care Team Providers Care Quantitative Manager Name Role Phone Asia Tafoya MD Unavailable John Byrd DO Primary Care Provide r Encounters Date Type Department Care Team Description 01/18/2025 9:00 AM CDT Procedure visit [facility] Ophthalmology [address] [facility] 6th [place] [phone] Nik Garcia MD Facial nerve spasm (Primary Dx) 01/17/2025 11:40 AM CDT - 01/17/2025 11:59 PM CDT Hospital Encounter [facility] Neuro Interventional Radiology [address] [place] [address] Spinal cord stroke (HCC); Leg weakness, bilateral Discharge Disposition: Discharge to home or self care 01/16/2025 Telephone [facility] Cardiology [address] [place] [address] [facility] 8th [place] [address] [place] [address] Tip Holley MD 01/16/2025 Telephone [facility] Neuro Interventional Radiology 1 [place] [address] Gisel Velasquez, LAISHA 01/15/2025 Telephone [facility] Neuro Interventional Radiology 1 [place] [address] RonGisel moreland RN 01/15/2025 3:15 PM CDT Therapy [facility] [place] [address] Riccardo Juarez, PT Spinal cord stroke (HCC) (Primary Dx) 01/11/2025 10:32 AM CDT - 01/11/2025 11:59 PM CDT Hospital Encounter [facility] [address] [place] [address] Spinal cord stroke (HCC); Atypical face pain Discharge Disposition: Discharge to home or self care 01/09/2025 Telephone [facility] Neuro Interventional Radiology [address] [place] [address] Gisel Velasquez RN 01/09/2025 3:15 PM CDT Therapy [facility] [place] [address] Juliet Olivares, PT Spinal cord stroke (HCC) (Primary Dx) 01/04/2025 9:42 AM CDT - 01/04/2025 11:59 PM CDT Hospital Encounter [facility] [place] [address] [facility] [address]st [place] [address] Asia Tafoya MD Cervical radiculopathy (Primary Dx); Sacroiliitis Discharge Disposition: Discharge to home or self care 01/03/2025 1:00 PM CDT Therapy [facility] [place] [address] Juliet Olivares, PT Spinal cord stroke (HCC) (Primary Dx) 01/02/2025 Telephone [facility] [place] [address] [facility] 1st [place] [address] Pam Alvarado RN Pre Arrival 01/01/2025 8:30 AM CDT Therapy [facility] [place] [address] Riccardo Juarez, PT Spinal cord stroke (HCC) (Primary Dx) 12/29/2024 8:30 AM CDT Therapy [facility] Physical [facility] [place] [address] Riccardo Juarez, PT Spinal cord stroke (HCC) (Primary Dx) 12/28/2024 3:15 PM CDT Therapy [facility] [place] [address] Juliet Olivares, PT Spinal cord stroke (HCC) (Primary Dx) 12/21/2024 6:15 PM CDT Therapy [facility] [place] [address] Riccardo Juarez, PT Spinal cord stroke (HCC) (Primary Dx) 12/20/2024 1:00 PM CDT Therapy [facility] [place] [address] Juliet Olivares, PT Spinal cord stroke (HCC) (Primary Dx); Urge incontinence; Neuromuscular dysfunction of bladder, unspecified 12/15/2024 8:30 AM CDT Therapy [facility] [place] [address] Riccardo Juarez, PT Spinal cord stroke (HCC) (Primary Dx) 12/13/2024 1:45 PM CDT Therapy [facility] Physical [facility] [place] [address] Juliet Olivares, PT Spinal cord stroke (HCC) (Primary Dx); Urge incontinence; Neuromuscular dysfunction of bladder, unspecified 12/06/2024 7:45 AM CDT Therapy [facility] [place] [address] Juliet Olivares, PT Spinal cord stroke (HCC) (Primary Dx); Urge incontinence; Neuromuscular dysfunction of bladder, unspecified 11/29/2024 2:30 PM CDT Therapy [facility] [place] [address] Riccardo Juarez, PT Spinal cord stroke (HCC) (Primary Dx) 11/22/2024 4:00 PM CDT Therapy [facility] [place] [address] Juliet Olivares, PT Neuromuscular dysfunction of bladder, unspecified (Primary Dx); Urge incontinence; Spinal cord stroke (HCC) 11/17/2024 Telephone [facility] Cardiology [address] [place] [address] 8th [place] [address] [place] [phone] Tip Holley MD 11/15/2024 Plan of Care Documentation [facility] [place] [address] 11/15/2024 Telephone [facility] General Neurology [address] [facility] 6th Floor [address] [place] [phone] Micah Salcido RN 11/15/2024 2:30 PM CDT Therapy [facility] [place] [address] Juliet Olivares, PT Neuromuscular dysfunction of bladder, unspecified; Urge incontinence 11/09/2024 [facility]phone [facility] [address] [facility] [address] [place] [address] Yash Britton MD 11/08/2024 4:30 PM CDT Office Visit [facility] General Neurology [address] [facility] 6th Floor [address] [place] [address] Darwin Hoskins MD PhD Atypical face pain (Primary Dx); Spinal cord stroke (HCC) 11/07/2024 7:37 AM CDT - 11/07/2024 11:59 PM CDT Hospital Encounter [facility] at [facility] [address] [facility] 1st [place] [address] Asia Tafoya MD Spondylosis of lumbar region without myelopathy or radiculopathy (Primary Dx); Cervical radiculopathy Discharge Disposition: Discharge to home or self care 11/03/2024 Telephone [facility] [place] [address] [facility] 1st [place] [address] Pam Alvarado RN Pre Arrival 11/02/2024 4:00 PM CDT - 11/02/2024 11:59 PM CDT Hospital Encounter [facility] [place] [address] [facility] 1st [place] [address] Asia Tafoya MD Torticollis, acquired (Primary Dx); Facial pain; Cervical radiculopathy; Spondylosis of lumbar region without myelopathy or radiculopathy Discharge Disposition: Discharge to home or self care 10/23/2024 Telephone [place] [id number] [facility] 8th [place] [address] [place] [address] Tip Holley MD from Last 3 Months Allergies Active Allergy Reactions Criticality Noted Date Comments Amoxicillin-Pot Clavulanate Hives Medium 03/18/2022 Propoxyphene-Acetaminophen Vomiting Low 1 Flavoring Agent (Bulk) Hives Medium 03/18/2022 Kiwi Swelling High 01/03/2015 Lip swelling Kiwi (Actinidia Chinensis) Hives,Swelling High 01/03 Lip swelling Other reaction(s): Hives Levopropoxyphene Napsylate Hives Medium 2 Black Swelling High 01/03/2015 Lip swelling [place] Flavor Hives Medium 03/18/2022 Oseltamivir Hives,Itching,Other (See comments) Medium 08/29/2019 Other reaction(s): Hives Propoxyphene Unknown 03/12/2022 Topiramate Other (See comments),Hives Medium 08/21/2015 Constipation & Insomnia Constipation & Insomnia Other reaction(s): Hives Tramadol Dizziness,Other (See comments) Low 10/07/2020 Allergen Ka-Ewrfb-Gves Protein Swelling Medium 09/03/2014 Medications PROAIR HFA [...] mcg tablet Take 112 mcg by mouth freelance interpreter/translator before breakfast Active diclofenac sodium (VOLTAREN) 1 [...] 08/30/2024 Assessment & Plan (09/01/2024 9:28 AM MEDICAL STAFF COORDINATOR): Patient has not been able to have a BM for the past several day -> Miralax, Senna, Mag citrate x1 given -Lactulose 08/30 --> multiple bowel movements subsequently -RESOLVED Spinal cord stroke 08/26/2024 Assessment & Plan (09/01/2024 9:29 AM MEDICAL STAFF COORDINATOR): Presented to OSH with acute low back [...] 08/26/2024 Assessment & Plan (08/28/2024 6:12 PM MEDICAL STAFF COORDINATOR): - Hole home mirabegron while galan in place Depression, major, recurrent 08/26/2024 Assessment & Plan (08/26/2024 2:31 AM MEDICAL STAFF COORDINATOR): Cont cymbalta and trazodone Posterior capsular opacification, [...] 01/10/2019 Assessment & Plan (08/28/2024 6:11 PM MEDICAL STAFF COORDINATOR): Continue home baclofen,duloxetine, and carbamazepine Assessment & [...] 01/03/2015 Assessment & Plan (08/28/2024 6:11 PM MEDICAL STAFF COORDINATOR): Continue home synthroid Facial pain 12/04/2014 Decreased thyroid stimulating hormone (TSH) leve l 09/03/2014 Hypertension 09/03/2014 Assessment & Plan (08/26/2024 2:09 AM MEDICAL STAFF COORDINATOR): Home medication are 5 mg amlodipine, 50 mg HCTZ at night, 50 mg hydralazine t.i.d., 200 mg labetalol b.i.d. We will continue all home blood pressure medications Herniation of intervertebral disc of cervical re gion 08/16/2014 Resolved Problems Problem Noted Date Diagnosed Date Resolved Date Osteoporosis 08/26/2024 08/28/2024 Assessment & Plan (08/26/2024 2:07 AM MEDICAL STAFF COORDINATOR): Take ibanddronate every month, hold during admission Lichen planus 08/26/2024 08/26/2024 Assessment & Plan (08/26/2024 2:08 AM MEDICAL STAFF COORDINATOR): Monitor, will hold vario IBS (irritable bowel syndrome) 08/26/2024 08/28/2024 Assessment & Plan (08/26/2024 2:17 AM MEDICAL STAFF COORDINATOR): On viberzi will hold during admission Left [...] on file Legal Sex Female 10:45 AM MEDICAL STAFF COORDINATOR Gender Identity Not on file Sexual Orientation [...] on stairs Contact your local community or [facility] for information on exercise, fall prevention programs, or options for improving home safety. Medical Devices Implanted Type Area Electrical Contacts Adjuster Device Identifier Shelf Expiration Date Model / Serial / Lot [employer] Acrysof Iq Natural Stableforce Acrysert 6mm 13mm 1 Piece Foldable Sn60wf.180 - [id number] - [id number] Implanted:Qty: 1 on 10/22/2021 by Tip Morrison MD at [facility] Lens Right: Eye [employer] [id number] 04/16/2026 [id number].18 0 / [id number] / Procedures Procedure Name Priority Date/Time [...] post procedure care education. Nik Garcia MD [facility] PROCEDURES Final Result * IR Lumbar [...] FLUIDS AND S TOOLS ORDERABLES Final Result [facility] Department [place] [address] * Oligoclonal banding (01/17/2025 12:22 PM CDT) [facility] Oligoclonal bands, CSF 5 bands [facility] Oligoclonal bands 5 bands [facility] Oligoclonal bands, interp 0 <2 bands [facility] Comment: The oligoclonal band assay detected no unique IgG bands in the CSF. This is a negative result. Test Performed by: [facility] [address] [place] [address] Sweet Dough Mixer: Harriett Vazquez Ph.D.; CLIA# [id number] Blood/Cerebrospi nal fluid 01/17/2025 12:22 PM CDT 01/17/2025 3:55 PM CDT Result [facility] Darwin Hoskins MD PhD LAB BLOOD ORDERABLES Final Result Performing Organization Address [facility] de Phone Number [facility] [place] [address] [facility] * (ABNORMAL) Protein, total, CSF (01/17/2025 12:22 PM CDT) Protein, CSF 51(H) 5 - 45 mg/dL CSF 01/17/2025 12:2 2 PM CDT 01/17/2025 3:19 PM CDT Result [facility] Darwin Hoskins MD PhD LAB BODY FLUIDS AND S TOOLS ORDERABLES Final Result Performing Organization Address [facility] Phone Number [facility] [place] [address] * Glucose, CSF (01/17/2025 12:22 PM CDT) [...] PM CDT 01/17/2025 3:19 PM CDT Result [facility] Darwin Hoskins MD PhD LAB BODY FLUIDS AND S TOOLS ORDERABLES Final Result Performing Organization Address [facility] Co de Phone Number [facility] [place] [place] [address] * Cytology (01/17/2025 12:20 PM CDT) Fluid (Cerebrospinal Fluid (Cytology)) 01/17/2025 12:20 PM CDT Narrative PATHOLOGY [facility] - 01/20/2025 12:26 PM CDT EPIC results best viewed via link to PDF [facility]a [facility] [place] [address] Note to Patients: This report may contain [...] Gender: F : 1960 (Age: 64) Address: [address] [place], [place] [phone] Hospital #: [id number] Taken:01/17/2025 Received:01/17/2025 Reported: 01/20/2025 Patient Type: [facility] Ancillary Service: UNKNOWN Location: Physician(s): MD [...] Surgical Pathology and Flow Cytometry Departments at [facility] as part of an ongoing water quality manager program and in compliance with federally mandated [...] Surgical Pathology and Flow Cytometry Departments of [facility]. It has not been cleared or approved by the U. S. Food and Drug Administration. Darwin Hoskins MD PhD LAB CYTOLOGY ORDERABL ES Final Result PATHOLOGY [facility] 3rd Floor [place], [place] [phone] * MRI Thoracic Spine W WO Contrast [...] Result * Imaging Cervical/Thoracic Epidural Steroid INJ ([id number]) (01/04/2025 10:28 AM CDT) Narrative [facility] - 01/04/2025 1:01 PM CDT The images from this study are not interpreted by Radiology. Please refer to the physician's procedure / OR operative note. Asia Tafoya MD IMG PAIN MGMT PROCEDURES Final R esult [facility] * Imaging Lumbar/Sacral Medial Branch RFA Bilateral ([id number]) (11/07/2024 8:38 AM CDT) Narrative [facility] - 11/07/2024 8:41 AM CDT The images from this study are not interpreted by Radiology. Please refer to the physician's procedure / OR operative note. Asia Tafoya MD [facility] PAIN MGMT PROCEDURES Final R [facility] Performing Organization Address City/[facility]/ZIP Co de Phone Number [facility] from Last 3 Months Insurance [facility] Advance Directives For more information, please contact: [phone] * Full Code (Latest Code Status on File) Date Activated Date Inactivated Comments 08/26/2024 1:51 AM 09/02/2024 1:48 AM Care Teams Quantitative Manager Relationship Specialty Start Date End Date John Byrd DO [address] [place] [id number] PCP - General Family Medicine 08/18/22 Asia Tafoya MD Consulting Physician Pain Management 01/05/22
[2025-01-20] MEDS: ACETAMINOPHEN 500 MG TABLET 1000 MG PO (17:31)
[2025-01-20 18:51] VITALS: BP 149/87; PULSE 62; RESP 18; TEMP 36.3; O2SAT 99
== END 2025-01-20 18:54 | disposition home or self-care (01) ==
PROVIDERS: Emergency Provider Registered Nurse Emergency; PCP Student in an Organized Health Care Education/Training Program
DX: S00.81XA Abrasion of other part of head, initial encounter (principal); I10 Essential (primary) hypertension; G47.33 Obstructive sleep apnea (adult) (pediatric); Z90.710 Acquired absence of both cervix and uterus; M47.816 Spondylosis without myelopathy or radiculopathy, lumbar region; Z79.899 Other long term (current) drug therapy; Z79.82 Long term (current) use of aspirin; W10.9XXA Fall (on) (from) unspecified stairs and steps, initial encounter
CPT/HCPCS: 70450; 70486; 99284; A9270

== ENCOUNTER 2025-05-08 08:53 | Outpatient (CLI) | payer BC, MEDICARE, SELFPAY ==
--- NOTE | ~2025-05-08 | DEXA_ITS ---
Bone Density Report Name: BLADE KENNEDY Age: 65 Sex: Female Ethnicity: White Date of : 1960 Indication: postmenopausal; screening for osteoporosis; parental hip fracture; height loss; inflammatory bowel disease; asthma or emphysema; hysterectomy; Referring Provider: DAISY SAUNDERS Study: Bone densitometry was performed. Exam Date: May 08, 2025 Accession number: [id number] Bone Density: Region BMD T-score Z-score Classification AP Spine(L1-L4) 0.766 -2.6 -0.8 Osteoporosis Femoral Neck (Left) 0.640 -1.9 -0.4 Osteopenia Total Hip (Left) 0.912 -0.2 1.0 Normal Femoral Neck (Right) 0.687 -1.5 0.1 Osteopenia Total Hip (Right) 0.934 -0.1 1.2 Normal Total Hip Mean 0.923 -0.2 1.1 Normal World Health Organization criteria for BMD impression classify patients as: Normal (T-score at or above -1.0), Osteopenia (T-score between -1.0 and -2.5), or Osteoporosis (T-score at or below -2.5). 10-year Fracture Risk: FRAX not reported because: Some T-score for Spine Total or Hip Total or Femoral Neck at or below -2.5 Treated for osteoporosis Clinical Information Provided by Patient: Parent has had a hip fracture Is being treated for osteoporosis Has used the following medications: Boniva (i.e. ibandronate), Vitamin D, Calcium Has the following medical conditions: Asthma or Emphysema, Inflammatory bowel diseases, Hysterectomy, spinal cord stroke Patient maximum height was 59.7 Menopause Age: 55 Onset of menses at age 10 Number of children 2 Impression: The patient has osteoporosis, based on the Total Spine T-score. The patient has risk factors, including: parental hip fracture. Discussion: It is important to ask patients whether they are taking their medications and to encourage continued and appropriate compliance with their osteoporosis therapies to reduce fracture risk. It is also important to review their risk factors and encourage appropriate calcium and vitamin D intakes, exercise, fall prevention and other lifestyle measures. Follow-Up: Consider a repeat BMD and Vertebral Fracture Assessment (VFA) exam in 2 years or sooner if medically necessary, to reassess this patient's status. Reported by: JACEY on 05/08/2025 10:30:00 AM. Reviewed, dictated and finalized at location A.
== END 2025-05-08 08:54 | disposition home or self-care (01) ==
LOC: MICIMG 08:55
PROVIDERS: PCP Student in an Organized Health Care Education/Training Program; Visit Provider Obstetrics & Gynecology
DX: M81.0 Age-related osteoporosis without current pathological fracture (principal); M85.852 Other specified disorders of bone density and structure, left thigh; M85.851 Other specified disorders of bone density and structure, right thigh
CPT/HCPCS: 77080

== ENCOUNTER 2025-06-04 08:31 | Outpatient (CLI) | payer BC, MEDICARE, SELFPAY ==
--- NOTE | ~2025-06-04 | NM_ITS ---
EXAMINATION: NM gian stress w perfusion DATE: 06/04/2025 12:14 INDICATION: Preoperative cardiovascular evaluation TECHNIQUE: Rest images were obtained following intravenous administration of 10.1 mCi Tc99m tetrofosmin (Myoview). The patient was infused intravenously with Lexiscan (Regadenoson). Then, 30 mCi Tc99m tetrofosmin (Myoview) was administered intravenously, and stress images were obtained. Data was recons tructed into short axis and horizontal and vertical long axis SPECT images. Gated SPECT images were also obtained. COMPARISON: 03/25/2022 FINDINGS: There is a moderate-sized mild reversible perfusion defect consistent with ischemia at the apical lateral, mid anterolateral and mid inferolateral segments. There is normal left ventricular chamber size, wall motion and ejection fraction. Left ventricular ejection fraction measures 69%. IMPRESSION: 1. Moderate-sized region of mild reversible ischemia in the circumflex coronary artery vascular distribution involving the apical lateral, mid anterolateral and mid inferolateral segments. 2. Left ventricular ejection fraction measuring 69%. Reviewed, dictated and finalized at location A. [employer] EQUIPMENT REPAIRER IMPRESSION: 1. Moderate-sized region of mild reversible ischemia in the circumflex coronary artery vascular distribution involving the apical lateral, mid anterolateral a nd mid inferolateral segments. 2. Left ventricular ejection fraction measuring 69%.
--- NOTE | 2025-06-04 08:49 | EST_ITS ---
Patient Info Name: Alan Santiago Age: 65 years : 1960 Gender: Female Ht: 58 in Wt: 184 lbs BSA: 1.90 m2 HR: 52 bpm BP: 197 / 92 mmHg Exam Date: 06/04/2025 8:49 AM Patient Status: O Admit Date: 06/04/2025 Exam Type: CA stress gian w NM A regadenoson stress test was performed. Staff Referring Physician: Mateo Morillo DO Attending Provider: Mateo Morillo DO Exercise Technologist: Cyn De León Exercise Physician: Matoe Morillo DO Summary 1. 1. Negative lexiscan stress test for ischemic ST changes by ECG criteria. 2. 2. Baseline hypertension. 3. 3. Nuclear scan to follow and will be reported separately. Please correlate with it. 4. 4. Patient informed of the above results. Protocol: Lexiscan Stress ECG Details Stage: REST Duration (min): 0 min : 51 sec HR (bpm): 55 SBP (mmHg): --- DBP (mmHg): --- Stage: REST Duration (min): 13 min : 22 sec HR (bpm): 54 SBP (mmHg): 197 DBP (mmHg): 92 Stage: STAGE 1 Duration (min): 1 min : 0 sec HR (bpm): 62 SBP (mmHg): 197 DBP (mmHg): 92 Stage: RECOVERY Duration (min): 1 min : 0 sec HR (bpm): 83 SBP (mmHg): 183 DBP (mmHg): 82 Stage: RECOVERY Duration (min): 2 min : 0 sec HR (bpm): 80 SBP (mmHg): 183 DBP (mmHg): 82 Stage: RECOVERY Duration (min): 3 min : 0 sec HR (bpm): 77 SBP (mmHg): 183 DBP (mmHg): 82 Stage: RECOVERY Duration (min): 3 min : 22 sec HR (bpm): 76 SBP (mmHg): 193 DBP (mmHg): 77 Rest HR: 54 bpm Peak HR: 83 bpm Rest Sys BP: 197 mmHg Peak Sys BP: 193 mmHg Max Pred HR: 155 bpm % Max Pred HR: 54 % Target HR: 132 bpm Max RPP: 16,019 bpm*mmHg Termination Reason: Completed protocol Cardiac Symptoms: Shortness of breath, Nausea Total Time: 1 min : 0 sec Rest Carranza BP: 92 mmHg Peak Carranza BP: 77 mmHg Total Dose: 0.4 mg Resting ECG Sinus bradycardia. Stress ECG No ST changes. Arrhythmias None. Report Signatures
--- OUTSIDE RECORDS SUMMARY | 2025-06-04 09:07 | XMS_ITS | Data Portability ---
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 This may be aggravating her shoulder also the fact that she is depending on her arms to help her get around with a walker also maybe aggravating her shoulder. We could get an MRI scan but she states she is not ready to have any sort of surgical intervention she would rather get by with conservative measures. She is doing physical therapy. At her request under sterile conditions I injected the patient's left shoulder subacromial space in the office with 4 cc of 0.5% bupivacaine and 20 mg of Kenalog. The patient tolerated the procedure well. I will see her back in 6-8 weeks see how she is doing if her symptoms continue or worsen an MRI scan may be indicated we will see how she does with time. She voiced understanding agrees above plan she will call for any further problems difficulties or questions. The patient also has severe primary osteoarthritis of both knees she is interested in doing another round of gel shots in the near future we will get that set up for her also. Not available 01/29/2025 09:53:43 02/20/2025 02/20/2025 By x-ray exam th e patient is noted to have moderately severe primary osteoarthritis both knee joints. At her request under sterile conditions I injected the patient's bilateral knee joints in the office today with Gelsyn 3 injections, the 1st injection in the series both knees. The patient tolerated the procedure well. I will see her back next week for the 2nd injection both knees. She voiced understanding agrees above plan she will call for any further problems difficulties or questions. Not available 02/20/2025 10:49:58 02/27/2025 02/27/2025 The patient has moderately severe primary osteoarthritis both knees as described. Under sterile conditions I injected both knee joints in the office today with Gelsyn 3 injections with the 2nd injection in the series. The medication comes from the specialty pharmacy. The patient tolerated both injections well. I will see her back next week for the 3rd injection both knees. She voiced understanding agrees above plan she will call for any further problems difficulties or questions. She is going to give it time see how she does with ongoing physical therapy and nonsteroidal anti-inflammatory medication also. Not available 02/27/2025 16:02:14 03/06/2025 03/06/2025 The patient has moderately severe primary osteoarthritis both knee joints as described. Under sterile conditions I injected both knee joints in the office today with Gelsyn 3 injections she got the 3rd injection in the series today for both knees from the specialty pharmacy. She tolerated the procedures well. I will see her back as needed we can do this again in 6 months versus cortisone in between we talked about this in detail she voiced understanding and agreed with the above plan she will call for any further problems difficulties or questions. Not available 03/06/2025 13:59:28 Plan of Treatment Reminders Order Date Submit Date Provider Last Modified By Organization Details Last Modified Time Details Appointments None recorded. Lab None recorded. Referral physical therapist referral - [facility] [address] , [place], [address], 10:10:32 Procedures injection/ aspiration joint/burs a (PROC) 2024 025 In-Office Order, Internal Use Only DO Not Attach Compendium DO Not Attach Compendium, Do Not Delete/merge, [id number] 13:39:36 injection/ aspiration joint/burs a (PROC) 2024 025 In-Office Order, Internal Use Only DO Not Attach Compendium DO Not Attach Compendium, Do Not Delete/merge, [id number] 15:52:12 injection/ aspiration joint/burs a (PROC) 2024 025 In-Office Order, Internal Use Only DO Not Attach Compendium DO Not Attach Compendium, Do Not Delete/merge, [id number] 5 10:17:21 injection/ aspiration joint/burs a (PROC) 2024 025 In-Office Order, Internal Use Only DO Not Attach Compendium DO Not Attach Compendium, Do Not Delete/merge, [id number] 5 09:33:33 injection/ aspiration joint/burs a (PROC) 2024 025 In-Office Order, Internal Use Only DO Not Attach Compendium DO Not Attach Compendium, Do Not Delete/merge, [id number] 08:55:47 Surgeries None recorded. Imaging XR, knee 2024 025 [facility] [place], [address], [place], [address], 5 11:30:44 XR, shoulder 2024 025 [email or web address] [facility] [place], [address], [place], [address], 5 09:25:07 Medication Orders bupivacain e HCl 0.5 % (5 mg/mL) injection solution 2024 025 [facility][id number], [address] [facility], [place], [place], [id number], 5 10:11:52 Kenalog 10 mg/mL suspension for injection 2024 025 [facility] #21521, [address] [facility], [place], [place], [id number], 5 10:12:11 bupivacain e HCl 0.5 % (5 mg/mL) injection solution 2024 025 [facility]90063, [address], [place], [place], [id number], 5 10:11:52 Kenalog 10 mg/mL suspension for injection 2024 025 [facility] #57364, [address] [facility], [place], [place], [id number], 5 10:12:11 Patient TargetsNo targets recorded. Patient Instructions Encounter Date Encounter Id Patient Instructions Last Modified By Organization Details Last Modified Time 01/29/2025 [id number] viscosupplementa tion treatment* Not available 01/30/2025 14:02:18 Reason for Referral Physical Therapist Referral for Bilateral shoulder joint pain continue Referring Physician: Idris Herrera, Orthopedic Surgery, Encounter Date: 08/10/2024 Results Created Date Observation Date Name Description Value Unit Range Abnormal Flag Note LastModifiedBy Organization Detail LastModifiedTime 08/10/19 25 XR, shoul lenard No observ ation record ed. [facility] [place] [address], [place], [address], 08/10/2024 09:20:51 02/21/20 25 XR, knee No observ ation record ed. [facility] [place] [address], [place], [address], 02/20/2025 10:50:51 Result Notes None recorded. Problems Name Problem SNOMED Code Status Onset Date Resolution Date Notes Provider Name and Address Organization Details Recorded Time Low back pain 559562878 Active Not Available [facility] 3 15:40:53 Current tear of medial cartilage AND/OR meniscus of knee Active Not Available [facility] 3 15:40:53 Enthesopat hy of hip region 34128920 Active Not Available [facility] 3 15:40:53 Derangemen t of knee 71864250 Active Not Available [facility] 3 15:40:53 Osteoarthr itis of ankle and/or foot 84821708 Active Not Available [facility] 3 15:40:53 Pain in limb 96482742 Active Not Available [facility] 3 15:40:53 Osteoarthr itis of knee 433552683 Active 2021 Not Available [facility] 3 15:40:53 Trochanter ic bursitis of right hip 6775442384176 00 Active 2021 Not Available [facility] 3 15:40:53 Osteoarthr itis 955732971 Active 2021 Not Available [facility] 3 15:40:53 Bilateral osteoarthr itis of knees 1227741135926 07 Active 2022 Madison Perez [employer] null, [place] [facility] 3 13:54:29 Pain of bilateral hip joints 2570706975748 9100 Active 2022 Madison Perez [employer] null, [place] [facility] 3 09:50:04 Bilateral trochanter ic bursitis 3144565742224 9109 Active 2022 BJ Denis [address], [address], [place], [address] , [place] [facility] 3 10:25:32 Pain of right shoulder joint 9944559316488 91 Active 2023 Cyn De Souza null, [place] [facility] 4 09:38:25 Tendinitis of rotator cuff tendon 722049035 Active 2023 Kenna Long RMA null, [place] [facility] 4 09:05:02 Pain of bilateral knee joints 4817976426298 04 Active 2023 Madison Perez [employer] null, [place] [facility] 4 09:05:26 Pain of left knee joint 8820751802741 07 Active 2023 Madison Perez [employer] null, [place] [facility] 4 14:09:03 Pain of left shoulder joint 5084888177667 9109 Active 2024 Madison Perez [employer] null, [place] [facility] 5 08:54:12 Bilateral shoulder joint pain 8858147545635 9104 Active 2024 Cyn De Souza null, [place] [facility] 5 09:14:06 Tendinitis of left rotator cuff 7859451947593 9101 Active 2024 BJ Denis [address], [address], [place], [address] , [place] [facility] 5 09:21:29 Tendinitis of right rotator cuff 9293620704654 9104 Active 2024 BJ Denis [address] [facility] [facility] [address], [place], [address] , [facility] 5 09:21:46 Primary gonarthros is, bilateral 897826388 Active 2024 Cyn islas [place] - [facility] [employer] [facility] 5 09:46:25 Notes:Some problems listed i n Document: #[id number] could not be added to this patient's chart. Please review this document and add these problems to the patient's chart manually as needed. Problem Notes None recorded. Procedures Surgical History Date Name Laterality Status Provider Name and Address Organization Details Recorded Time procedure on elbow completed [facility] 02/20/2025 10:14:37 hysterectomy completed Madison Perez [employer] [facility] 02/20/2025 10:14:11 Imaging Results None recorded. Procedure Notes None recorded. Medical Equipment None Reported. Allergies Allergen ID Allergen Name Allergen Category Reaction Reaction Severity Criticality Documentation Date Start Date Code Code System Note Provider Name and Address Organization Details Recorded Time 30733 tramadol medicatio n dizziness Not available Not available 09/09/2022 38071 RxNorm Not Available [facility] 3 15:41:51 26206 Product containin g penicilli n (product) medicatio n hives Not available Not available 02/20/2025 87460 8001 SNOMED Madison [facility]ISRAEL [facility] [address] [facility] 5 10:11:25 Medications Name Sig Start Date Stop Date [...] completed Not Available Not Available Not Available atorvastati n 40 mg tablet TAKE 1 TABLET DAILY active Not Available Not Available No t Available methocarbam ol 500 mg tablet 07/22 /2024 completed Not Available Not Available Not Available metformin 500 mg tablet active Not Available Not Available Not Available prednisone 10 mg tablet 02/20 completed Not Available Not Available Not Available labetalol [...] solution Take 20 mg by injection route. 02/20 completed Not Available Not Available Not Available prednisone 20 mg tablet 01/30 completed Not [...] mouth once a day for 1 day 02/20 completed Not Available Not Available Not Available carbamazepi ne 200 mg tablet 01/30 completed Not Available Not Available Not Available oxycodone-a cetaminophe n 5 mg-325 mg tablet 05/11 completed Not Available Not Available Not Available prednisolon e acetate 1 % eye drops,suspe nsion 01/30 completed Not Available Not Available Not Available Kenalog 10 mg/mL suspension for injection Take 20 mg by injection route. 02/20 completed [facility]: 0003- 0494- 20 Not Available Not Available [...] completed Not Available Not Available Not Available lidocaine 5 % topical patch APPLY 1 PATCH EXTERNALL Y ONTO THE SKIN DAILY active Not Available Not Available No t Available carbamazepi ne 100 mg chewable tablet 11/20 completed Not Available Not Available Not Available montelukast 10 mg tablet 05/11 completed Not Available Not Available Not Available hydralazine 50 mg tablet TAKE 1 TABLET 3 TIMES A DAY active Not Available Not Available No t Available hydrochloro thiazide 25 mg tablet TAKE 1 TABLET EVERY MORNING active Not Available Not Available No t Available zolpidem 5 mg tablet 05/11 completed [...] % (2.5 mg/mL) injection solution in office 02/20 completed lot:3 [id number] ex: 10/04 [facility]:5 63721 6830 Not Available Not Available Not Available [...] Not Available Not Available No t Available solifenacin 10 mg tablet TAKE 1 TABLET DAILY active Not Available Not Available No t Available carbamazepi ne ER 200 mg capsule,ext ended release [id number] TAKE 2 CAPSULES TWICE DAILY. MAY TAKE AN EXTRA CAPSULE ONCE DAILY [...] 21 days, for bilateral knee osteoarth ritis. 02/20 completed Not Available Not Available Not Available lidocaine (PF) 10 mg/mL (1 %) injection solution In office injection administe red by the provider 11/20 completed [facility]: 0409- 4276- 17 Not Available Not Available [...] %) injection solution IN OFFICE 01/30 completed [facility] 72283 -064- 01 Not Available Not Available Not [...] 21 days, for BILATERAL KNEE OSTEOARTH RITIS. 2024 active Not Available Not Available Not Avai lable Shingrix (PF) 50 mcg/0.5 mL intramuscul ar suspension, kit 05/11 completed Not Available Not Available Not Available Wegovy 0.25 mg/0.5 mL subcutaneou s pen injector INJECT 0.5 ML (0.25 MG) BY SUBCUTANE OUS INJECTION EVERY 7 DAYS. active Not Available Not Available No t Available Lagevrio 200 mg capsule (EUA) 01/30 completed Not Available Not Available Not Available Vitals Date Recorded Body height Body mass index (BMI) Body weight Provider Name and Address Organization Details Last Updated DateTime 08/10/2024 149.86 cm 39.2 kg/m2 07354.92 g Madison Perez [facility] 08/10/2024 08:53:14 Date Recorded Body height Body mass index (BMI) Body weight Provider Name and Address Organization Details Last Updated DateTime 01/29/2025 148.59 cm 39 kg/m2 68244.55 g Madison ChrisISRAEL garibay [facility] 01/29/2025 09:31:01 Date Recorded Body height Body mass index (BMI) Body weight Provider Name and Address Organization Details Last Updated DateTime 02/20/2025 148.59 cm 39.2 kg/m2 88015.14 g [facility] 02/20/2025 10:10:49 Date Recorded Body height Body mass index (BMI) Body weight Provider Name and Address Organization Details Last Updated DateTime 02/27/2025 148.59 cm 39.2 kg/m2 94913.14 tian Perez CNA [facility] [address] [facility] 02/27/2025 15:51:15 Date Recorded Body height Body mass index (BMI) Body weight Provider Name and Address Organization Details Last Updated DateTime 03/06/2025 148.59 cm 38.6 kg/m2 36676.37 tian Perez CNA [facility] [address] [facility] 03/06/2025 13:38:49 Social History Question Answer Notes LastModified by Organizat ion Details LastModified Time Tobacco Smoking Status Never Smoker Yeni Bello roshan [facility] [address] [facility] 02/01/2023 09:12:04 What Was The Date Of Your Most Recent Tobacco Screening? 03/06/2025 Information not available 03/06/2025 Sex: Unknown Functional Status Question Answer Note LastModified by Organization D etails LastModified Time What is your level of alcohol consumption? None Information not available 02/20/2025 Mental Status None recorded. Family History Relationship Description Onset Age of this Age Resolved Age Notes LastModified by Organization Details LastModified Time Father Heart disease [id number] Not available 09/09/2022 15:40:05 Mother Family history of stroke [email or web address] Not available 02/01 09:12:02 Mother Hypertensive disorder [email or web address] Not available 01/10 09:23:28 Sister Family history of malignant neoplasm Not available 2024 10:13:25 Sister Hypertensive disorder [email or web address] Not available 01/10 09:23:25 Sister Family history of malignant neoplasm Not available 2024 10:13:29 Father Diabetes mellitus [email or web address] Not available 01/10 09:23:49 Father Family history of malignant neoplasm Not available 2024 10:13:36 Medical History Condition Response ARTHRITIS Y ANEMIA/BLOOD DISORDER Y ASTHMA Y OSTEOPOROSIS Y URINARY/BLADDER/KIDNEY PROBLEMS Y USE OF NSAIDS Y LUNG DISEASE/DISORDER Y HYPERTENSION Y STROKE/TIA Y Gynecological HistoryNo gynecological history recorded. Obstetrics History GPAL:G 0 P 0 0 0 0 Past Encounters Encounter ID Performer Location Encounter Start Date Encounter Closed Date Diagnosis/Indication Diagnosis SNOMED-CT Code Diagnosis ICD10 Code Diagnosis IMO Codes Diagnosis Note [id number] BJ Denis [facility] [place] [address] [place] [address] 09/13/2020 00:00:00 09/13/2020 15:12:02 [id number] BJ Denis [facility] [place] [address] [place] [address] 10/25/2020 00:00:00 10/25/2020 14:15:49 [id number] BJ Denis [facility] [place] [address] [place] [address] 10/31/2020 00:00:00 10/31/2020 14:23:09 [id number] BJ Denis [facility] [place] [address] [place] [address] 11/08/2020 00:00:00 11/08/2020 14:28:21 [id number] Ed Reddy MD [facility] [place] [address] [place] [address] 07/31/2021 00:00:00 07/31/2021 09:30:21 [id number] Ed Reddy MD [facility] [place] [address] [place] [address] 11/20/2021 00:00:00 11/20/2021 10:41:34 [id number] Ed Reddy MD [facility] [place] [address] [place] [address] 11/27/2021 00:00:00 11/27/2021 09:28:12 [id number] Ed Reddy MD [facility] [place] [address] [place] [address] 12/04/2021 00:00:00 12/04/2021 09:35:53 [id number] Ed Reddy MD [facility] [place] [address] [place] [address] 06/08/2022 00:00:00 06/08/2022 09:25:47 [id number] Ed Reddy MD [facility] [place] [address] [place] [address] 02/01/2023 09:03:43 02/01/2023 11:08:01 Bilateral osteoarthritis of knees 8812282812 59556 M17.0 Pain of bi lateral hip joints 5896304451 4206557 M25.551 M25.552 Bilateral trochanteric bursitis 6037958959 5016338 M70.61 M70.62 [id number] Ed Reddy MD [facility] [place] [address] [place] [address] 02/08/2023 09:13:44 02/08/2023 09:53:51 Bilateral osteoarthritis of knees 6382284920 02723 M17.0 Pain of bi lateral hip joints 6117183698 7539879 M25.551 M25.552 Bilateral trochanteric bursitis 8390557194 0260621 M70.61 M70.62 [id number] Ed Reddy MD [facility] [place] [address] [place] [address] 02/15/2023 09:35:28 02/15/2023 10:59:35 Bilateral osteoarthritis of knees 7217682959 87168 M17.0 Bilateral trochanteric bursitis 4944637461 2616517 M70.61 M70.62 [id number] Matthew Holloway MD [facility] [place] [address] [place] [address] 06/01/2023 15:21:43 06/01/2023 15:59:26 Bilateral osteoarthritis of knees 5133589542 56566 M17.0 [id number] Filipe Merino MD [facility] [place] [address] [place] [address] 08/30/2023 09:23:09 08/30/2023 10:13:16 Bilateral osteoarthritis of knees 5759694596 58809 M17.0 Pain of ri ght shoulder joint 9363650137 6514729 M25.511 Tendinitis of right rotator cuff 8532716723 8178772 M67.324 [id number] Filipe Merino MD [facility] [place] [address] [place] [address] 10/18/2023 09:00:19 10/21/2023 13:55:34 Pain of right shoulder joint 5746416459 9508022 M25.511 Bilateral osteoarthritis of knees 5107429881 72637 M17.0 Tendinitis of rotator cuff tendon 617832355 M67.822 [id number] Filipe Merino MD [facility] [place] [address] [place] [address] 12/13/2023 08:58:07 12/13/2023 09:50:30 Bilateral osteoarthritis of knees 6855011211 06598 M17.0 Pain of bi lateral knee joints 7602192275 04821 M25.561 M25.562 Pain of ri ght shoulder joint 8191049623 5970888 M25.511 Tendinitis of rotator cuff tendon 988491123 M67.755 [id number] Filipe Merino MD [facility] [place] [address] [place] [address] 01/24/2024 08:56:46 01/24/2024 09:29:30 Bilateral osteoarthritis of knees 2926156923 14570 M17.0 Osteoarthr itis of knee 955617270 M17.11 [id number] Filipe Merino MD [facility] [place] [address] [place] [address] 01/31/2024 08:58:14 01/31/2024 09:45:39 Bilateral osteoarthritis of knees 9861934806 71625 M17.0 Osteoarthr itis of knee 301715489 M17.11 Pain of bi lateral knee joints 0341130243 12326 M25.561 M25.319 [id number] Filipe Merino MD [facility] [place] [address] [place] [address] 02/07/2024 09:11:14 02/07/2024 09:34:53 Bilateral osteoarthritis of knees 3697228850 11335 M17.0 Pain of bi lateral knee joints 6411197809 52529 M25.561 M25.740 [id number] Filipe Merino MD [facility] [place] [address] [place] [address] 05/12/2024 14:03:45 05/12/2024 15:33:36 Pain of right shoulder joint 4034480713 7281614 M25.511 Tendinitis of rotator cuff tendon 281495186 M67.813 Osteoarthr itis of knee 113544941 M17.12 Pain of le ft knee joint 7005982321 89389 M25.107 [id number] Filipe Merino MD [facility] [place] [address] [place] [address] 08/10/2024 08:48:50 08/10/2024 09:25:07 Pain of left shoulder joint 0739796618 8611784 M25.512 Bilateral shoulder joint pain 3266148175 3313927 M25.511 M25.512 Tendinitis of left rotator cuff 0305795157 8674849 M67.814 Tendinitis of right rotator cuff 0216566835 3291132 M67.999 [id number] Filipe Merino MD [facility] [place] [address] [place] [address] 01/29/2025 09:24:41 01/29/2025 09:47:21 Pain of left shoulder joint 4286386938 4542770 M25.512 Tendinitis of left rotator cuff 5264462628 5977576 M67.814 Primary go narthrosis, bilateral 919482244 M17.0 [id number] Filipe Merino MD [facility] [place] [address] [place] [address] 02/20/2025 09:59:46 02/20/2025 11:30:44 Bilateral osteoarthritis of knees 4875179336 98468 M17.0 Pain of bi lateral knee joints 4984781543 95959 M25.561 M25.844 [id number] Filipe Merino MD [facility] [place] [address] [place] [address] 02/27/2025 15:47:34 02/27/2025 16:17:48 Bilateral osteoarthritis of knees 7117710113 39246 M17.0 Pain of bi lateral knee joints 7419913197 15109 M25.561 M25.208 [id number] Filipe Merino MD [facility] [place] [address] [place] [address] 03/06/2025 13:36:32 03/06/2025 13:57:31 Bilateral osteoarthritis of knees 2182507848 10829 M17.0 Pain of bi lateral knee joints 9612978168 98685 M25.561 M25.562 Health Concerns Section Related Observation LastModified by Organization Detai ls LastModified Time None Recorded Concern Status LastModified by Organization Details LastModified Time None Recorded Advance Directives Directive None Recorded Payers Insurance Date Sequence Insurance Name Policy Number Policy Patrick Covered Member ID Patrick Member ID Guarantor Name 03/05/2025 1 [employer] 104 Alan Santiago [id number] Alan Santiago Notes Date Note Type Note Provider Name and Address Organization Details Recorded Time 08/10/2024 text/html The patient returns today for new problem. She has left [...] with her today in detail. BJ Denis [address], [place], [address], [employer] 08/10/2024 09:22:09 01/29/2025 text/html The patient returns with recurrent left shoulder pain. The last time I saw her I thought maybe she had rotator cuff tendonitis and AC joint arthrosis. Acromion is type 1-2. She did very well with the shot of cortisone in July and was doing well until recently. Now her pain has flared up again. She did have a spinal cord stroke in August she has been going through an aggressive rehab program the past few months. She was having some weakness in her lower extremities depends on her arms to help her ambulate with a walker. This has flared up her shoulder I think. She denies any new trauma or injury to the left shoulder really no new symptoms other than significant pain recurrent in nature. She comes in today requesting further evaluation and treatment. BJ Denis [address], [place], [address], [employer] 01/29/2025 09:54:13 02/20/2025 text/html The patient returns for Gelsyn 3 injection number 1 for both knees. The patient brings her medication from the specialty pharmacy. She has a history of moderately severe primary osteoarthritis in both knees. The patient has had previous cortisone injections and also gel shots. Gel shots typically worked pretty well for her it has been a year or more since her last gel shot series. She denies any new problems states her pain is about a 4 on a scale of 1-10 today some days it is worse she has a hard time getting around at times she can not stand or walk for long periods she does use a rolling walker for support. She has multiple medical issues recently had a spinal cord stroke has mostly recovered but is not a great candidate for total knee arthroplasty. She would rather get by with conservative measures. Denies any new problems no new trauma or injury no erythema he had effusion or signs of infection. We will get new x-rays today as it has been more than a year since her last knee x-rays. New past medical history sheet was reviewed and signed on the intake sheet of today's date drug allergies current medications family social history previous surgical history 10 point review of systems was reviewed and discussed in detail today with the patient. BJ Denis [address], [place], [address], [facility] 02/20/2025 10:51:37 02/27/2025 text/html The patient returns for Gelsyn 3 injections both knees. This is the 2nd injection in the series for both knees. She has received the medication from the specialty pharmacy and brings it with her. She has moderately severe primary osteoarthritis in both knee joints. Gel shots have worked pretty well for her in the past we are trying those again today. She is trying to get by with conservative measures. Denies any new problems today in either knee. Previous x-rays show moderate narrowing in the patellofemoral and tibial femoral articulations both knees. Appearance is fairly symmetric bilaterally. BJ Denis [address], [place], [address], [facility] 02/27/2025 16:02:44 03/06/2025 text/html The patient returns for Gelsyn 3 injection 3. This is for both knees. The patient has obtain the medication from the specialty pharmacy she has moderately severe primary osteoarthritis in both knee joints previous x-rays show moderate narrowing of the patellofemoral and tibial femoral articulations in both knees and appear fairly symmetric. She is starting to get some decent relief from the 1st 2 rounds of injections states she is walking more comfortably and is able to go much further and has gone from a walker to a cane now. BJ Denis [address], [place], [address], [place] [facility] 03/06/2025 13:59:59 OBGyn Episode No OBEpisode recorded.
--- OUTSIDE RECORDS SUMMARY | 2025-06-04 09:07 | XMS_ITS | Encounter Summary ---
Author Organization [facility] Address [address] [place] [address] [place] [address] Care Team Providers Care Assistant Store Manager Trainee Name Role Phone Unavailable Primary Care Provider Unavailabl e Encounter Details Date Type Department Care Team (Late st Contact Info) Description 01/19/2024 Lab Requisition [facility] - DermPath Lab [address] [facility], [facility] [address] Olimpia David MD [address] [facility] [address] [place] [address] Social History Tobacco Use Types Packs/Day Years [...] PM CDT) Case Report Dermatopathology Report Case: [id number] Authorizing Provider: Olimpia David MD Collected: 01/19/2024 03:21 PM Ordering Location: [facility]ician [facility] - Received: 01/21/2024 07:27 AM [...] determined by the Dermatopathology Laboratory at [facility], directed by Dr. Maegan Tidwell. These tests need not be, and therefore are not, approved by the [place] Food and Drug Administration. The tests are used for clinical purposes. Billing Codes Specimen Charges Stain Charges 14935 1 4 2:30 PM CDT DERMATOPATHOLOGY LABORATORY Embedded Images 4 2:30 PM CDT DERMATOPATHOLOGY LABORATORY Pathology/Cytolo gy TISSUE SPECIMEN FROM SKIN / Unknown 01/19/2024 3:21 PM CDT 01/21/2024 7:27 AM CDT Olimpia David MD LAB - PATHOLOGY/CYTOLOGY OR DERABLES Final Result DERMATOPATHOLOGY LABORATORY [facility] - Department of Dermatology [address], [address] [phone] documented in this encounter Visit Diagnoses Not on filedocumented in this encounter
--- OUTSIDE RECORDS SUMMARY | 2025-06-04 09:07 | XMS_ITS | Encounter Summary ---
Author Organization [facility] Address [facility] [place] [address] Care Team Providers Care Order Expediter Name Role Phone John Byrd Primary Care Provider + Encounter Details Date Type Department Care Team (Late st Contact Info) Description 07/30/2023 CookBritet Message Enc [facility] [address], [address] [place] [address] [place] [address] [place] [address] counseling options Social History Tobacco Use Types [...] Sex Assigned at Female 08/22/2024 10:04 AM ASSOCIATE DIRECTOR OF NURSING Legal Sex Female 7:06 PM CDT Gender Identity Female 09/19/2024 11:04 AM CDT Sexual Orientation Not on file documented as of this encounter Plan of Treatment Upcoming Encounters Date Type Department Care Team (Late st Contact Info) Description 06/15/2025 9:00 AM ASSOCIATE DIRECTOR OF NURSING Office Visit [facility] Family & Internal Medicine [address] [address] John Byrd DO [address] [place] [address] documented as of this encounter Visit Diagnoses Not on filedocumented in this encounter Care Teams Order Expediter Relationship Specialty Start Date End Date John Byrd DO [address] [place] [address] PCP - General FAMILY PRACTICE 07/17/22 documented as of this encounter
--- OUTSIDE RECORDS SUMMARY | 2025-06-04 09:07 | XMS_ITS | Clinical Summary ---
Author Organization [facility] Address [address] [place] [address] Care Team Providers Care Speeder Operator Name Role Phone Unavailable Primary Care Provider Unavailabl e Source Comments [facility],non-owned Affiliates and Associated Physician Practices is amultiple site organization consisting of ambulatory clinics and hospital sitesin [place], [place], [place] and [place]. This disclosure is being madepursuant to the Care Everywhere program and may not contain all information available regarding this patient. Last updated 18.[facility] Social History Tobacco Use Types Packs/Day Years Used Date Smoking Tobacco: Never Assessed Comments Unknown Sex and Gender Information Value Date Recorded Sex Assigned at Not on file Legal Sex Female 3:36 PM CDT Gender Identity Not on file Sexual Orientation Not on file Plan of Treatment Health Maintenance Due Date Last Done Comments BONE DENSITY TESTING 1960 COLOGUARD (AGES 45-75) - COL ON CA SCREENING 1960 COLON MONITORING 1960 COLONOSCOPY - COLON CA SCREENING 1960 CT COLONOGRAPHY - COLON CA SCREENING 1960 Colorectal Cancer Screening 1960 FIT - COLON CA SCREENING 1960 FLEX SIG - COLON CA SCREENING 1960 LIPID TESTING 1960 MAMMOGRAM 1960 HIV SCREENING 1975 HEPATITIS C SCREENING 03/19/1978 DTAP/TDAP/TD VACCINES (1 - Tdap) 1979 Cervical Cancer Screening 1981 PAP SMEAR 1981 PAP with HPV 1990 PNEUMOCOCCAL VACCINE 50+ (1 of 1 - PCV) 2010 ZOSTER VACCINE (1 of 2) 2010 DEPRESSION SCREENING 07/12/2024 COVID-19 VACCINE ( - 2024-2 6 season) 2025 INFLUENZA VACCINE (#1) 2025 Respiratory Syncytial Virus [...] patient's age to complete this topic Insurance [facility]
--- OUTSIDE RECORDS SUMMARY | 2025-06-04 09:07 | XMS_ITS | Clinical Summary ---
Author Organization [facility] Address [address] [place] [address] Phone Care Team Providers Care Seed Potato Arranger Name Role Phone Unavailable Primary Care Provider Unavailabl e Allergies Active Allergy Reactions Criticality Noted Date Comments Amoxicillin Hives High 06/04/2024 Amoxicillin-Pot Clavulanate Hives High 03/18/2022 Fruit Extracts Swelling Low 06/04/2024 LIPS Hymenoptera Allergenic Extract Swelling Medium 09/03/2014 Kiwi Hives,Swelling High 01/03/2015 Lip swelling Other reaction(s): Hives Lip swelling Levopropoxyphene Napsylate Hives High 03/18/2022 Black Swelling High 01/03/2015 Lip swelling Oseltamivir Hives,Itching,Oth er (See Comments) High 08/29/2019 Other reaction(s): Hives Propoxyphene Nausea and Vomiting,Unknown Low 12/20/2020 Propoxyphene-Acetaminophe n Nausea and Vomiting Low 08/19/2020 Topiramate Hives,Other (See Comments) High 08/21/2015 Constipation & Insomnia Other reaction(s): Hives Constipation & Insomnia Constipation & Insomnia Other reaction(s): Hives Tramadol Dizziness,Other (See Comments) Low 10/07/2020 Venom-Wasp Protein Swelling Medium 09/03/2014 Medications Fish Oil-Stanford-3 Fatty Acids 300-500 mg Capsule Take 500 mg by mouth daily. Active ondansetron (ZOFRAN ODT) 4 mg Tablet, Rapid Dissolve 4 Active tacrolimus (PROTOPIC) 0.1 % Ointment Active traZODone (DESYREL) 50 mg tablet TAKE 2 TABLETS EVERY NIGHT AT BEDTIME 5 Active amLODIPine (NORVASC) 5 mg tablet Take 5 mg by mouth daily. 3 Active aspirin (GERDA CHEWABLE) 81 mg Tablet, Chewable Take 81 mg by mouth daily. 5 09/01/19 26 Active atorvastatin (LIPITOR) 40 mg tablet Take 40 mg by mouth daily at bedtime. 5 Active baclofen (LIORESAL) 10 mg tablet Take 1 Tablet by mouth daily at bedtime. 4 Active calcium as CARBONATE-vitam in D3 (OS-JENN 500+D) 500 mg-5 mcg (200 unit) tablet Take 1 Tablet by mouth. Active carBAMazepine (CARBATROL) 200 mg Extended Release 12 hour capsule Take 400 mg by mouth 2 times daily. 5 Active celecoxib (CeleBREX) 200 mg capsule Take 200 mg by mouth daily. Active DULoxetine (CYMBALTA) 30 mg Capsule, Delayed Release(E.C.) Take 60 mg by mouth daily. 2 Active esomeprazole (NexIUM) 40 mg Capsule, Delayed Release(E.C.) Take 20 mg by mouth 2 times daily. 5 Active ibandronate (BONIVA) 150 mg tablet Take 150 mg by mouth every 30 days. 4 Active labetaloL (NORMODYNE) 200 mg tablet Take 200 mg by mouth 2 times daily. 5 Active levothyroxine 100 mcg tablet Take 112 mcg by mouth daily in the morning. Active mirabegron (MYRBETRIQ) 50 mg Extended Release 24 hour tablet Take 50 mg by mouth daily. 5 Active semaglutide, weight loss, (WEGOVY) 0.25 mg/0.5 mL Pen InjectorIndicat ions:Spinal cord infarction (CMS/HCC),Class 2 obesity,BMI 39.0-39.9,adult Inject 0.5 mL (0.25 mg) by subcutaneous injection every 7 days. 2 mL 2 5 Active Active Problems Problem Noted Date Diagnosed Date Incontinence of feces 11/02/2024 Spinal cord infarction 11/02/2024 Urinary incontinence 08/26/2024 Tendinitis of right rotator cuff 08/09/2024 Tendinitis of left rotator cuff 10/18/2023 GERD (gastroesophageal reflux disease) 06/09/202 3 Obstructive sleep apnea syndrome 12/18/2022 Hyperlipidemia 07/17/2022 [...] Encounters Date Type Department Care Team Description 05/29/2025 External Device Data [facility] ABSTRACTION Provider, Abstract 05/02/2025 External Device Data [facility]STRACTION Provider, Abstract 04/24/2025 Results Follow-Up [facility] - [address] [address] Tiffanie Bowers MD COMPREHENSIVE METABOLIC PANEL, TSH REFLEXIVE, VITAMIN D 25 HYDROXY 04/16/2025 2:00 PM CDT Video Visit [facility] - [address] [address] Tiffanie Bowers MD Primary hypertension (Primary Dx); Class 2 obesity; BMI 37.0-37.9, adult; Spinal cord infarction (CMS/HCC) 03/27/2025 External Device Data [facility] ABSTRACTION Provider, Abstract 03/13/2025 External Device Data [facility] ABSTRACTION Provider, Abstract from Last 3 Months Social History Tobacco Use Types Packs/Day Years Used Date Smoking Tobacco: Never Smokeless Tobacco: Never Alcohol Use Standard Drinks/Week Comments Never 0 (1 standard drink = 0.6 oz pur e alcohol) Comments Unknown Sex and Gender Information Value [...] CDT Inhaled Oxygen Concentration - - Weight 83.7 kg (184 lb 8 oz) 04/16/2025 1:53 PM CDT Height 148.6 cm (4' 10.5) 04/16/2025 1:53 PM CD T Body Mass Index 37.9 04/16/2025 1:53 PM CDT Plan of Treatment Upcoming Encounters Date Type Department Care Team (Late st Contact Info) Description 07/18/2025 10:00 AM CIGARETTE TESTER Video Visit [facility] - [facility] [address] [facility] [place] [address] [place] [address] [place] [address] Health Maintenance Due Date Last Done Comments Pre-Diabetes and Diabetes Screening 1960 COLORECTAL SCREENING 2005 Colorectal Cancer Screening 2005 FIT-DNA Q 3 years 2005 FIT/FOBT Q 1 year 2005 Flex Sig/CT Colonography Q 5 years 2005 RSV VACCINE (60+ or ) (1 - Risk 50-74 years 1-dose series) 2010 INFLUENZA VACCINE (#1) 2025 , 05/06/2021, 05/01/2020, Additional history exists COVID-19 Vaccine (2023-2 5 season) 2025 04/24/2024, 07/02/2023, 05/15/2022, Additional history exists OSTEOPOROSIS SCREENING 03/29/2025 03/29/2020 BREAST CANCER SCREENING 01/23/2026 01/24/20, 01/23/2025, 09/20/2023, Additional history exists DTAP/TDAP/TD VACCINES (3 - T d or Tdap) 02/16/2035 02/16/2025, 07/17/2014 ZOSTER VACCINE Completed 10/11/2018, 10/2018, 05/01/2018 PNEUMOCOCCAL VACCINE 50+ YEARS Completed 06/08/2022 , 05/30/2014 Procedures Procedure Name Priority Date/Time Associated Diagnosis Comments VITAMIN D 25 HYDROXY Routine 04/23/2025 9:32 AM CDT Class 2 obesity TSH REFLEXIVE Routine 04/23/2025 9:32 AM CDT Primary hypertension Class 2 obesity COMPREHENSIVE METABOLIC PANEL Routine 04/23/2025 9:32 AM CDT Primary hypertension Class 2 obesity from Last 3 Months Results * (ABNORMAL) TSH REFLEXIVE (04/23/2025 9:32 AM CDT) TSH 6.18(H) 0.40 - 4.50 mIU/L [facility] T4 FREE 0.8 0.8 - 1.8 ng/dL [facility] Comment: Test Performed at: [id number] [address] Dilip Gold MD Blood 04/23/2025 9:32 AM CDT 04/23/2025 9:33 AM CDT us Tiffanie Bowers MD CHEMISTRY ORDERABLES Final Resu lt [facility] [id number] [address] * (ABNORMAL) VITAMIN D 25 HYDROXY (04/23/2025 9:32 AM CDT) VITAMIN D, 25 OH, TOTAL 25(L) 30 - 100 ng/mL [id number] Comment: Vitamin D Status 25-OH Vitamin D: Deficiency: <20 ng/mL Insufficiency: 20 - 29 ng/mL Optimal: > or = 30 ng/mL For 25-OH Vitamin D testing on patients on D2-supplementation and patients for whom quantitation of D2 and D3 fractions is required, the Quest[facility]ure[facility](TM) 25-OH VIT D, (D2,D3), LC/MS/MS is recommended: order code 72354 (patients >2yrs). See Note 1 Note 1 For additional information, please refer to http://education.[employer].Qalendra/faq/EOQ650 (This link is being provided for informational/ educational purposes only.) Test Performed at: [email or web address] [address] Dilip Gold MD Blood 04/23/2025 9:32 AM CDT 04/23/2025 9:33 AM CDT us Tiffanie Bowers MD CHEMISTRY ORDERABLES Final Resu lt [facility] [phone] [facility] [address] [phone] * COMPREHENSIVE METABOLIC PANEL (04/23/2025 9:32 AM CDT) GLUCOSE 92 65 - 99 mg/dL [facility] Comment: Fasting reference interval BUN 11 7 - 25 mg/dL [facility] CREATININE 0.58 0.50 - 1.05 mg/dL [facility] GFR 100 > OR = 60 mL/min/1. 73m2 [facility] BUN/CREAT RATIO SEE NOTE: 6 - 22 (calc) [facility] Comment: Not Reported: BUN and Creatinine are within reference range. SODIUM 141 135 - 146 mmol/L [facility] POTASSIUM 4.1 3.5 - 5.3 mmol/L [facility] CHLORIDE 106 98 - 110 mmol/L [facility] CO2 29 20 - 32 mmol/L [facility] CALCIUM 10.0 8.6 - 10.4 mg/dL [facility] TOTAL PROTEIN 6.2 6.1 - 8.1 g/dL [facility] ALBUMIN 4.1 3.6 - 5.1 g/dL [facility] GLOBULIN 2.1 1.9 - 3.7 g/dL (calc) [facility] ALBUMIN/GLOBULIN RATIO 2.0 1.0 - 2.5 (calc) [facility] BILIRUBIN TOTAL 0.3 0.2 - 1.2 mg/dL [facility] ALKALINE PHOSPHATASE 114 37 - 153 U/L [facility] AST 17 10 - 35 U/L [facility] ALT 21 6 - 29 U/L [facility] Comment: Test Performed at: [id number] [id number] [address] Dilip Gold MD Blood 04/23/2025 9:32 AM CDT 04/23/2025 9:33 AM CDT us Tiffanie Bowers MD CHEMISTRY ORDERABLES Final Resu lt [facility] [phone] [facility] [address] [place] [address] from Last 3 Months Insurance [employer]AL
--- OUTSIDE RECORDS SUMMARY | 2025-06-04 09:07 | XMS_ITS | Encounter Summary ---
Author Organization [facility] Address [address] [place] [address] Care Team Providers Care Dietitian Helper Name Role Phone John Byrd Primary Care Provider + Encounter Details Date Type Department Care Team ([facility] Contact Info) Description 01/06/2023 MyChart Message Enc [facility] Medical [facility] [address] [place] [address] [employer], [facility] Provider Air Quality Message Social History Tobacco [...] Sex Assigned at Female 08/22/2024 10:04 AM PARCEL POST DELIVERY Legal Sex Female 7:06 PM CDT Gender [...] Upcoming Encounters Date Type Department Care Team ([facility] Contact Info) Description 06/15/2025 9:00 AM PARCEL POST DELIVERY Office Visit [facility] Medical [facility] Family & Internal Medicine [address] [address] John Byrd DO [address] [place] [address] documented as of this encounter Visit Diagnoses Not on filedocumented in this encounter Care Teams Dietitian Helper Relationship Specialty Start Date End Date John Byrd DO [address] [place] [address] PCP - General FAMILY PRACTICE 07/17/22 documented as of this encounter
--- OUTSIDE RECORDS SUMMARY | 2025-06-04 09:07 | XMS_ITS | Clinical Summary ---
Author Organization [facility] Address [facility] [place] [address] Care Team Providers Care Waste Reclaimer Name Role Phone Mila Camejo DO Primary Care Provider + Allergies Active Allergy Reactions Criticality Noted Date Comments Amoxicillin Hives Low 06/04/2024 Amoxicillin-Pot Clavulanate Hives Low 03/18/2022 Cefdinir Other (see comment) Medium 02/09/2025 Urinary/fecal incontinence Fruit Swelling 06/04/2024 LIPS Kiwi Extract Swelling,Hives High 01/03/2015 Lip swelling Other reaction(s): Hives Lip swelling Other reaction(s): Hives Kiwi Fruit Swelling 06/04/2024 LIPS Levopropoxyphene Napsylate Hives Medium 03/18/2022 Mangifera Indica Swelling High 01/03/2015 Lip swelling Black Flavoring Agent (Non-Screening) Hives Low 03/18/2022 Oseltamivir Itching,Other (see comment),Hives Medium 08/29/2019 Other reaction(s): Hives Penicillins Hives 05/10/2025 Phosphate Hives Low 03/18/2022 Propoxyphene Nausea and Vomiting,Unknown 12/20/2020 Topiramate Other (see comment),Hives Medium 08/21/2015 Constipation & Insomnia Other reaction(s): Hives [...] PREVIDENT 5000 SENSITIVE 1.1-5 % Gel Active Ida-3 Fatty Acids (FISH OIL) 500 MG capsule Take 500 mg by mouth daily. Active baclofen (LIORESAL) 10 MG tablet Active ondansetron (ZOFRAN-ODT) 4 MG disintegrating tabletIndication s:Medication side effect Take 1 tablet (4 mg total) by mouth every 8 (eight) hours as needed for Nausea. 30 tablet 024 Active Ywcoujyh-Dhp-Fe- FA ( OR) Act gina NYSTOP powderIndication s:Tinea corporis APPLY TO THE AFFECTED AREA THREE TIMES DAILY 60 g 024 Active amLODIPine (NORVASC) 5 MG tabletIndication s:Primary hypertension TAKE 1 TABLET DAILY 90 tablet 1 025 Active aspirin 81 MG chewable tablet Chew [...] every morning. 90 tablet 3 025 Active Na sulfate-K sulfate-Mg sulfate (SUPREP BOWEL PREP KIT) 17.5-3.13-1.6 GM/177ML SolutionIndicati ons:Incontinence of feces, unspecified fecal incontinence type,Diarrhea, unspecified type,History of adenomatous and serrated colon polyps Take 177 mLs by mouth every 12 (twelve) hours. Per GI instructions 354 mL 025 Active ibandronate (BONIVA) 150 MG tabletIndication s:Age-related osteoporosis without current pathological fracture TAKE 1 TABLET EVERY 30 DAYS 3 tablet 3 025 Active labetalol (NORMODYNE) 200 MG tabletIndication s:Primary hypertension TAKE 1 TABLET TWICE A DAY 180 tablet 1 025 Active DULoxetine (CYMBALTA) 30 MG capsuleIndicatio ns:Moderate major depression (CMS/HCC) TAKE 2 CAPSULES DAILY 180 capsule 1 025 Active levothyroxine (SYNTHROID) 112 MCG tabletIndication s:Hypothyroidism , unspecified type TAKE 1 TABLET EVERY MORNING 90 tablet 1 025 Active chlorhexidine (PERIDEX) 0.12 % solution 025 Active mirabegron ER (MYRBETRIQ) 50 MG 24 hr tabletIndication s:Overflow incontinence of urine TAKE 1 TABLET(50 MG) BY MOUTH DAILY 90 tablet 025 Active traZODone (DESYREL) 50 MG tabletIndication s:Moderate major depression (CMS/HCC) TAKE 2 TABLETS BY MOUTH EVERY NIGHT AT BEDTIME 180 tablet 025 Active celecoxib (CELEBREX) 100 MG capsuleIndicatio ns:Osteoarthriti s of lumbosacral spine without myelopathy Take 1 capsule (100 mg total) by mouth daily. 30 capsule 2 025 Active pantoprazole EC (PROTONIX) 40 MG tabletIndication s:Gastroesophage al reflux disease without esophagitis Take 1 tablet (40 mg total) by mouth 2 (two) times a day. 180 tablet 1 025 Active HYDROcodone-acet aminophen (NORCO) 5-325 MG tabletIndication s:Acute Pain < 7 Day Supply Take 1 tablet by mouth every 8 (eight) hours as needed for Pain. Indications: Acute Pain < 7 Day Supply 21 tablet Active celecoxib (CELEBREX) 100 MG capsule Take 1 capsule (100 mg total) by mouth daily. 2024 Discontinued( Reorder) traZODone (DESYREL) 50 MG tabletIndication s:Moderate major depression (CMS/HCC) TAKE 2 TABLETS EVERY NIGHT AT BEDTIME 180 tablet 1 2024 Discontinued mirabegron ER (MYRBETRIQ) 50 MG 24 hr tabletIndication s:Overflow incontinence of urine Take 1 tablet (50 mg total) by mouth daily. 90 tablet 1 2024 Discontinued semaglutide-weig ht management (WEGOVY) 0.25 mg/dose injection (PEN)Indications :Weight Loss INJECT 0.25 MG INTO THE SKIN ONCE A WEEK. INDICATIONS: WEIGHT LOSS 6 mL 2024 Discontinued( Alternate therapy) esomeprazole (NEXIUM) 40 MG capsuleIndicatio ns:Gastroesophag eal reflux disease without esophagitis TAKE 1 CAPSULE TWICE DAILY 180 capsule 2024 Discontinued ibuprofen (MOTRIN) 400 MG tablet 2024 Discontinued( Alternate therapy) HYDROcodone-acet aminophen (NORCO) 5-325 MG tabletIndication s:Acute Pain < 3 Day Supply Take 1 tablet by mouth every 6 (six) hours as needed for Pain. Indications: Acute Pain < 3 Day Supply 12 tablet 2024 Discontinued( Therapy completed) esomeprazole (NEXIUM) 40 MG capsuleIndicatio ns:Gastroesophag eal reflux disease without esophagitis TAKE 1 CAPSULE TWICE DAILY 180 capsule 2024 Discontinued( Alternate therapy) HYDROcodone-acet aminophen (NORCO) 5-325 MG tabletIndication s:Acute Pain < 7 Day Supply Take 1 tablet by mouth every 6 (six) hours as needed for Pain. Indications: Acute Pain < 7 Day Supply 20 tablet 2024 Discontinued( Reorder) HYDROcodone-acet aminophen (NORCO) 5-325 MG tabletIndication s:Acute Pain < 7 Day Supply Take 1 tablet by mouth every 8 (eight) hours as needed for Pain. Indications: Acute Pain < 7 Day Supply 21 tablet 025 2024 Discontinued( Reorder) Active Problems Problem Noted Date Diagnosed Date Pain of upper abdomen 05/18/2025 Omental infarction 05/18/2025 Diarrhea, unspecified type 01/18/2025 History of adenomatous and serrated colon polyps 01/18/2025 Left facial pain 11/02/2024 Incontinence of feces, unspecified fecal inconti nence type 11/02/2024 Spinal cord infarction 11/02/2024 Overflow incontinence of urine 11/02/2024 Arthralgia of both knees 12/13/2023 Rotator cuff [...] female 07/01/2010 Hypertension 09/15/2001 Hypothyroidism 06/07/2001 Asthma 06/10/2000 Resolved Problems Problem Noted Date Diagnosed Date Resolved Date Class 3 severe obesity due t o excess calories with serious comorbidity and body mass index (BMI) of 50.0 to 59.9 in adult 03/24/2024 Encounters Date Type Department Care Team Description 05/30/2025 8:38 AM RN ALLERGY - 05/30/2025 11:59 PM RN ALLERGY Hospital Encounter [facility] [address] [place] [address] Mila Camejo DO Barnett, Kevin, MD Discharge Disposition: Home or Self Care (Routine Discharge) 05/29/2025 1:40 PM RN ALLERGY Office Visit [facility] Family & Internal Medicine [address] [phone] Mila Camejo, DO Pain Medication Agreement (The patient presents for pain medicine follow up. ) 05/29/2025 Travel 05/25/2025 Telephone [facility] Family & Internal [address] [phone] Mila Camejo, DO Error 05/21/2025 11:59 PM RN ALLERGY Anesthesia Event [facility] Surgery [address] [place] [address] Lani Berg CRNA 05/21/2025 Telephone [facility] One Day Services [address] [place] [address] Jeannine Delarosa RN Surgical Clearance 05/18/2025 9:00 AM RN ALLERGY Office Visit [address], [address] [address] Silvestre Vasquez MD Gallbladder (Been going on since 04/30/25- also infarct of omentum) 05/18/2025 Prep for Procedure [address], [address] [address] Ramiro Zhong MD 05/18/2025 Orders Only [address], [address] [address] Silvestre Vasquez MD 05/18/2025 Telephone [facility] Family & Internal [address] [phone] Mila Camejo, DO Medication Request 05/18/2025 Travel 05/17/2025 Telephone [facility] Family & Internal [address] [phone] Mila Camejo, DO Information 05/16/2025 Scan [employer] INFO SRVCS Scanned, Doc Med Group 05/10/2025 11:40 AM CDT Office Visit [facility] Family & Internal [address] [place] [phone] Ashley Bernardo, DO ER F/U (Pt presents today forf/u from [facility] ED on 05/04 for LUQ and RUQ ab pain - Dx: Omentum and cholelithiasis - states she is not getting better and would like a refill of pain meds. ) 05/10/2025 Travel 05/08/2025 Scan [employer] HEALTH INFO SRVCS Scanned, Doc Med [facility] Bone Density Report (SCAN) 05/07/2025 Telephone [facility] Internal [address] [phone] Mila Camejo, DO Information 05/07/2025 Telephone [facility] Internal [address] [phone] Mila Camejo, DO Medication Request 05/04/2025 12:41 PM CDT - 05/04/2025 3:12 PM CDT Emergency [facility] [place] [address] Adela Rodriguez PA Abdominal Pain Discharge Disposition: Home or Self Care (Routine Discharge) 05/04/2025 Travel 05/04/2025 MyChart Message Enc [facility] Internal [address] [phone] [employer], [facility] Provider accommodation 05/04/2025 Telephone [facility] Internal [address] [phone] Mila Camejo, DO Information 04/17/2025 Scan [facility] HEALTH INFO SRVCS Scanned, Doc Med Group 04/12/2025 Telephone [facility] Internal [address] [place] [phone] Mila Camejo, DO Other 04/06/2025 Scan [facility] HEALTH INFO SRVCS Scanned, Doc Med Group 03/21/2025 Telephone [facility] Family & Internal Medicine [address] [phone] Mila Camejo, DO Advice 03/08/2025 [facility]phone [facility] - [address] [place] [phone] Ed Mi MD Called To Cancel Office Appt. 03/06/2025 Scan [facility] HEALTH INFO SRVCS Scanned, Doc Med Group 03/05/2025 Telephone [facility] - [address] [place] [phone] Ed Mi MD Prior Authorization (Colonoscopy [address]) 03/05/2025 Orders Only [facility] [address] [facility] [address] [place] [address] Ed Mi MD 03/05/[address] [place] [address] Ed Mi MD Question from Last 3 Months Immunizations Immunization Administration Dates Next Due Arexvy Respiratory Syncytial Virus (RSV, adjuvanted) 0.5 mL, PF 05/30/2023 FLUCELVAX (ccIIV3, TRIVALENT, 0.5mL) 03/21/2025 Flublok (Quadrivalent) 03/27/2019 Flulaval Quad (Multi-Dose Vial) 04/19/2017 Fluzone (IIV3, Trivalent, 0. 5 ML Prefilled Syringe) 04/11/2024 Influenza (Generic) 05/01/2020, 9,04/13/2017,2015 Influenza Adult (Generic) 05/30/2023,10/2021,04/24/2022,2020,04/26/2018,04/19/2017 PFIZER COVID-19 (12+) MRNA, LNP-S, PF, ASHELY-SUCROSE, 30 MCG/0.3 ML (COMIRNATY) 04/24/2024,07/02/2023 PFIZER COVID-19 (ORIGINAL FORMULATION, PURPLE CAP) mRNA, LNP-S, PF, 30 MCG/0.3 ML DOSE 05/15/2022,05/30/2021,10/02/2020,2020 Pneumococcal (Pneumovax 23) 05/30/2014 Pneumococcal (Prevnar 20) 06/08/2022 Shingrix 10/11/2018,08/15/2018 Tdap (Adacel) 02/16/2025,07/17/2014 Tdap (Generic) 02/16/2025,07/17/2014 Zoster (Zostavax) [address] Unt/0.65Ml 08/15/2018, Family History Medical History Relation [...] drink = 0.6 oz pur e alcohol) maybe 2 drinks per year PHQ-2 Answer Date Recorded Patient Health Questionnaire-2 Score 0 09/19/2024 Comments No Sex and Gender Information Value Date Recorded Sex Assigned at Female 08/22/2024 10:04 AM RN ALLERGY Legal Sex Female 7:06 PM CDT Gender Identity Female 09/19/2024 11:04 AM CDT Sexual Orientation Not on file Last Filed Vital Signs Vital Sign Reading Time Taken Comments Blood Pressure 128/84 05/29/2025 1:56 PM RN ALLERGY Pulse 83 05/29/2025 1:56 PM RN ALLERGY Temperature 36.3 C (97.3 F) 05/29/2025 1:56 PM RN ALLERGY Respiratory Rate 16 05/29/2025 1:56 PM RN ALLERGY Oxygen Saturation 97% 05/29/2025 1:56 PM RN ALLERGY Inhaled Oxygen Concentration - - Weight 84.5 kg (186 lb 4.8 oz) 05/29/2025 1:56 P M RN ALLERGY Height 147.3 cm (4' 10) 05/29/2025 1:56 PM RN ALLERGY Body Mass Index 38.94 05/29/2025 1:56 PM RN ALLERGY Plan of Treatment Upcoming Encounters Date Type Department Care Team (Late st Contact Info) Description 06/15/2025 9:00 AM RN ALLERGY Office Visit [facility] Family & Internal Medicine [address] [phone] Mila Camejo DO [address] [place] [id number] Health Maintenance Due Date Last Done Comments Colorectal Cancer Screening Colonoscopy (10 Years) 12/21/2023 12/20/2020 ASCVD LDL 02/10/2025 02/11/2024, 06/12, 12/18/2022 Mammogram Screening 01/23/2026 01/23/2025, 09/20/2023, 06/05/2022, Additional history exists COVID-19 Vaccine ( season) 2026 03/21/2025, 04/24/2024, 07/02/2023, Additional history exists Postponed from 09/18/2025 (Patient Refused) DTaP, Tdap and Td Vaccines (5 - Td or Tdap) 02/16/2035 02/16/2025, 02/16/2025, 07/17/2014, Additional history exists Zoster Vaccines Completed 10/11/2018, 10/2018, 08/15/2018, Additional history exists Pneumococcal Vaccine: 50+ Years Completed 06/08/2022, 05/30/2014 Hepatitis C Completed 12/18/2022 RSV Immunization or 60+ Years Completed 05/30/2023 PHQ-2 (Physician [place]) Completed 09/19/2024 Influenza Adult Completed 03/21/2025, 07/2023, 05/30/2023, Additional history exists Dexa Scan (General) Completed 05/08/2025, 0 Hepatitis A Vaccines Aged Out No long er eligible based on patient's age to complete this topic Meningococcal B Vaccine Aged Out No l onger eligible based on patient's age to complete this topic Meningococcal Vaccine Aged Out No glenda ajay eligible based on patient's age to complete this topic RSV Immunizations Under 20 Months Aged Out No longer eligible based on patient's age to complete this topic Medical Devices Implanted Type Area Medical Radiation Therapist Device Identifier Shelf Expiration Date Model / Serial / Lot 36 Resoluition Clip Implanted:Qty: 1 on 12/20/2020 by Bernabe Dupree MD at [facility] N/A: Abdomen Dittit PRAFUL clip 06/10/2023 [id number] / / [id number] Procedures Procedure Name Priority Date/Time Associated Diagnosis Comments MG/PCCL UDS W CONF Routine 05/29/2025 1: 46 PM RN ALLERGY Encounter for long-term (current) drug use BONE DENSITY GENERIC (SCAN ORDER) 05/08/2025 CT ABD+PEL W CON STAT 05/04/2025 1:19 PM CDT ECG 12-LEAD STAT 05/04/2025 1:11 PM CDT HC TROPONIN QN STAT 05/04/2025 12:48 PM CDT HC LIPASE STAT 05/04/2025 12:48 PM CDT HC COMPREHENSIVE METABOLIC PANEL STAT 05/04/2025 12:48 PM CDT HC CBC AUTO W/AUTO DIFF STAT 05/04/2025 12:48 PM CDT MG SCREENING W VERONICA CLINT DIGI Routine 01/23/2025 12:04 PM CDT Visit for screening mammogram LIPID PANEL Routine 02/11/2024 10:28 AM CDT Hyperlipidemia, unspecified hyperlipidemia type Screening for lipid disorders HEPATITIS C ANTIBODY Routine 12/18/2022 10:12 AM CDT Age-related osteoporosis without current pathological fracture Screening for lipid disorders Screening for endocrine, metabolic and immunity disorder Need for hepatitis C screening test Annual physical exam from Last 3 Months or Most Recently Relevant to Health Maintenance Results * (ABNORMAL) MG/PCCL UDS W CONF (05/29/2025 1:46 PM RN ALLERGY) RESULT SUMMARY [facility] Comment: Prescribed Prescribed Not Prescribed Consistent Inconsistent Inconsistent Hydrocodone PRESCRIBED DRUG 1 (U) Hydrocodone [facility] FENTANYL SCREEN (U) NEGATIVE <0.5 ng/mL [facility] 6 ACETYLMORPHINE (U) NEGATIVE <10 ng/mL [facility] DESMETHYLTRAMADOL (U) NEGATIVE <100 ng/mL [facility] TRAMADOL (U) NEGATIVE <100 ng/mL [facility] TRAMADOL COMMENTS [facility] Comment:See LDT Notes AMPHETAMINES PM NEGATIVE <500 ng/mL [facility] BARBITURATES PM (U) NEGATIVE <300 ng/mL [facility] BENZODIAZEPINES PM (U) NEGATIVE <100 ng/mL [facility] COCAINE METABOLITE PM (U) NEGATIVE <150 ng/mL [facility] MARIJUANA METABOLITE PM (U) NEGATIVE <20 ng/mL [facility] METHADONE PM (U) NEGATIVE <100 ng/mL [facility] OPIATES PM (U) POSITIVE(A) <100 ng/mL [facility] CODEINE PM (U) NEGATIVE <50 ng/mL [facility] HYDROCODONE PM (U) 584(H) <50 ng/mL [facility] HYDROCODONE PM MEDMATCH (U) CONSISTENT [facility] HYDROMORPHONE PM (U) 95(H) <50 ng/mL [facility] [place] HYDROMORPHONE PM MEDMATCH CONSISTENT [facility] MORPHINE PM (U) NEGATIVE <50 ng/mL [facility] [place] NORHYDROCODONE PM (U) 1,748(H) <50 ng/mL [facility] NORHYDROCODONE PM MM (U) CONSISTENT [facility] OPIATES COMMENTS [facility] Comment:See Opiates Notes, L DT Notes OXYCODONE PM (U) NEGATIVE <100 ng/mL [facility] CREATININE RANDOM (U) 88.6 > or = 20.0 mg/dL [facility] pH PM (U) 6.3 4.5 - 9.0 [facility] OXIDANT NEGATIVE <200 mcg/mL [facility] NOTE [facility] Comment: This drug testing is for medical treatment only. Analysis was performed as non-forensic testing and these results should be used only by healthcare providers to render diagnosis or treatment, or to monitor progress of medical conditions. Opiates Notes: Hydrocodone, Norhydrocodone, Hydromorphone detected is consistent with the use of the drug Hydrocodone. Hydromorphone detected is consistent with the use of the drug Hydromorphone. Hydromorphone can be a prescribed drug and is also a metabolite of Hydrocodone. LDT Notes: Confirmation tests were developed and their analytical performance characteristics have been determined by [facility]. It has not been cleared or approved by the FDA. This assay has been validated pursuant to the CLIA regulations and is used for clinical purposes. medMATCH(R) enables providers to identify if drug use is consistent or inconsistent with a corresponding prescribed medication(s) list. Healthcare Providers needing Interpretation assistance, please contact us at [phone] ( ) M-F, 8am to 10pm EST URINE URINE SPECIMEN OBTAINED BY CLEAN CATCH PROCEDURE / Unknown 05/29/2025 1:46 PM RN ALLERGY 05/30/2025 4:25 AM RN ALLERGY Narrative Resulting Agency Comment Performing Organization Information: Site ID: [id number] Name: [facility] Address: [address] [place] [address] Director: Darian Genao Site ID: [id number] Name: [facility] Address: [address] [place] [address] Director: Dilip Gold MD us Mila Swanrustyemmaomari DO URINE ORDERABLES Final R esult [facility] PHIL [id number] [address] [facility] JESSICA [address] [address], [facility] [address] [facility] [place] [address] * BONE DENSITY GENERIC (SCAN ORDER) (05/08/2025) Anatomical Region Laterality Modality Other 05/08/2025 us Doc Med Group Scanned SCANNING Final Resu lt * CT ABD+PEL W IV CON ONLY (05/04/2025 1:19 PM CDT) Anatomical Region Laterality Modality Abdomen Computed Tomogra phy 05/04/2025 1:33 PM CDT Impressions 05/04/2025 1:51 PM CDT IMPRESSION: 1. Multifocal nodular fat stranding throughout the omentum, favored to represent uncomplicated omental infarct given the history. A follow-up CT after resolution of symptoms is suggested to exclude underlying omental implants. 2. Cholelithiasis. Ordered By: CONCHITA GARCIA Interpreted By: Adela Sigala MD, 05/04/2025 1:33 PM Narrative 05/04/2025 1:51 PM CDT [address] [address] EXAMINATION: CT ABD+PEL W CON HISTORY: 65-year-old female with upper abdominal pain. TECHNIQUE: Computed tomography of the abdomen and pelvis. Oral Contrast: None. Intravenous Contrast: 100 cc Isovue-370 at the left antecubital fossa. A dose lowering technique was used for this procedure, which may include, but is not limited to, dose reduction technique, automated exposure control, the use of iterative reconstruction, and ALARA (As Low As Reasonably Achievable) / Image Gently techniques. COMPARISON: None. FINDINGS: Lower Chest: Included lung bases are clear. Calcifications of the mitral annulus. Mild cardiomegaly. Liver: Normal in size, contour, and attenuation. Biliary System: Cholelithiasis at the gallbladder neck is noted. Gallbladder itself appears normal. No biliary ductal dilatation. Pancreas: Negative. Spleen: Normal. Left upper quadrant splenules. Adrenal Glands: Negative. Kidneys: Symmetric nephrograms without hydronephrosis or urolithiasis. Few scattered right renal cysts. Bowel: Tiny hiatal hernia. Stomach is underdistended. Small bowel and colon are normal in caliber. Appendix is negative. Small umbilical hernia containing only fat. Mesentery, Omentum, and Peritoneum: Nodular fat stranding is noted in the omentum near midline (series 2 image 90). Additional nodular fat stranding in the omentum near midline as noted caudally as well (series 2 image 98). There is also subtle asymmetric thickening of the left lateral peritoneal lining along the paracolic gutter, favored to represent a small amount of free fluid tracking from the omentum (series 2 image 58). No pneumoperitoneum or significant ascites. Pelvic Organs: Hysterectomy. Urinary bladder appears normal. Lymph Nodes: No lymphadenopathy. Vasculature: Atherosclerotic calcifications. Bones and Soft Tissues: Degenerative changes of the spine and hips. Procedure Note Adela Sigala MD - 05/04/[address] [address] EXAMINATION: CT ABD+PEL W CON HISTORY: 65-year-old female with upper abdominal pain. TECHNIQUE: Computed tomography of the abdomen and pelvis. Oral Contrast: None. Intravenous Contrast: 100 cc Isovue-370 at the left antecubital fossa. A dose lowering technique was used for this procedure, which may include,but is not limited to, dose reduction technique, automated exposurecontrol, the use of iterative reconstruction, and ALARA (As Low AsReasonably Achievable) / Image Gently techniques. COMPARISON: None. FINDINGS: Lower Chest: Included lung bases are clear. Calcifications of the mitralannulus. Mild cardiomegaly. Liver: Normal in size, contour, and attenuation. Biliary System: Cholelithiasis at the gallbladder neck is noted.Gallbladder itself appears normal. No biliary ductal dilatation. Pancreas: Negative. Spleen: Normal. Left upper quadrant splenules. Adrenal Glands: Negative. Kidneys: Symmetric nephrograms without hydronephrosis or urolithiasis. Fewscattered right renal cysts. Bowel: Tiny hiatal hernia. Stomach is underdistended. Small bowel andcolon are normal in caliber. Appendix is negative. Small umbilical herniacontaining only fat. Mesentery, Omentum, and Peritoneum: Nodular fat stranding is noted in theomentum near midline (series 2 image 90). Additional nodular fat strandingin the omentum near midline as noted caudally as well (series 2 image 98).There is also subtle asymmetric thickening of the left lateral peritoneallining along the paracolic gutter, favored to represent a small amount offree fluid tracking from the omentum (series 2 image 58). Nopneumoperitoneum or significant ascites. Pelvic Organs: Hysterectomy. Urinary bladder appears normal. Lymph Nodes: No lymphadenopathy. Vasculature: Atherosclerotic calcifications. Bones and Soft Tissues: Degenerative changes of the spine and hips. IMPRESSION: 1. Multifocal nodular fat stranding throughout the omentum, favored torepresent uncomplicated omental infarct given the history. A follow-up CTafter resolution of symptoms is suggested to exclude underlying omentalimplants. 2. Cholelithiasis. Ordered By: CONCHITA GARCIA Interpreted By: Adela Sigala MD, 05/04/2025 1:33 PM [address] [place] CT Final Result * ECG 12 lead (05/04/2025 1:11 PM CDT) ECG QT 396 [facility] ECG QTC 394 [facility] 05/04/2025 1:11 PM CDT Narrative [facility] - 05/04/2025 10:26 PM CDT [address] Test Date: 2025-05-04 Pat Name: ALAN KENNEDY Department: 41 Room: EXAM23 Gender: Female Crew Member: [id number] : 1960 Requested By: ADELA RODRIGUEZ Order Number: [id number] Reading YENI Hoover Measurements Intervals [place] Rate: 59 P: 39 ND: 165 QRS: 0 QRSD: 96 T: 31 QT: 396 QTc: 394 Interpretive Statements SINUS BRADYCARDIA No previous ECG available for comparison Preliminary EKG Interpretation by Adela LORENZO Other ischemic changes, not STEMI Procedure Note Melvin Hoover MD - 05/04/[address] Test Date: 2025-05-04 Pat Name: ALAN KENNEDY Department: 41 Room: EXAM23 Gender: Female Crew Member: [id number] : 1960 Requested By: ADELA RODRIGUEZ Order Number: [id number] Reading : Melvin Hoover Measurements Intervals [place] Rate: 59 P: 39 ND: 165 QRS: 0 QRSD: 96 T: 31 QT: 396 QTc: 394 Interpretive Statements SINUS BRADYCARDIA No previous ECG available for comparison Preliminary EKG Interpretation by Adela LORENZO Other ischemic changes, not STEMI us Adela LORENZO ECG ORDERABLES Final Resu lt [facility] * (ABNORMAL) COMPREHENSIVE METABOLIC PANEL (05/04/2025 12:48 PM CDT) GLUCOSE 105(H) 70 - 99 MG/DL 05/04/2025 1:35 PM CDT [facility] BUN 11 7 - 18 MG/DL 05/04/2025 1:35 PM CDT [facility] CREATININE S/P/B 0.67 0.55 - 1.02 MG/DL 05/04/2025 1:35 PM T [facility] SODIUM S/P/B 139 136 - 145 MMOL/L 05/04/2025 1:35 PM T [facility] POTASSIUM S/P/B 4.1 3.5 - 5.1 MMOL/L 05/04/2025 1:35 PM T [facility] Comment:SLIGHT HEMOLYSIS, RE SULT MAY BE AFFECTED. CHLORIDE S/P/B 108 97 - 115 MMOL/L 05/04/2025 1:35 PM T [facility] CO2 28.0 21 - 32 MMOL/L 05/04/2025 1:35 PM T [facility] CALCIUM S/P/B 10.0 8.5 - 10.1 MG/DL 05/04/2025 1:35 PM T [facility] BILIRUBIN TOTAL S/P/B 0.6 0.2 - 1.2 MG/DL 05/04/2025 1:35 PM [facility] Comment: THIS ASSAY IS NOT RECOMMENDED FOR PATIENTS UNDERGOING TREATMENT WITH ELTROMBOPAG DUE TO THE POTENTIAL FOR FALSELY ELEVATED RESULTS. TOTAL PROTEIN S/P/B 6.9 6.4 - 8.2 G/DL 05/04/2025 1:35 PM T [facility] ALBUMIN S/P/B 3.6 3.4 - 5.0 G/DL 05/04/2025 1:35 PM T [facility] AST 30 15 - 37 U/L 05/04/2025 1:35 PM [facility] Comment:SLIGHT HEMOLYSIS, RE SULT MAY BE AFFECTED. ALT 41 14 - 55 U/L 05/04/2025 1:35 PM T [facility] ALKALINE PHOSPHATASE S/P/B 146(H) 50 - 136 U/L 05/04/2025 1:35 PM CDT [facility] ANION GAP 3.0 2 - 10 MMOL/L 05/04/2025 1:35 PM CDT [facility] BUN CREATININE RATIO 16.4 6 - 26 05/04/2025 1:35 PM CDT [facility] A/G RATIO 1.1 1.0 - 2.0 RATIO 05/04/2025 1:35 PM CDT [facility] GFR ESTIMATE >90 >90 ML/MIN/1.7 3 M2 05/04/2025 1:35 PM CDT [facility] Comment: NOTE: eGFR is not calculated for patients <18 years of age or gender unknown. This is an estimated GFR calculation using the new CKD EPI creatinine equation without race and so does not require a correction factor for race. This estimated GFR should not be used for calculating drug doses. 05/04/2025 12:4 8 PM CDT Conchita LORENZO LABORATORY Final Result [facility] [address] [place] [address], [place] [phone] * (ABNORMAL) CBC W/DIFF AUTOMATED (05/04/2025 12:48 PM CDT) WBC 7.69 4.5 - 11.0 x10'3/uL 05/04/2025 1:02 PM CDT [facility] RBC 4.42 4.20 - 5.40 x10'6/uL 05/04/2025 1:02 PM CDT [facility] HGB 14.3 12.0 - 16.0 G/DL 05/04/2025 1:02 PM CDT [facility] HCT 40.6 38.0 - 48.0 % 05/04/2025 1:02 PM CDT [facility] MCV 91.9 81.0 - 99.0 FL 05/04/2025 1:02 PM CDT [facility] MCH 32.4(H) 27.0 - 31.0 PG 05/04/2025 1:02 PM CDT [facility] MCHC 35.2 32.0 - 36.0 G/DL 05/04/2025 1:02 PM CDT [facility] RDW 12.5 11.5 - 14.5 % 05/04/2025 1:02 PM CDT [facility] PLT 226 130 - 400 x10'3/uL 05/04/2025 1:02 PM CDT [facility] MPV 9.4 9.3 - 12.2 FL 05/04/2025 1:02 PM CDT [facility] DIFFERENTIAL TYPE AUTOMATED DIFFERENTIAL 05/04/2025 1:02 PM CDT [facility] NEUTROPHILS % 60.4 % 05/04/2025 1:02 PM CDT [facility] LYMPHOCYTES % 18.7 % 05/04/2025 1:02 PM CDT [facility] MONOCYTES % 11.1 % 05/04/2025 1:02 PM CDT [facility] EOSINOPHILS 8.7 % 05/04/2025 1:02 PM CDT [facility] BASOPHILS 0.8 % 05/04/2025 1:02 PM CDT [facility] IMMATURE GRANS % 0.3 % 05/04/20 1:02 PM CDT [facility] ABS. NEUTROPHILS 4.65 1.80 - 7.70 x10'3/uL 05/04/2025 1:02 PM CDT [facility] ABS. LYMPHOCYTES 1.44 1.00 - 4.80 x10'3/uL 05/04/2025 1:02 PM CDT [facility] ABS. MONOCYTES 0.85 0.24 - 0.86 x10'3/uL 05/04/2025 1:02 PM CDT [facility] ABS. EOSINOPHILS 0.67(H) 0.04 - 0.36 x10'3/uL 05/04/2025 1:02 PM CDT [facility] ABS. BASOPHILS 0.06 0.01 - 0.08 x10'3/uL 05/04/2025 1:02 PM CDT [facility] ABS. IMMATURE GRANULOCYTES 0.02 0.00 - 0.49 x10'3/uL 05/04/2025 1:02 PM CDT [facility] 05/04/2025 12:4 8 PM CDT Conchita LORENZO LABORAT[facility] Final Result [facility] [address] [place] [address], [place] [phone] * TROPONIN, QUANT (05/04/2025 12:48 PM CDT) TROPONIN I HIGH SENSITIVITY 8 <54 ng/L 05/04/2025 1:33 PM CDT [facility] Comment: HIGH DOSES OF BIOTIN, TROPONIN-SPECIFIC AUTOANTIBODIES, AND ANTIBODY THERAPY CONTAINING HAMA MAY INTERFERE WITH THIS TEST RESULT. CORRELATION TO CLINICAL HISTORY AND PRESENTATION RECOMMENDED. 05/04/2025 12:4 8 PM CDT Adela LORENZO LABORATORY Final Resu lt [facility] [address] [place] [address], [place] [phone] * LIPASE (05/04/2025 12:48 PM CDT) LIPASE 49 13 - 75 UNITS/L 05/04/2025 1:35 PM CDT [facility] 05/04/2025 12:4 8 PM CDT Conchita L[facility]EN[facility]OR[facility] Final Result [facility] [address] [place] [address], [place] [phone] * MG SCREENING W VERONICA CLINT DIGI (01/23/2025 12:04 PM CDT) Anatomical Region Laterality Modality Breast Bilateral Mammography 01/23/2025 3:35 PM CDT Impressions 01/23/2025 3:37 PM CDT IMPRESSION: No suspicious mammographic findings. Recommendation: 1. Routine Screening, Bilateral Assessment: ACR BI-RADS 2 - BENIGN FINDING(S) Ordered By: MILA CAMEJO Interpreted By: Juan Bedoya, 01/23/2025 3:35 PM Narrative 01/23/2025 3:[address] [facility] [address] [place] [address] Examination: Screening bilateral mammogram Exam Date/Time: 01/23/2025 11:40 AM Clinical history: No current complaints. Comparison: 09/20/2023 Technique: Digital screening mammography of both breasts was performed. Breast tomosynthesis acquisitions were obtained and reviewed. This study was read with the assistance of a computer-aided detection system. Tissue density: There are scattered areas of fibroglandular density. Findings: No suspicious masses, malignant appearing calcifications, skin thickening or other abnormalities are present. No significant change from the prior exam. Mila Camejo DO MAMMO Final Re sult * (ABNORMAL) LIPID PANEL (02/11/2024 10:28 AM CDT) CHOLESTEROL 155 <200 MG/DL 02/11/2024 4:00 PM CDT [facility] TRIGLYCERIDES 166(H) <150 MG/DL 02/11/2024 4:00 PM CDT [facility] HDL 46 >40 MG/DL 02/11/2024 4:00 PM CDT [facility] LDL-C 76 <100 MG/DL 02/11/2024 4:00 PM CDT [facility] VLDL CALCULATION 33(H) 5 - 28 MG/DL 02/11/2024 4:00 PM CDT [facility] CHOL/HDL RATIO 3.4 0.0 - 4.0 02/11/2024 4:00 PM CDT [facility] LDL/HDL 1.7 0.41 - 2.13 02/11/2024 4:00 PM CDT [facility] NON HDL CHOLESTEROL 109 <140 MG/DL 02/11/2024 4:00 PM CDT [facility] 02/11/2024 10:2 8 AM CDT Mila Camejo DO LABORATORY Final Re sult [facility] [address] [place] [address], * HEPATITIS C ANTIBODY (12/18/2022 10:12 AM CDT) HEPATITIS C AB NON-REACTI VE NON-REACT GINA 12/18/2022 7:49 PM CDT [facility] Comment: ANTIBODIES TO HCV NOT DETECTED. DOES NOT EXCLUDE THE POSSIBILITY OF EXPOSURE TO HCV. 12/18/2022 10:1 2 AM CDT Mila Camejo DO LABORATORY Final Re sult [facility] [address] [place] [address], [phone] from Last 3 Months or Most Recently Relevant to Health Maintenance Insurance [facility] MEDICARE Care Teams Waste Reclaimer Relationship Specialty Start Date End Date Mila Camejo DO [address] [place] [address] PCP - General FAMILY PRACTICE 07/17/22
--- OUTSIDE RECORDS SUMMARY | 2025-06-04 09:07 | XMS_ITS | Continuity of Care Document ---
Author Organization [place] [facility] [place] [facility], [facility] Address [address] [place] [address] Care Team Providers Care Wool Washer Feeder Name Role Phone MILA CAMEJO Primary Care Provider MILA CAMEJO Referring Provider [phone] Assessment Encounter Date Assessment Date Assessment LastModified by Organization Details LastModified Time 03/06/2025 03/06/2025 The patient has moderately severe [...] Details Last Modified Time Details Appointments None record ed. Lab None record ed. Referral None record ed. Procedures inject ion/as pirati on joint/ bursa (PROC) 025 03/06/20 25 In-Office Order, Internal Use Only DO Not Attach Compendium DO Not Attach Compendium, Do Not Delete/merge, [address] 13:39:36 Surgeries None record ed. Imaging None record ed. Medication Orders None record ed. Patient TargetsNo targets recorded. Patient InstructionsNo instructions recorded. Reason for Referral None Reported. Results Created Date Observation Date Name Description Value Unit Range Abnormal Flag Note LastModifiedBy Organization Detail LastModifiedTime 02/21/20 25 XR, knee No observ ation record ed. [facility] [address], [place], [address], 02/20/2025 10:50:51 Result Notes None recorded. Problems Name Problem SNOMED Code Status Onset Date Resolution Date Notes Provider Name and Address Organization Details Recorded Time Low back pain 313497596 Active Not Available [facility] 3 15:40:53 Current tear of medial cartilage AND/OR meniscus of knee Active Not Available [facility] 3 15:40:53 Enthesopat hy of hip region 27615518 Active Not Available [facility] 3 15:40:53 Derangemen t of knee 79013259 Active Not Available [facility] 3 15:40:53 Osteoarthr itis of ankle and/or foot 34897001 Active Not Available [facility] 3 15:40:53 Pain in limb 57547801 Active Not Available [facility] 3 15:40:53 Osteoarthr itis of knee 806170087 Active 2021 Not Available [facility] 3 15:40:53 Trochanter ic bursitis of right hip 4591158919925 00 Active 2021 Not Available [facility] 3 15:40:53 Osteoarthr itis 238361943 Active 2021 Not Available [facility] 3 15:40:53 Bilateral osteoarthr itis of knees 4605412555500 07 Active 2022 Madison Perez CNA null, [place] [facility] 3 13:54:29 Pain of bilateral hip joints 7000387859514 9100 Active 2022 Madison Perez CNA null, [place] [facility] 3 09:50:04 Bilateral trochanter ic bursitis 9553167429368 9109 Active 2022 BJ Denis [address], [place], [address] , [place] [facility] 3 10:25:32 Pain of right shoulder joint 9844396341348 9100 Active 2023 Cyn Ap null, [place] [facility] 4 09:38:25 Tendinitis of rotator cuff tendon 922377012 Active 2023 Kenna Long RMA null, [place] [facility] 4 09:05:02 Pain of bilateral knee joints 9623189850637 04 Active 2023 Madison Perez RESOURCE CONSERVATIONIST null, [place] [facility] 4 09:05:26 Pain of left knee joint 5827586544207 07 Active 2023 Madison Perez RESOURCE CONSERVATIONIST null, [place] [facility] 4 14:09:03 Pain of left shoulder joint 6911228465299 9109 Active 2024 Madison Perez RESOURCE CONSERVATIONIST null, [place] [facility] 5 08:54:12 Bilateral shoulder joint pain 2949224562683 9104 Active 2024 Cyn Ap null, [place] [facility] 5 09:14:06 Tendinitis of left rotator cuff 2176204885501 9101 Active 2024 BJ Denis [address], [place], [address] , [place] [facility] 5 09:21:29 Tendinitis of right rotator cuff 3744461170336 9104 Active 2024 BJ Denis [address], [place], [address] , [place] [facility] 5 09:21:46 Primary gonarthros is, bilateral 688048759 Active 2024 Cyn Ap null, [place] [facility] 5 09:46:25 Notes:Some problems listed i n Document: #[id number] could not be added to this patient's chart. Please review this document and add these problems to the patient's chart manually as needed. Problem Notes None recorded. Procedures Surgical History Date Name Laterality Status Provider Name and Address Organization Details Recorded Time procedure on elbow completed Madison Perez CNA [facility] 02/20/2025 10:14:37 hysterectomy completed Madison Perez CNA [facility] 02/20/2025 10:14:11 Imaging Results None recorded. Procedure Notes None recorded. Medical Equipment None Reported. Allergies Allergen ID Allergen Name Allergen Category Reaction Reaction Severity Criticality Documentation Date Start Date Code Code System Note Provider Name and Address Organization Details Recorded Time 39353 tramadol medicatio n dizziness Not available Not available 09/09/2022 70011 RxNorm Not Available [facility] 3 15:41:51 90020 Product containin g penicilli n (product) medicatio n hives Not available Not available 02/20/2025 35815 8001 SNOMED Madison Perez CNA [facility] 10:11:25 Medications Name Sig Start Date Stop [...] t Available methocarbam ol 500 mg tablet 01/30 [...] injection Take 20 mg by injection route. 02/[address] [facility]: 0003- 0494- 20 Not Available Not [...] 02/20 completed lot:3 [id number] ex: 10/[address] [facility]:5 88647 6830 Not Available Not Available Not Available [...] ne ER 200 mg capsule,ext ended release [id number] TAKE 2 CAPSULES TWICE DAILY. MAY TAKE [...] administe red by the provider 11/[address] [facility]: 0409- 4276- 17 Not Available Not [...] %) injection solution IN OFFICE 01/[address] [facility] 24076 -064- 01 Not Available Not Available Not [...] Updated DateTime 03/06/2025 148.59 cm 38.6 kg/m2 44868.37 g Madison Perez CNA [employer] 03/06/2025 13:38:49 Social History Question Answer Notes LastModified by Organizat ion Details LastModified Time Tobacco Smoking Status Never Smoker Yeni islas, [employer] 02/01/2023 09:12:04 What Was The Date Of [...] Organization Details LastModified Time Father Heart disease [id number] Not available 09/09/2022 15:40:05 Mother Family history of stroke [id number] Not available 02/01 09:12:02 Mother Hypertensive disorder [...] Y OSTEOPOROSIS Y USE OF NSAIDS Y URINARY/BLADDER/KIDNEY PROBLEMS Y LUNG DISEASE/DISORDER Y HYPERTENSION Y STROKE/TIA Y Gynecological HistoryNo gynecological history recorded. Obstetrics History GPAL:G 0 P 0 0 0 0 Past Encounters Encounter ID Performer Location Encounter Start Date Encounter Closed Date Diagnosis/Indication Diagnosis SNOMED-CT Code Diagnosis ICD10 Code Diagnosis IMO Codes Diagnosis Note [id number] Filipe Merino MD [facility] [place] [address] [place] [address] 02/20/2025 09:59:46 02/20/2025 11:30:44 Bilateral osteoarthritis of knees 8233009547 69261 M17.0 Pain of bi lateral knee joints 6023959143 37144 M25.561 M25.280 [id number] Filipe Merino MD [facility] [place] [address] [place] [address] 02/27/2025 15:47:34 02/27/2025 16:17:48 Bilateral osteoarthritis of knees 7635544934 59706 M17.0 Pain of bi lateral knee joints 2506521023 06176 M25.561 M25.981 [id number] Filipe Merino MD [facility] [place] [address] [place] [address] 03/06/2025 13:36:32 03/06/2025 13:57:31 Bilateral osteoarthritis of knees 9537276940 45706 M17.0 Pain of bi lateral knee joints 5929487143 46596 M25.561 M25.562 Health Concerns Section Related Observation LastModified by Organization Detai ls LastModified Time None Recorded Concern Status LastModified by Organization Details LastModified Time None Recorded Payers Encounter Date Sequence Insurance Name Policy Number Policy Patrick Covered Member ID Patrick Member ID Guarantor Name 03/06/2025 1 [employer] 104 Alan Santiago [id number] Alan Santiago Notes Date Note Type Note Provider Name and Address Organization Details Recorded Time 03/06/2025 text/html The patient returns for Gelsyn [...] walker to a cane now. BJ Denis [address] [place] [address], [place] [address], [place], [address], [place] [facility] [employer] 03/06/2025 13:59:59 OBGyn Episode No OBEpisode recorded.
--- OUTSIDE RECORDS SUMMARY | 2025-06-04 09:07 | XMS_ITS | Encounter Summary ---
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 Wish to be (Past 1 Month) No 05/04/2025 12:36 PM CDT Yani Espinal RN Activ e 2. Non-Specific Active Suicidal Thoughts (Past 1 Month) No 05/04/2025 12:36 PM CDT Yani Espinal RN Activ e 6. Suicidal Behavior (Lifetime) No 05/04/2025 12:36 PM CDT Yani Espinal RN Activ e documented as of this encounter Plan of Treatment Upcoming Encounters Date Type Department Care Team (Late st Contact Info) Description 06/15/2025 9:00 AM SWITCHBOARD WIRE WORKER HELPER Office Visit [facility] Family & Internal Medicine [address] [address] John Byrd DO [address] [place] [phone] documented as of this encounter Visit Diagnoses Not on filedocumented in this encounter Care Teams Health Outreach Worker Relationship Specialty Start Date End Date John Byrd DO [address] [place] [address] PCP - General FAMILY PRACTICE 07/17/22 documented as of this encounter
== END 2025-06-04 08:32 | disposition home or self-care (01) ==
PROVIDERS: PCP Student in an Organized Health Care Education/Training Program; Visit Provider Internal Medicine Cardiovascular Disease
DX: Z01.810 Encounter for preprocedural cardiovascular examination (principal); I24.89 Other forms of acute ischemic heart disease; D64.9 Anemia, unspecified
CPT/HCPCS: 78452; 93017; A9502; J2785